=== PATIENT | female | born 1970 | race Caucasian/White ===

== ENCOUNTER 2016-07-27 13:03 | Emergency (ER) | payer BC ==
[~2016-07-27 13:03] MED LIST: ASPI81TA60 PO; DIAM500C PO; LIPI10TA PO; LIPI20TA PO; LOPR50TA PO; METO25TAB PO; PRED5TA PO; SENO8.6T2 PO; VITA500T53 PO
[2016-07-27] MEDS ORDERED: MORPHINE 4 MG/ML 1ML SYRINGE As Ordered ONE (14:40)
[2016-07-27] MEDS ORDERED: KETOROLAC 30 MG/ML VIAL (J1885) As Ordered ONE (14:40)
--- NOTE | 2016-07-27 15:02 | REP ---
Clinical: Renal colic. Comparison: 07/10/2014 Findings: Lung bases clear. Visualized heart and pericardium normal. Fatty infiltration to the liver noted. Spleen, pancreas, gallbladder, bilateral adrenal glands and kidneys are normal for noncontrast evaluation. The enteric system is without obstruction or acute inflammatory process. Pelvis demonstrates normal bladder and evidence for prior hysterectomy. Small left ovarian cyst is likely physiologic. An epidural catheter at the level of the L3 extends through the subcutaneous tissues into the abdomen. No pelvic fluid or ascites. No obvious adenopathy. Abdominal aorta without aneurysm. Skeletal structures without focal osseous abnormality. Impression: No acute intra-abdominal or pelvic pathology appreciated. Fatty infiltration to the liver. Chronic stable changes as described above. Signed by Tristan Christensen MD 07/27/2016 02:54 P
[2016-07-27 15:07] LABS: BASO % 0.3 % (0.0-1.0); EOS # 0.1 K/mm3 (0.0-0.50); EOS % 0.7 % (0.0-3.0); LARGE UNSTAINED CELL # 0.1 K/mm3 (0.0-0.4); LARGE UNSTAINED CELL % 0.9 % (0.0-4.0); LYMPH # 1.7 K/mm3 (1.5-4.5); MEAN CORPUSCULAR HEMOGLOBIN 28.7 pg (27.0-33.0); MEAN CORPUSCULAR HGB CONC 32.8 g/dl (32.0-36.5); MEAN CORPUSCULAR VOLUME 87.6 fl (80.0-96.0); MONO # 0.6 K/mm3 (0.0-0.8); NEUTROPHILS # 12.5 K/mm3 (1.8-7.7); NEUTROPHILS % 83.2 % (36.0-66.0); PLATELET COUNT, AUTOMATED 314 k/mm3 (150-450); RED CELL DISTRIBUTION WIDTH 13.4 % (11.5-14.5); WHITE BLOOD COUNT 15.1 K/mm3 (4.0-10.0)
[2016-07-27 15:26] LABS: ALBUMIN 3.6 GM/DL (3.2-5.2); ALBUMIN/GLOBULIN RATIO 0.84 (1.00-1.93); ALKALINE PHOSPHATASE 116 U/L (45-117); ALT/SGPT 33 U/L (12-78); AMYLASE 25 U/L (25-115); ANION GAP 7 MEQ/L (8-16); AST/SGOT 14 U/L (15-37); BILIRUBIN,DIRECT < 0.1 MG/DL (0.0-0.2); BILIRUBIN,TOTAL 0.3 MG/DL (0.2-1.0); BLOOD UREA NITROGEN 10 MG/DL (7-18); CARBON DIOXIDE LEVEL 29 MEQ/L (21-32); CHLORIDE LEVEL 103 MEQ/L (98-107); CREATININE FOR GFR 0.75 MG/DL (0.55-1.02); GLOMERULAR FILTRATION RATE > 60.0 (>58); GLUCOSE, FASTING 92 MG/DL (70-105); POTASSIUM SERUM 4.1 MEQ/L (3.5-5.1); SODIUM LEVEL 139 MEQ/L (136-145); TOTAL PROTEIN 7.9 GM/DL (6.4-8.2)
[2016-07-27] MEDS ORDERED: PHENAZOPYRIDINE 100 MG TAB As Ordered ONE (15:40)
[2016-07-27] MEDS ORDERED: NITROFURANTOIN (MACROBID) 100 MG CAP As Ordered ONE (15:40)
--- NOTE | 2016-07-27 15:50 | EDDOCDS ---
Physician Documentation [facility] Name: Mayra Tena Age: 46 yrs Sex: Female : 1970 Arrival Date: 07/27/2016 Time: 13:03 Bed I5 / M5 Private MD: Karen Montemayor Disposition: 07/27/16 15:40 Discharged to Home/Self Care. Impression: Urinary tract infection, site not specified, Fatty (change of) liver, not elsewhere classified. - Condition is Stable. - Discharge Instructions: Urinary Tract Infection, [id number]. - Prescriptions for Pyridium 200 mg Oral Tablet - take 1 tablet by ORAL route every 8 hours for 3 days; 9 tablet. Macrobid 100 mg Oral Capsule - take 100 milligram by ORAL route every 12 hours for 10 days; 20 capsule. Percocet 5- 325 mg Oral Tablet - take 1 tablet by ORAL route every 6 hours As needed MDD: 4 tabs; 10 tablet. - Medication Reconciliation, Local Pharmacy Hours form. - Follow up: Karen Montemayor; When: 1 - 2 days; Reason: Recheck today's complaints, Continuance of care. Follow up: Emergency Department; Reason: Worsening of conditions. - Problem is new. - Symptoms have improved. Historical: - Allergies: no known allergies; - Home Meds: 1. aspirin 81 mg Oral chew 1 tab once daily 2. metformin 500 mg Oral Tb24 2 tabs once daily 3. lisinopril 10 mg Oral tab 1 tab once daily - PMHx: CVA; psoriatic arthritis; TIA; Hypertension; Diabetes - NIDDM: controlled; - PSHx: LP shunt; Cervical Laminectomy; Appendectomy; Hysterectomy; Tubal ligation; ; - Social history: Smoking status: No barriers to communication noted, The patient speaks fluent Faroese. - Family history: Not pertinent. - : The pt / caregiver states he / she is not on anticoagulants. Home medication list is obtained from the patient. 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 3 in. (160.02 cm) (R); Pain 4/10; 15:34 BP 129 / 62; Pulse 75; Resp 20; Temp 97.3(O); Pulse Ox 100% on R/A; Pain 1/10; jml1 13:06 Body Mass Index 38.62 (98.88 kg, 160.02 cm) sar1 MDM: 13:31 UA Ordered. EDMS 13:31 Urine Culture Ordered. EDMS 14:24 UA Reviewed. ef1 14:32 NS 0.9% 1000 ml IV at bolus once ordered. ef1 14:32 ketorolac 30 mg IVP once ordered. ef1 14:32 IV Saline Lock ordered. ef1 14:32 Undress patient appropriately for examination ordered. ef1 14:32 morphine 4 mg IVP once ordered. ef1 14:34 Amylase Ordered. EDMS 14:34 Basic Metabolic Profile Ordered. EDMS 14:34 CBC with Diff Ordered. EDMS 14:34 Lipase Ordered. EDMS 14:34 Liver Profile Ordered. EDMS 14:34 CT ABD & PELVIS: No Contrast Ordered. EDMS 14:34 NOTHING BY MOUTH+DIET ordered. EDMS 15:33 Basic Metabolic Profile Reviewed. ef1 15:33 CBC with Diff Reviewed. ef1 15:33 Liver Profile Reviewed. ef1 15:33 Amylase Reviewed. ef1 15:33 Lipase Reviewed. ef1 15:33 CT ABD & PELVIS: No Contrast Reviewed. ef1 15:35 Nitrofurantoin 100 mg PO once ordered. ef1 15:35 Phenazopyridine 200 mg PO once ordered. ef1 Administered Medications: 14:56 Drug: NS 0.9% 1000 ml [sodium chloride 0.9 % intravenous solution] Route: IV; Rate: hs1 bolus; Site: right antecubital; 14:56 Drug: ketorolac 30 mg [ketorolac 30 mg/mL (1 mL) injection solution (1 mL)] Route: IVP; hs1 Site: right antecubital; 14:56 Drug: morphine 4 mg [morphine 4 mg/mL intravenous cartridge (1 mL)] Route: IVP; Site: hs1 right antecubital; 15:44 Drug: Nitrofurantoin 100 mg [nitrofurantoin macrocrystal 50 mg capsule (2 caps)] Route: jmb PO; 15:44 Drug: Phenazopyridine 200 mg [phenazopyridine 100 mg tablet (2 tabs)] Route: PO; ina Signatures: Dispatcher [employer] Bin PedroRN Rachelle Lyles PA-C PA-C ef1 Jose Eduardo TeixeiraRN RN jmb Carmelita Pena RN hs1 MTDD
--- NOTE | 2016-07-27 15:50 | EDDOCDS ---
Nurse's Notes [facility] Name: Mayra Tena Age: 46 yrs Sex: Female : 1970 Arrival Date: 07/27/2016 Time: 13:03 Bed I5 / M5 Private MD: Karen Montemayor Diagnosis: Urinary tract infection, site not specified;Fatty (change of) liver, not elsewhere classified Presentation: 07/27 13:10 Presenting complaint: Patient states: burning with urination, frequency, cloudy urine, po pressure and lower back pain. Adult Sepsis Screening: The patient does not have new or worsening altered mentation. Patient's respiratory rate is less than 22. Systolic blood pressure is greater than 100. Patient has a qSOFA score of 0- Negative Sepsis Screen. Suicide/Homicide risk assessment- the patient denies having any suicidal and/or homicidal ideations and does not present with any other emotional, behavioral or mental health complaints. Status: Patient is not a statistical machine servicer or dependent. Transition of care: patient was not received from another setting of care. 13:10 Acuity: TESSA Level 4 po 13:10 Method Of Arrival: Walkin/Carried/Asstd po Triage Assessment: 13:16 General: Appears in no apparent distress, Behavior is appropriate for age, cooperative. po Pain: Location: low back area and suprapubic area Pain currently is 4 out of 10 on a pain scale. Quality of pain is described as pressure, Is continuous. HIV screening NA for this visit Offered previously. Neurological: Level of Consciousness is awake, alert, Oriented to person, place, time. Respiratory: Airway is patent Respiratory effort is even, unlabored. : Reports burning with urination urinary frequency. Derm: Skin is pink, warm & dry. 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 aspirin 81 mg Oral chew 1 tab once daily 2. metformin 500 mg Oral Tb24 2 tabs once daily 3. lisinopril 10 mg Oral tab 1 tab once daily - PMHx: CVA; psoriatic arthritis; TIA; Hypertension; Diabetes - NIDDM: controlled; - PSHx: LP shunt; Cervical Laminectomy; Appendectomy; Hysterectomy; Tubal ligation; ; - Social history: Smoking status: No barriers to communication noted, The patient speaks fluent Yemeni. - Family history: Not pertinent. - : The pt / caregiver states he / she is not on anticoagulants. Home medication list is obtained from the patient. 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 Screenin:58 Screening information is obtained from the patient. Fall risk: No risks identified. hs1 Assistance ADL's: requires no assistance with activities of daily living. Abuse/DV Screen: The patient / caregiver reports he/she is: not in a situation that causes fear, pain or injury. Nutritional screening: No deficits noted. Advance Directives: There is no active DNR order. home support is adequate. Assessment: 14:58 General: Appears in no apparent distress, Behavior is appropriate for age, cooperative. hs1 Pain: Location: pelvis. Cardiovascular: No deficits noted. GI: Reports nausea. : Reports burning with urination urinary frequency. Derm: Skin is pink, warm & dry. normal. 15:24 Reassessment: Patient appears in no apparent distress at this time. Patient states hs1 feeling better. Patient states symptoms have improved. Pain: Location: pelvis Pain currently is 4 out of 10 on a pain scale. Quality of pain is described as burning. 15:45 General: Patient instructed on discharge instructions. Patient asked if there were any [facility] questions regarding discharge, patient stated no. IV discontinued per hospital policy. Patient signed discharge instructions. Patient discharged in stable condition. . Vital Signs: 13:06 BP 122 / 67; Pulse 85; Resp 18; Temp 97.4(O); Pulse Ox 99% on R/A; Weight 98.88 kg (R); sar1 Height 5 ft. 3 in. (160.02 cm) (R); Pain 4/10; 15:34 BP 129 / 62; Pulse 75; Resp 20; Temp 97.3(O); Pulse Ox 100% on R/A; Pain 1/10; jml1 13:06 Body Mass Index 38.62 (98.88 kg, 160.02 cm) [facility] Vitals: 13:06 Log In Time: July 27, 2016 at 13:06. [facility] ED Course: 13:04 Patient visited by Teri Pérez, Motion Picture Projectionist. sar1 13:04 Patient moved to Waiting sar 13:06 Karen Montemayor MD is Private Physician. sar1 13:07 Patient moved to Pre RCE sar1 13:12 Triage Initiated po 13:16 Arm band placed on right wrist. Patient placed in waiting room. po 13:18 Patient visited by Bin Hernandez RN. po 13:49 Patient moved to Triage 3 rn1 13:58 Urine Culture Sent. rn1 13:58 UA Sent. rn1 14:17 Rachelle Ferrari PA-C is [facility]. ef1 14:17 Miya Cruz MD is Attending Physician. ef1 14:19 Patient visited by Rachelle Ferrari PA-C. ef1 14:33 Mary Rodriguez, JAMAAL is Primary Nurse. ms18 14:33 Patient moved to I5 / M5 ms18 14:50 Inserted saline lock: 20 gauge in right antecubital area and blood collected. The hs1 patient tolerated the procedure well. 14:56 Amylase Sent. hs1 14:56 Basic Metabolic Profile Sent. hs1 14:56 CBC with Diff Sent. hs1 14:56 Lipase Sent. hs1 14:57 Liver Profile Sent. hs1 14:58 Patient visited by Carmelita Pena RN. hs1 15:31 CT ABD & PELVIS: No Contrast Returned. EDMS 15:33 Patient visited by Rachelle Ferrari PA-C. ef1 15:34 Patient visited by Zeeshan Jo. jml1 15:40 Karen Montemayor MD is Referral Physician. ef1 15:45 The patient / caregiver is instructed regarding the plan of care and ED course. jmb 15:45 Discontinued lock intact, bleeding controlled, pressure dressing applied, No jmb redness/swelling at site. No procedures done that require assistance. Administered Medications: 14:56 Drug: NS 0.9% 1000 ml [sodium chloride 0.9 % intravenous solution] Route: IV; Rate: hs1 bolus; Site: right antecubital; 14:56 Drug: ketorolac 30 mg [ketorolac 30 mg/mL (1 mL) injection solution (1 mL)] Route: IVP; hs1 Site: right antecubital; 14:56 Drug: morphine 4 mg [morphine 4 mg/mL intravenous cartridge (1 mL)] Route: IVP; Site: hs1 right antecubital; 15:44 Drug: Nitrofurantoin 100 mg [nitrofurantoin macrocrystal 50 mg capsule (2 caps)] Route: [facility] PO; 15:44 Drug: Phenazopyridine 200 mg [phenazopyridine 100 mg tablet (2 tabs)] Route: PO; [facility] Order Results: Lab Order: UA; SPEC'M 07/27/16 13:55 Test: APPEARANCE, URINE; Value: CLEAR; Range: CLEAR; Status: F Test: COLOR, URINE; Value: COLORLESS; Range: YELLOW; Status: F Test: PH,URINE; Value: 6.0; Range: 5.0-9.0; Units: UNITS; Status: F Test: SPECIFIC GRAVITY URINE AUTO; Value: 1.000; Range: 1.002-1.035; Abnormal: Below low normal; Status: F Test: PROTEIN, URINE AUTO; Value: NEGATIVE; Range: NEGATIVE; Units: mg/dL; Status: F Test: GLUCOSE, URINE (UA) AUTO; Value: NEGATIVE; Range: NEGATIVE; Units: mg/dL; Status: F Test: KETONE, URINE AUTO; Value: NEGATIVE; Range: NEGATIVE; Units: mg/dL; Status: F Test: UROBILINOGEN, URINE AUTO; Value: 0.2; Range: 0.0-2.0; Units: mg/dL; Status: F Test: BILIRUBIN, URINE AUTO; Value: NEGATIVE; Range: NEGATIVE; Status: F Test: NITRITE, URINE AUTO; Value: NEGATIVE; Range: NEGATIVE; Status: F Test: LEUKOCYTE ESTERASE, URINE AUTO; Value: 3+; Range: NEGATIVE; Abnormal: Above high normal; Status: F Test: BLOOD, URINE BLOOD; Value: 3+; Range: NEGATIVE; Abnormal: Above high normal; Status: F Test: WBC, URINE AUTO; Value: 7; Range: 0-3; Abnormal: Above high normal; Units: /HPF; Status: F Test: RBC, URINE AUTO; Value: 0; Range: 0-3; Units: /HPF; Status: F Test: BACTERIA, URINE AUTO; Value: NEGATIVE; Range: NEGATIVE; Status: F Test: SQUAMOUS EPITHELIAL CELL UR AU; Value: 0; Range: 0-6; Units: /HPF; Status: F Test: HYALINE CAST, URINE AUTO; Value: 0; Range: 0-1; Units: /LPF; Status: F Lab Order: Amylase; SPEC'M 07/27/16 14:53 Test: AMYLASE; Value: 25; Range: 25-115; Units: U/L; Status: F Lab Order: Basic Metabolic Profile; SPEC'M 07/27/16 14:53 Test: GLUCOSE, FASTING; Value: 92; Range: 70-105; Units: MG/DL; Status: F Test: BLOOD UREA NITROGEN; Value: 10; Range: 7-18; Units: MG/DL; Status: F Test: CREATININE FOR GFR; Value: 0.75; Range: 0.55-1.02; Units: MG/DL; Status: F Test: GLOMERULAR FILTRATION RATE; Value: > 60.0; Range: >58; Status: F Test: SODIUM LEVEL; Value: 139; Range: 136-145; Units: MEQ/L; Status: F Test: POTASSIUM SERUM; Value: 4.1; Range: 3.5-5.1; Units: MEQ/L; Status: F Test: CHLORIDE LEVEL; Value: 103; Range: 98-107; Units: MEQ/L; Status: F Test: CARBON DIOXIDE LEVEL; Value: 29; Range: 21-32; Units: MEQ/L; Status: F Test: ANION GAP; Value: 7; Range: 8-16; Abnormal: Below low normal; Units: MEQ/L; Status: F Test: CALCIUM LEVEL; Value: 9.0; Range: 8.5-10.1; Units: MG/DL; Status: F Test Note: ; Units are mL/min/1.73 m2 Chronic Kidney Disease Staging per NKF: Stage I & II GFR >=60 Normal to Mildly Decreased Stage III GFR 30-59 Moderately Decreased Stage IV GFR 15-29 Severely Decreased Stage V GFR <15 Very Little GFR Left ESRD GFR <15 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 Lab Order: CBC with Diff; SPEC'M 07/27/16 14:53 Test: WHITE BLOOD COUNT; Value: 15.1; Range: 4.0-10.0; Abnormal: Above high normal; Units: K/mm3; Status: F Test: RED BLOOD COUNT; Value: 4.87; Range: 4.00-5.40; Units: M/mm3; Status: F Test: HEMOGLOBIN; Value: 14.0; Range: 12.0-16.0; Units: g/dl; Status: F Test: HEMATOCRIT; Value: 42.7; Range: 36.0-47.0; Units: %; Status: F Test: MEAN CORPUSCULAR VOLUME; Value: 87.6; Range: 80.0-96.0; Units: fl; Status: F Test: MEAN CORPUSCULAR HEMOGLOBIN; Value: 28.7; Range: 27.0-33.0; Units: pg; Status: F Test: MEAN CORPUSCULAR HGB CONC; Value: 32.8; Range: 32.0-36.5; Units: g/dl; Status: F Test: RED CELL DISTRIBUTION WIDTH; Value: 13.4; Range: 11.5-14.5; Units: %; Status: F Test: PLATELET COUNT, AUTOMATED; Value: 314; Range: 150-450; Units: k/mm3; Status: F Test: NEUTROPHILS %; Value: 83.2; Range: 36.0-66.0; Abnormal: Above high normal; Units: %; Status: F Test: LYMPH %; Value: 11.0; Range: 24.0-44.0; Abnormal: Below low normal; Units: %; Status: F Test: MONO %; Value: 4.0; Range: 0.0-5.0; Units: %; Status: F Test: EOS %; Value: 0.7; Range: 0.0-3.0; Units: %; Status: F Test: BASO %; Value: 0.3; Range: 0.0-1.0; Units: %; Status: F Test: LARGE UNSTAINED CELL %; Value: 0.9; Range: 0.0-4.0; Units: %; Status: F Test: NEUTROPHILS #; Value: 12.5; Range: 1.8-7.7; Abnormal: Above high normal; Units: K/mm3; Status: F Test: LYMPH #; Value: 1.7; Range: 1.5-4.5; Units: K/mm3; Status: F Test: MONO #; Value: 0.6; Range: 0.0-0.8; Units: K/mm3; Status: F Test: EOS #; Value: 0.1; Range: 0.0-0.50; Units: K/mm3; Status: F Test: BASO #; Value: 0.0; Range: 0.0-0.2; Units: K/mm3; Status: F Test: LARGE UNSTAINED CELL #; Value: 0.1; Range: 0.0-0.4; Units: K/mm3; Status: F Lab Order: Lipase; SPEC'M 07/27/16 14:53 Test: LIPASE; Value: 76; Range: 73-393; Units: U/L; Status: F Lab Order: Liver Profile; SPEC'M 07/27/16 14:53 Test: AST/SGOT; Value: 14; Range: 15-37; Abnormal: Below low normal; Units: U/L; Status: F Test: ALT/SGPT; Value: 33; Range: 12-78; Units: U/L; Status: F Test: ALKALINE PHOSPHATASE; Value: 116; Range: 45-117; Units: U/L; Status: F Test: BILIRUBIN,TOTAL; Value: 0.3; Range: 0.2-1.0; Units: MG/DL; Status: F Test: BILIRUBIN,DIRECT; Value: < 0.1; Range: 0.0-0.2; Units: MG/DL; Status: F Test: TOTAL PROTEIN; Value: 7.9; Range: 6.4-8.2; Units: GM/DL; Status: F Test: ALBUMIN; Value: 3.6; Range: 3.2-5.2; Units: GM/DL; Status: F Test: ALBUMIN/GLOBULIN RATIO; Value: 0.84; Range: 1.00-1.93; Abnormal: Below low normal; Status: F Radiology Order: CT ABD & PELVIS: No Contrast Test: CT ABD & PELVIS: No Contrast REASON FOR EXAMINATION: Renal colic; Clinical: Renal colic.; ; Comparison: 07/10/2014; ; Findings:; Lung bases clear. Visualized heart and pericardium normal.; ; Fatty infiltration to the liver noted. Spleen, pancreas, gallbladder, bilateral; adrenal glands and kidneys are normal for noncontrast evaluation. The enteric; system is without obstruction or acute inflammatory process. Pelvis demonstrates; normal bladder and evidence for prior hysterectomy. Small left ovarian cyst is; likely physiologic. An epidural catheter at the level of the L3 extends through; the subcutaneous tissues into the abdomen. No pelvic fluid or ascites. No; obvious adenopathy. Abdominal aorta without aneurysm. Skeletal structures; without focal osseous abnormality.; ; Impression:; No acute intra-abdominal or pelvic pathology appreciated.; Fatty infiltration to the liver.; Chronic stable changes as described above.; ; ; Signed by; Tristan Christensen MD 07/27/2016 02:54 P; Outcome: 15:40 Discharge ordered by Provider. ef1 15:45 Discharge Assessment: Patient awake, alert and oriented x 3. No cognitive and/or jmb functional deficits noted. Patient verbalized understanding of disposition instructions. Patient awake and alert. obeys commands, Oriented to person, place and time. Patient verbalized understanding of disposition instructions. Patient has no functional deficits. patient administered narcotics - yes. Pt provided with safe discharge. The following High Risk Discharge criteria are identified: None. Discharged to home ambulatory, with significant other. Condition: stable. Discharge instructions given to patient, Instructed on discharge instructions, follow up and referral plans. medication usage, Demonstrated understanding of instructions, medications, Pt was receptive of discharge instructions/ teaching. No special radiology studies were completed. Property sent home with patient. 15:49 Patient left the ED. ina Signatures: Dispatcher [employer] EDMS Bin Hernandez,RN RN Rachelle Sung, PA-C PA-C ef1 Carmelita Pena, RN RN hs1 Zeeshan Jo jml1 Jose Eduardo TeixeiraRN RN emilyb Brunilda Fox,JAMAAL RN ms18 Teri Pérez, Motion Picture Projectionist Unit sar1 Christophe Luevano rn1 MTDD
--- NOTE | 2016-07-29 16:50 | EDDOCDS ---
Physician Documentation [facility] Name: Mayra Tena Age: 46 yrs Sex: Female : 1970 Arrival Date: 07/27/2016 Time: 13:03 Bed I5 / M5 Private MD: Karen Montemayor Disposition: 07/27/16 15:40 Discharged to Home/Self Care. Impression: Urinary tract infection, site not specified, Fatty (change of) liver, not elsewhere classified. - Condition is Stable. - Discharge Instructions: Urinary Tract Infection, [id number]. - Prescriptions for Pyridium 200 mg Oral Tablet - take 1 tablet by ORAL route every 8 hours for 3 days; 9 tablet. Macrobid 100 mg Oral Capsule - take 100 milligram by ORAL route every 12 hours for 10 days; 20 capsule. Percocet 5- 325 mg Oral Tablet - take 1 tablet by ORAL route every 6 hours As needed MDD: 4 tabs; 10 tablet. - Medication Reconciliation, Local Pharmacy Hours form. - Follow up: Karen Montemayor; When: 1 - 2 days; Reason: Recheck today's complaints, Continuance of care. Follow up: Emergency Department; Reason: Worsening of conditions. - Problem is new. - Symptoms have improved. Historical: - Allergies: no known allergies; - Home Meds: 1. aspirin 81 mg Oral chew 1 tab once daily 2. metformin 500 mg Oral Tb24 2 tabs once daily 3. lisinopril 10 mg Oral tab 1 tab once daily - PMHx: CVA; psoriatic arthritis; TIA; Hypertension; Diabetes - NIDDM: controlled; - PSHx: LP shunt; Cervical Laminectomy; Appendectomy; Hysterectomy; Tubal ligation; ; - Social history: Smoking status: No barriers to communication noted, The patient speaks fluent Lithuanian. - Family history: Not pertinent. - : The pt / caregiver states he / she is not on anticoagulants. Home medication list is obtained from the patient. 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 3 in. (160.02 cm) (R); Pain 4/10; 15:34 BP 129 / 62; Pulse 75; Resp 20; Temp 97.3(O); Pulse Ox 100% on R/A; Pain 1/10; jml1 13:06 Body Mass Index 38.62 (98.88 kg, 160.02 cm) sar1 MDM: 13:31 UA Ordered. EDMS 13:31 Urine Culture Ordered. EDMS 14:24 UA Reviewed. ef1 14:32 NS 0.9% 1000 ml IV at bolus once ordered. ef1 14:32 ketorolac 30 mg IVP once ordered. ef1 14:32 IV Saline Lock ordered. ef1 14:32 Undress patient appropriately for examination ordered. ef1 14:32 morphine 4 mg IVP once ordered. ef1 14:34 Amylase Ordered. EDMS 14:34 Basic Metabolic Profile Ordered. EDMS 14:34 CBC with Diff Ordered. EDMS 14:34 Lipase Ordered. EDMS 14:34 Liver Profile Ordered. EDMS 14:34 CT ABD & PELVIS: No Contrast Ordered. EDMS 14:34 NOTHING BY MOUTH+DIET ordered. EDMS 15:33 Basic Metabolic Profile Reviewed. ef1 15:33 CBC with Diff Reviewed. ef1 15:33 Liver Profile Reviewed. ef1 15:33 Amylase Reviewed. ef1 15:33 Lipase Reviewed. ef1 15:33 CT ABD & PELVIS: No Contrast Reviewed. ef1 15:35 Nitrofurantoin 100 mg PO once ordered. ef1 15:35 Phenazopyridine 200 mg PO once ordered. ef1 07/28 05:49 T-Sheet-- Draft Copy was scanned into appsplit and attached to record. hs2 Administered Medications: 07/27 14:56 Drug: NS 0.9% 1000 ml [sodium chloride 0.9 % intravenous solution] Route: IV; Rate: hs1 bolus; Site: right antecubital; 14:56 Drug: ketorolac 30 mg [ketorolac 30 mg/mL (1 mL) injection solution (1 mL)] Route: IVP; hs1 Site: right antecubital; 14:56 Drug: morphine 4 mg [morphine 4 mg/mL intravenous cartridge (1 mL)] Route: IVP; Site: hs1 right antecubital; 15:44 Drug: Nitrofurantoin 100 mg [nitrofurantoin macrocrystal 50 mg capsule (2 caps)] Route: jmb PO; 15:44 Drug: Phenazopyridine 200 mg [phenazopyridine 100 mg tablet (2 tabs)] Route: PO; ina Signatures: Dispatcher [employer] Bin Pedro,RN RN po Rachelle Ferrari PA-C PA-C ef1 Jose Eduardo Teixeira RN RN jmb Hollie Milner, Reg Reg hs2 Carmelita Pena RN hs1 The chart was reviewed and I authenticate all verbal orders and agree with the evaluation and treatment provided.Attachments: 07/28 05:49 T-Sheet-- Draft Copy hs2 Chart Complete MTDD
--- NOTE | 2016-07-29 16:50 | EDDOCDS ---
Physician Documentation [facility] Name: Mayra Tena Age: 46 yrs Sex: Female : 1970 Arrival Date: 07/27/2016 Time: 13:03 Bed I5 / M5 Private MD: Karen Montemayor Disposition: 07/27/16 15:40 Discharged to Home/Self Care. Impression: Urinary tract infection, site not specified, Fatty (change of) liver, not elsewhere classified. - Condition is Stable. - Discharge Instructions: Urinary Tract Infection, [id number]. - Prescriptions for Pyridium 200 mg Oral Tablet - take 1 tablet by ORAL route every 8 hours for 3 days; 9 tablet. Macrobid 100 mg Oral Capsule - take 100 milligram by ORAL route every 12 hours for 10 days; 20 capsule. Percocet 5- 325 mg Oral Tablet - take 1 tablet by ORAL route every 6 hours As needed MDD: 4 tabs; 10 tablet. - Medication Reconciliation, Local Pharmacy Hours form. - Follow up: Karen Montemayor; When: 1 - 2 days; Reason: Recheck today's complaints, Continuance of care. Follow up: Emergency Department; Reason: Worsening of conditions. - Problem is new. - Symptoms have improved. Historical: - Allergies: no known allergies; - Home Meds: 1. aspirin 81 mg Oral chew 1 tab once daily 2. metformin 500 mg Oral Tb24 2 tabs once daily 3. lisinopril 10 mg Oral tab 1 tab once daily - PMHx: CVA; psoriatic arthritis; TIA; Hypertension; Diabetes - NIDDM: controlled; - PSHx: LP shunt; Cervical Laminectomy; Appendectomy; Hysterectomy; Tubal ligation; ; - Social history: Smoking status: No barriers to communication noted, The patient speaks fluent Kyrgyz. - Family history: Not pertinent. - : The pt / caregiver states he / she is not on anticoagulants. Home medication list is obtained from the patient. 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 3 in. (160.02 cm) (R); Pain 4/10; 15:34 BP 129 / 62; Pulse 75; Resp 20; Temp 97.3(O); Pulse Ox 100% on R/A; Pain 1/10; jml1 13:06 Body Mass Index 38.62 (98.88 kg, 160.02 cm) sar1 MDM: 13:31 UA Ordered. EDMS 13:31 Urine Culture Ordered. EDMS 14:24 UA Reviewed. ef1 14:32 NS 0.9% 1000 ml IV at bolus once ordered. ef1 14:32 ketorolac 30 mg IVP once ordered. ef1 14:32 IV Saline Lock ordered. ef1 14:32 Undress patient appropriately for examination ordered. ef1 14:32 morphine 4 mg IVP once ordered. ef1 14:34 Amylase Ordered. EDMS 14:34 Basic Metabolic Profile Ordered. EDMS 14:34 CBC with Diff Ordered. EDMS 14:34 Lipase Ordered. EDMS 14:34 Liver Profile Ordered. EDMS 14:34 CT ABD & PELVIS: No Contrast Ordered. EDMS 14:34 NOTHING BY MOUTH+DIET ordered. EDMS 15:33 Basic Metabolic Profile Reviewed. ef1 15:33 CBC with Diff Reviewed. ef1 15:33 Liver Profile Reviewed. ef1 15:33 Amylase Reviewed. ef1 15:33 Lipase Reviewed. ef1 15:33 CT ABD & PELVIS: No Contrast Reviewed. ef1 15:35 Nitrofurantoin 100 mg PO once ordered. ef1 15:35 Phenazopyridine 200 mg PO once ordered. ef1 07/28 05:49 T-Sheet-- Draft Copy was scanned into [employer] and attached to record. hs2 Administered Medications: 07/27 14:56 Drug: NS 0.9% 1000 ml [sodium chloride 0.9 % intravenous solution] Route: IV; Rate: hs1 bolus; Site: right antecubital; 14:56 Drug: ketorolac 30 mg [ketorolac 30 mg/mL (1 mL) injection solution (1 mL)] Route: IVP; hs1 Site: right antecubital; 14:56 Drug: morphine 4 mg [morphine 4 mg/mL intravenous cartridge (1 mL)] Route: IVP; Site: hs1 right antecubital; 15:44 Drug: Nitrofurantoin 100 mg [nitrofurantoin macrocrystal 50 mg capsule (2 caps)] Route: jmb PO; 15:44 Drug: Phenazopyridine 200 mg [phenazopyridine 100 mg tablet (2 tabs)] Route: PO; ina Signatures: Dispatcher [employer] Bin Pedro,RN RN po Rachelle Ferrari PA-C PA-C ef1 Jose Eduardo Teixeira RN RN jmb Hollie Milner, Reg Reg hs2 Carmelita Pena RN hs1 The chart was reviewed and I authenticate all verbal orders and agree with the evaluation and treatment provided.Attachments: 07/28 05:49 T-Sheet-- Draft Copy hs2 Chart Complete MTDD
--- NOTE | 2016-07-29 16:51 | EDDOCDS ---
Nurse's Notes [facility] Name: Mayra Tena Age: 46 yrs Sex: Female : 1970 Arrival Date: 07/27/2016 Time: 13:03 Bed I5 / M5 Private MD: Karen Montemayor Diagnosis: Urinary tract infection, site not specified;Fatty (change of) liver, not elsewhere classified Presentation: 07/27 13:10 Presenting complaint: Patient states: burning with urination, frequency, cloudy urine, po pressure and lower back pain. Adult Sepsis Screening: The patient does not have new or worsening altered mentation. Patient's respiratory rate is less than 22. Systolic blood pressure is greater than 100. Patient has a qSOFA score of 0- Negative Sepsis Screen. Suicide/Homicide risk assessment- the patient denies having any suicidal and/or homicidal ideations and does not present with any other emotional, behavioral or mental health complaints. Status: Patient is not a body service team member or dependent. Transition of care: patient was not received from another setting of care. 13:10 Acuity: TESSA Level 4 po 13:10 Method Of Arrival: Walkin/Carried/Asstd po Triage Assessment: 13:16 General: Appears in no apparent distress, Behavior is appropriate for age, cooperative. po Pain: Location: low back area and suprapubic area Pain currently is 4 out of 10 on a pain scale. Quality of pain is described as pressure, Is continuous. HIV screening NA for this visit Offered previously. Neurological: Level of Consciousness is awake, alert, Oriented to person, place, time. Respiratory: Airway is patent Respiratory effort is even, unlabored. : Reports burning with urination urinary frequency. Derm: Skin is pink, warm & dry. 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 aspirin 81 mg Oral chew 1 tab once daily 2. metformin 500 mg Oral Tb24 2 tabs once daily 3. lisinopril 10 mg Oral tab 1 tab once daily - PMHx: CVA; psoriatic arthritis; TIA; Hypertension; Diabetes - NIDDM: controlled; - PSHx: LP shunt; Cervical Laminectomy; Appendectomy; Hysterectomy; Tubal ligation; ; - Social history: Smoking status: No barriers to communication noted, The patient speaks fluent Lithuanian. - Family history: Not pertinent. - : The pt / caregiver states he / she is not on anticoagulants. Home medication list is obtained from the patient. 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 Screenin:58 Screening information is obtained from the patient. Fall risk: No risks identified. hs1 Assistance ADL's: requires no assistance with activities of daily living. Abuse/DV Screen: The patient / caregiver reports he/she is: not in a situation that causes fear, pain or injury. Nutritional screening: No deficits noted. Advance Directives: There is no active DNR order. home support is adequate. Assessment: 14:58 General: Appears in no apparent distress, Behavior is appropriate for age, cooperative. hs1 Pain: Location: pelvis. Cardiovascular: No deficits noted. GI: Reports nausea. : Reports burning with urination urinary frequency. Derm: Skin is pink, warm & dry. normal. 15:24 Reassessment: Patient appears in no apparent distress at this time. Patient states hs1 feeling better. Patient states symptoms have improved. Pain: Location: pelvis Pain currently is 4 out of 10 on a pain scale. Quality of pain is described as burning. 15:45 General: Patient instructed on discharge instructions. Patient asked if there were any [facility] questions regarding discharge, patient stated no. IV discontinued per hospital policy. Patient signed discharge instructions. Patient discharged in stable condition. . Vital Signs: 13:06 BP 122 / 67; Pulse 85; Resp 18; Temp 97.4(O); Pulse Ox 99% on R/A; Weight 98.88 kg (R); sar1 Height 5 ft. 3 in. (160.02 cm) (R); Pain 4/10; 15:34 BP 129 / 62; Pulse 75; Resp 20; Temp 97.3(O); Pulse Ox 100% on R/A; Pain 1/10; jml1 13:06 Body Mass Index 38.62 (98.88 kg, 160.02 cm) [facility] Vitals: 13:06 Log In Time: July 27, 2016 at 13:06. [facility] ED Course: 13:04 Patient visited by Teri Pérez, Snipper. sar1 13:04 Patient moved to Waiting sar 13:06 Karen Montemayor MD is Private Physician. sar1 13:07 Patient moved to Pre RCE sar1 13:12 Triage Initiated po 13:16 Arm band placed on right wrist. Patient placed in waiting room. po 13:18 Patient visited by Bin Hernandez RN. po 13:49 Patient moved to Triage 3 rn1 13:58 Urine Culture Sent. rn1 13:58 UA Sent. rn1 14:17 [facility] ef1 14:17 Miya Cruz MD is Attending Physician. ef1 14:19 Patient visited by Rachelle Ferrari PA-C. ef1 14:33 Mary Rodriguez, JAMAAL is Primary Nurse. ms18 14:33 Patient moved to I5 / M5 ms18 14:50 Inserted saline lock: 20 gauge in right antecubital area and blood collected. The hs1 patient tolerated the procedure well. 14:56 Amylase Sent. hs1 14:56 Basic Metabolic Profile Sent. hs1 14:56 CBC with Diff Sent. hs1 14:56 Lipase Sent. hs1 14:57 Liver Profile Sent. hs1 14:58 Patient visited by Carmelita Pena RN. hs1 15:31 CT ABD & PELVIS: No Contrast Returned. EDMS 15:33 Patient visited by Rachelle Ferrari PA-C. ef1 15:34 Patient visited by Zeeshan Jo. jml1 15:40 Karen Montemayor MD is Referral Physician. ef1 15:45 The patient / caregiver is instructed regarding the plan of care and ED course. jmb 15:45 Discontinued lock intact, bleeding controlled, pressure dressing applied, No jmb redness/swelling at site. No procedures done that require assistance. 07/28 05:49 T-Sheet-- Draft Copy was scanned into [employer] and attached to record. hs2 Administered Medications: 07/27 14:56 Drug: NS 0.9% 1000 ml [sodium chloride 0.9 % intravenous solution] Route: IV; Rate: hs1 bolus; Site: right antecubital; 14:56 Drug: ketorolac 30 mg [ketorolac 30 mg/mL (1 mL) injection solution (1 mL)] Route: IVP; hs1 Site: right antecubital; 14:56 Drug: morphine 4 mg [morphine 4 mg/mL intravenous cartridge (1 mL)] Route: IVP; Site: hs1 right antecubital; 15:44 Drug: Nitrofurantoin 100 mg [nitrofurantoin macrocrystal 50 mg capsule (2 caps)] Route: jmb PO; 15:44 Drug: Phenazopyridine 200 mg [phenazopyridine 100 mg tablet (2 tabs)] Route: PO; [facility] Order Results: Lab Order: UA; SPEC'M 07/27/16 13:55 Test: APPEARANCE, URINE; Value: CLEAR; Range: CLEAR; Status: F Test: COLOR, URINE; Value: COLORLESS; Range: YELLOW; Status: F Test: PH,URINE; Value: 6.0; Range: 5.0-9.0; Units: UNITS; Status: F Test: SPECIFIC GRAVITY URINE AUTO; Value: 1.000; Range: 1.002-1.035; Abnormal: Below low normal; Status: F Test: PROTEIN, URINE AUTO; Value: NEGATIVE; Range: NEGATIVE; Units: mg/dL; Status: F Test: GLUCOSE, URINE (UA) AUTO; Value: NEGATIVE; Range: NEGATIVE; Units: mg/dL; Status: F Test: KETONE, URINE AUTO; Value: NEGATIVE; Range: NEGATIVE; Units: mg/dL; Status: F Test: UROBILINOGEN, URINE AUTO; Value: 0.2; Range: 0.0-2.0; Units: mg/dL; Status: F Test: BILIRUBIN, URINE AUTO; Value: NEGATIVE; Range: NEGATIVE; Status: F Test: NITRITE, URINE AUTO; Value: NEGATIVE; Range: NEGATIVE; Status: F Test: LEUKOCYTE ESTERASE, URINE AUTO; Value: 3+; Range: NEGATIVE; Abnormal: Above high normal; Status: F Test: BLOOD, URINE BLOOD; Value: 3+; Range: NEGATIVE; Abnormal: Above high normal; Status: F Test: WBC, URINE AUTO; Value: 7; Range: 0-3; Abnormal: Above high normal; Units: /HPF; Status: F Test: RBC, URINE AUTO; Value: 0; Range: 0-3; Units: /HPF; Status: F Test: BACTERIA, URINE AUTO; Value: NEGATIVE; Range: NEGATIVE; Status: F Test: SQUAMOUS EPITHELIAL CELL UR AU; Value: 0; Range: 0-6; Units: /HPF; Status: F Test: HYALINE CAST, URINE AUTO; Value: 0; Range: 0-1; Units: /LPF; Status: F Lab Order: Amylase; SPEC'M 07/27/16 14:53 Test: AMYLASE; Value: 25; Range: 25-115; Units: U/L; Status: F Lab Order: Basic Metabolic Profile; SPEC'M 07/27/16 14:53 Test: GLUCOSE, FASTING; Value: 92; Range: 70-105; Units: MG/DL; Status: F Test: BLOOD UREA NITROGEN; Value: 10; Range: 7-18; Units: MG/DL; Status: F Test: CREATININE FOR GFR; Value: 0.75; Range: 0.55-1.02; Units: MG/DL; Status: F Test: GLOMERULAR FILTRATION RATE; Value: > 60.0; Range: >58; Status: F Test: SODIUM LEVEL; Value: 139; Range: 136-145; Units: MEQ/L; Status: F Test: POTASSIUM SERUM; Value: 4.1; Range: 3.5-5.1; Units: MEQ/L; Status: F Test: CHLORIDE LEVEL; Value: 103; Range: 98-107; Units: MEQ/L; Status: F Test: CARBON DIOXIDE LEVEL; Value: 29; Range: 21-32; Units: MEQ/L; Status: F Test: ANION GAP; Value: 7; Range: 8-16; Abnormal: Below low normal; Units: MEQ/L; Status: F Test: CALCIUM LEVEL; Value: 9.0; Range: 8.5-10.1; Units: MG/DL; Status: F Test Note: ; Units are mL/min/1.73 m2 Chronic Kidney Disease Staging per NKF: Stage I & II GFR >=60 Normal to Mildly Decreased Stage III GFR 30-59 Moderately Decreased Stage IV GFR 15-29 Severely Decreased Stage V GFR <15 Very Little GFR Left ESRD 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 <15 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: CBC with Diff; SPEC'M 07/27/16 14:53 Test: WHITE BLOOD COUNT; Value: 15.1; Range: 4.0-10.0; Abnormal: Above high normal; Units: K/mm3; Status: F Test: RED BLOOD COUNT; Value: 4.87; Range: 4.00-5.40; Units: M/mm3; Status: F Test: HEMOGLOBIN; Value: 14.0; Range: 12.0-16.0; Units: g/dl; Status: F Test: HEMATOCRIT; Value: 42.7; Range: 36.0-47.0; Units: %; Status: F Test: MEAN CORPUSCULAR VOLUME; Value: 87.6; Range: 80.0-96.0; Units: fl; Status: F Test: MEAN CORPUSCULAR HEMOGLOBIN; Value: 28.7; Range: 27.0-33.0; Units: pg; Status: F Test: MEAN CORPUSCULAR HGB CONC; Value: 32.8; Range: 32.0-36.5; Units: g/dl; Status: F Test: RED CELL DISTRIBUTION WIDTH; Value: 13.4; Range: 11.5-14.5; Units: %; Status: F Test: PLATELET COUNT, AUTOMATED; Value: 314; Range: 150-450; Units: k/mm3; Status: F Test: NEUTROPHILS %; Value: 83.2; Range: 36.0-66.0; Abnormal: Above high normal; Units: %; Status: F Test: LYMPH %; Value: 11.0; Range: 24.0-44.0; Abnormal: Below low normal; Units: %; Status: F Test: MONO %; Value: 4.0; Range: 0.0-5.0; Units: %; Status: F Test: EOS %; Value: 0.7; Range: 0.0-3.0; Units: %; Status: F Test: BASO %; Value: 0.3; Range: 0.0-1.0; Units: %; Status: F Test: LARGE UNSTAINED CELL %; Value: 0.9; Range: 0.0-4.0; Units: %; Status: F Test: NEUTROPHILS #; Value: 12.5; Range: 1.8-7.7; Abnormal: Above high normal; Units: K/mm3; Status: F Test: LYMPH #; Value: 1.7; Range: 1.5-4.5; Units: K/mm3; Status: F Test: MONO #; Value: 0.6; Range: 0.0-0.8; Units: K/mm3; Status: F Test: EOS #; Value: 0.1; Range: 0.0-0.50; Units: K/mm3; Status: F Test: BASO #; Value: 0.0; Range: 0.0-0.2; Units: K/mm3; Status: F Test: LARGE UNSTAINED CELL #; Value: 0.1; Range: 0.0-0.4; Units: K/mm3; Status: F Lab Order: Lipase; SPEC'M 07/27/16 14:53 Test: LIPASE; Value: 76; Range: 73-393; Units: U/L; Status: F Lab Order: Liver Profile; SPEC'M 07/27/16 14:53 Test: AST/SGOT; Value: 14; Range: 15-37; Abnormal: Below low normal; Units: U/L; Status: F Test: ALT/SGPT; Value: 33; Range: 12-78; Units: U/L; Status: F Test: ALKALINE PHOSPHATASE; Value: 116; Range: 45-117; Units: U/L; Status: F Test: BILIRUBIN,TOTAL; Value: 0.3; Range: 0.2-1.0; Units: MG/DL; Status: F Test: BILIRUBIN,DIRECT; Value: < 0.1; Range: 0.0-0.2; Units: MG/DL; Status: F Test: TOTAL PROTEIN; Value: 7.9; Range: 6.4-8.2; Units: GM/DL; Status: F Test: ALBUMIN; Value: 3.6; Range: 3.2-5.2; Units: GM/DL; Status: F Test: ALBUMIN/GLOBULIN RATIO; Value: 0.84; Range: 1.00-1.93; Abnormal: Below low normal; Status: F Radiology Order: CT ABD & PELVIS: No Contrast Test: CT ABD & PELVIS: No Contrast REASON FOR EXAMINATION: Renal colic; Clinical: Renal colic.; ; Comparison: 07/10/2014; ; Findings:; Lung bases clear. Visualized heart and pericardium normal.; ; Fatty infiltration to the liver noted. Spleen, pancreas, gallbladder, bilateral; adrenal glands and kidneys are normal for noncontrast evaluation. The enteric; system is without obstruction or acute inflammatory process. Pelvis demonstrates; normal bladder and evidence for prior hysterectomy. Small left ovarian cyst is; likely physiologic. An epidural catheter at the level of the L3 extends through; the subcutaneous tissues into the abdomen. No pelvic fluid or ascites. No; obvious adenopathy. Abdominal aorta without aneurysm. Skeletal structures; without focal osseous abnormality.; ; Impression:; No acute intra-abdominal or pelvic pathology appreciated.; Fatty infiltration to the liver.; Chronic stable changes as described above.; ; ; Signed by; Tristan Christensen MD 07/27/2016 02:54 P; Outcome: 15:40 Discharge ordered by Provider. ef1 15:45 Discharge Assessment: Patient awake, alert and oriented x 3. No cognitive and/or jmb functional deficits noted. Patient verbalized understanding of disposition instructions. Patient awake and alert. obeys commands, Oriented to person, place and time. Patient verbalized understanding of disposition instructions. Patient has no functional deficits. patient administered narcotics - yes. Pt provided with safe discharge. The following High Risk Discharge criteria are identified: None. Discharged to home ambulatory, with significant other. Condition: stable. Discharge instructions given to patient, Instructed on discharge instructions, follow up and referral plans. medication usage, Demonstrated understanding of instructions, medications, Pt was receptive of discharge instructions/ teaching. No special radiology studies were completed. Property sent home with patient. 15:49 Patient left the ED. b Signatures: Dispatcher [employer] EDWA Bin Hernandez,RN RN Rachelle Sung, PA-C PA-C ef1 Carmelita Pena, RN RN hs1 Zeeshan Jo jml1 Jose Eduardo Teixeira RN RN emilyb Brunilda Fox RN RN ms18 Teri Pérez, Snipper Unit sar1 Christophe Luevano rn1 Hollie Milner, Reg Reg hs2 Chart Complete MTDD
--- NOTE | 2016-07-31 15:08 | EDDOCDS ---
Physician Documentation [facility] Name: Mayra Tena Age: 46 yrs Sex: Female : 1970 Arrival Date: 07/27/2016 Time: 13:03 Bed I5 / M5 Private MD: Karen Montemayor Disposition: 07/27/16 15:40 Discharged to Home/Self Care. Impression: Urinary tract infection, site not specified, Fatty (change of) liver, not elsewhere classified. - Condition is Stable. - Discharge Instructions: Urinary Tract Infection, Raxi-xw-Emls. - Prescriptions for Pyridium 200 mg Oral Tablet - take 1 tablet by ORAL route every 8 hours for 3 days; 9 tablet. Macrobid 100 mg Oral Capsule - take 100 milligram by ORAL route every 12 hours for 10 days; 20 capsule. Percocet 5- 325 mg Oral Tablet - take 1 tablet by ORAL route every 6 hours As needed MDD: 4 tabs; 10 tablet. - Medication Reconciliation, Local Pharmacy Hours form. - Follow up: Karen Montemaoyr; When: 1 - 2 days; Reason: Recheck today's complaints, Continuance of care. Follow up: Emergency Department; Reason: Worsening of conditions. - Problem is new. - Symptoms have improved. Historical: - Allergies: no known allergies; - Home Meds: 1. aspirin 81 mg Oral chew 1 tab once daily 2. metformin 500 mg Oral Tb24 2 tabs once daily 3. lisinopril 10 mg Oral tab 1 tab once daily - PMHx: CVA; psoriatic arthritis; TIA; Hypertension; Diabetes - NIDDM: controlled; - PSHx: LP shunt; Cervical Laminectomy; Appendectomy; Hysterectomy; Tubal ligation; ; - Social history: Smoking status: No barriers to communication noted, The patient speaks fluent Yakut. - Family history: Not pertinent. - : The pt / caregiver states he / she is not on anticoagulants. Home medication list is obtained from the patient. 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 3 in. (160.02 cm) (R); Pain 4/10; 15:34 BP 129 / 62; Pulse 75; Resp 20; Temp 97.3(O); Pulse Ox 100% on R/A; Pain 1/10; jml1 13:06 Body Mass Index 38.62 (98.88 kg, 160.02 cm) sar1 MDM: 13:31 UA Ordered. EDMS 13:31 Urine Culture Ordered. EDMS 14:24 UA Reviewed. ef1 14:32 NS 0.9% 1000 ml IV at bolus once ordered. ef1 14:32 ketorolac 30 mg IVP once ordered. ef1 14:32 IV Saline Lock ordered. ef1 14:32 Undress patient appropriately for examination ordered. ef1 14:32 morphine 4 mg IVP once ordered. ef1 14:34 Amylase Ordered. EDMS 14:34 Basic Metabolic Profile Ordered. EDMS 14:34 CBC with Diff Ordered. EDMS 14:34 Lipase Ordered. EDMS 14:34 Liver Profile Ordered. EDMS 14:34 CT ABD & PELVIS: No Contrast Ordered. EDMS 14:34 NOTHING BY MOUTH+DIET ordered. EDMS 15:33 Basic Metabolic Profile Reviewed. ef1 15:33 CBC with Diff Reviewed. ef1 15:33 Liver Profile Reviewed. ef1 15:33 Amylase Reviewed. ef1 15:33 Lipase Reviewed. ef1 15:33 CT ABD & PELVIS: No Contrast Reviewed. ef1 15:35 Nitrofurantoin 100 mg PO once ordered. ef1 15:35 Phenazopyridine 200 mg PO once ordered. ef1 07/28 05:49 T-Sheet-- Draft Copy was scanned into [employer] and attached to record. hs2 Administered Medications: 07/27 14:56 Drug: NS 0.9% 1000 ml [sodium chloride 0.9 % intravenous solution] Route: IV; Rate: hs1 bolus; Site: right antecubital; 14:56 Drug: ketorolac 30 mg [ketorolac 30 mg/mL (1 mL) injection solution (1 mL)] Route: IVP; hs1 Site: right antecubital; 14:56 Drug: morphine 4 mg [morphine 4 mg/mL intravenous cartridge (1 mL)] Route: IVP; Site: hs1 right antecubital; 15:44 Drug: Nitrofurantoin 100 mg [nitrofurantoin macrocrystal 50 mg capsule (2 caps)] Route: jmb PO; 15:44 Drug: Phenazopyridine 200 mg [phenazopyridine 100 mg tablet (2 tabs)] Route: PO; ina Signatures: Dispatcher [employer] Bin Pedro,RN RN po Rachelle Ferrari PA-C PA-C ef1 Jose Eduardo Teixeira RN RN jmb Hollie Milner, Reg Reg hs2 Carmelita Pena RN hs1 The chart was reviewed and I authenticate all verbal orders and agree with the evaluation and treatment provided.Attachments: 07/28 05:49 T-Sheet-- Draft Copy hs2 MTDD
--- NOTE | 2016-07-31 15:09 | EDDOCDS ---
Physician Documentation [facility] Name: Mayra Tena Age: 46 yrs Sex: Female : 1970 Arrival Date: 07/27/2016 Time: 13:03 Bed I5 / M5 Private MD: Kraen Montemayor Disposition: 07/27/16 15:40 Discharged to Home/Self Care. Impression: Urinary tract infection, site not specified, Fatty (change of) liver, not elsewhere classified. - Condition is Stable. - Discharge Instructions: Urinary Tract Infection, [id number]. - Prescriptions for Pyridium 200 mg Oral Tablet - take 1 tablet by ORAL route every 8 hours for 3 days; 9 tablet. Macrobid 100 mg Oral Capsule - take 100 milligram by ORAL route every 12 hours for 10 days; 20 capsule. Percocet 5- 325 mg Oral Tablet - take 1 tablet by ORAL route every 6 hours As needed MDD: 4 tabs; 10 tablet. - Medication Reconciliation, Local Pharmacy Hours form. - Follow up: Karen Montemayor; When: 1 - 2 days; Reason: Recheck today's complaints, Continuance of care. Follow up: Emergency Department; Reason: Worsening of conditions. - Problem is new. - Symptoms have improved. Historical: - Allergies: no known allergies; - Home Meds: 1. aspirin 81 mg Oral chew 1 tab once daily 2. metformin 500 mg Oral Tb24 2 tabs once daily 3. lisinopril 10 mg Oral tab 1 tab once daily - PMHx: CVA; psoriatic arthritis; TIA; Hypertension; Diabetes - NIDDM: controlled; - PSHx: LP shunt; Cervical Laminectomy; Appendectomy; Hysterectomy; Tubal ligation; ; - Social history: Smoking status: No barriers to communication noted, The patient speaks fluent Tajik. - Family history: Not pertinent. - : The pt / caregiver states he / she is not on anticoagulants. Home medication list is obtained from the patient. 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 3 in. (160.02 cm) (R); Pain 4/10; 15:34 BP 129 / 62; Pulse 75; Resp 20; Temp 97.3(O); Pulse Ox 100% on R/A; Pain 1/10; jml1 13:06 Body Mass Index 38.62 (98.88 kg, 160.02 cm) sar1 MDM: 13:31 UA Ordered. EDMS 13:31 Urine Culture Ordered. EDMS 14:24 UA Reviewed. ef1 14:32 NS 0.9% 1000 ml IV at bolus once ordered. ef1 14:32 ketorolac 30 mg IVP once ordered. ef1 14:32 IV Saline Lock ordered. ef1 14:32 Undress patient appropriately for examination ordered. ef1 14:32 morphine 4 mg IVP once ordered. ef1 14:34 Amylase Ordered. EDMS 14:34 Basic Metabolic Profile Ordered. EDMS 14:34 CBC with Diff Ordered. EDMS 14:34 Lipase Ordered. EDMS 14:34 Liver Profile Ordered. EDMS 14:34 CT ABD & PELVIS: No Contrast Ordered. EDMS 14:34 NOTHING BY MOUTH+DIET ordered. EDMS 15:33 Basic Metabolic Profile Reviewed. ef1 15:33 CBC with Diff Reviewed. ef1 15:33 Liver Profile Reviewed. ef1 15:33 Amylase Reviewed. ef1 15:33 Lipase Reviewed. ef1 15:33 CT ABD & PELVIS: No Contrast Reviewed. ef1 15:35 Nitrofurantoin 100 mg PO once ordered. ef1 15:35 Phenazopyridine 200 mg PO once ordered. ef1 07/28 05:49 T-Sheet-- Draft Copy was scanned into [email or web address] and attached to record. hs2 Administered Medications: 07/27 14:56 Drug: NS 0.9% 1000 ml [sodium chloride 0.9 % intravenous solution] Route: IV; Rate: hs1 bolus; Site: right antecubital; 14:56 Drug: ketorolac 30 mg [ketorolac 30 mg/mL (1 mL) injection solution (1 mL)] Route: IVP; hs1 Site: right antecubital; 14:56 Drug: morphine 4 mg [morphine 4 mg/mL intravenous cartridge (1 mL)] Route: IVP; Site: hs1 right antecubital; 15:44 Drug: Nitrofurantoin 100 mg [nitrofurantoin macrocrystal 50 mg capsule (2 caps)] Route: jmb PO; 15:44 Drug: Phenazopyridine 200 mg [phenazopyridine 100 mg tablet (2 tabs)] Route: PO; ina Signatures: Dispatcher [employer] Bin Pedro,RN RN po Rachelle Ferrari PA-C PA-C ef1 Jose Eduardo Teixeira RN RN jmb Hollie Milner, Reg Reg hs2 Carmelita Pena RN hs1 The chart was reviewed and I authenticate all verbal orders and agree with the evaluation and treatment provided.Attachments: 07/28 05:49 T-Sheet-- Draft Copy hs2 Chart Complete MTDD
--- NOTE | 2016-07-31 15:09 | EDDOCDS ---
Physician Documentation [facility] Name: Mayra Tena Age: 46 yrs Sex: Female : 1970 Arrival Date: 07/27/2016 Time: 13:03 Bed I5 / M5 Private MD: Karen Montemayor Disposition: 07/27/16 15:40 Discharged to Home/Self Care. Impression: Urinary tract infection, site not specified, Fatty (change of) liver, not elsewhere classified. - Condition is Stable. - Discharge Instructions: Urinary Tract Infection, [id number]-rk-Cems. - Prescriptions for Pyridium 200 mg Oral Tablet - take 1 tablet by ORAL route every 8 hours for 3 days; 9 tablet. Macrobid 100 mg Oral Capsule - take 100 milligram by ORAL route every 12 hours for 10 days; 20 capsule. Percocet 5- 325 mg Oral Tablet - take 1 tablet by ORAL route every 6 hours As needed MDD: 4 tabs; 10 tablet. - Medication Reconciliation, Local Pharmacy Hours form. - Follow up: Karen Montemayor; When: 1 - 2 days; Reason: Recheck today's complaints, Continuance of care. Follow up: Emergency Department; Reason: Worsening of conditions. - Problem is new. - Symptoms have improved. Historical: - Allergies: no known allergies; - Home Meds: 1. aspirin 81 mg Oral chew 1 tab once daily 2. metformin 500 mg Oral Tb24 2 tabs once daily 3. lisinopril 10 mg Oral tab 1 tab once daily - PMHx: CVA; psoriatic arthritis; TIA; Hypertension; Diabetes - NIDDM: controlled; - PSHx: LP shunt; Cervical Laminectomy; Appendectomy; Hysterectomy; Tubal ligation; ; - Social history: Smoking status: No barriers to communication noted, The patient speaks fluent Sami. - Family history: Not pertinent. - : The pt / caregiver states he / she is not on anticoagulants. Home medication list is obtained from the patient. 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 3 in. (160.02 cm) (R); Pain 4/10; 15:34 BP 129 / 62; Pulse 75; Resp 20; Temp 97.3(O); Pulse Ox 100% on R/A; Pain 1/10; jml1 13:06 Body Mass Index 38.62 (98.88 kg, 160.02 cm) sar1 MDM: 13:31 UA Ordered. EDMS 13:31 Urine Culture Ordered. EDMS 14:24 UA Reviewed. ef1 14:32 NS 0.9% 1000 ml IV at bolus once ordered. ef1 14:32 ketorolac 30 mg IVP once ordered. ef1 14:32 IV Saline Lock ordered. ef1 14:32 Undress patient appropriately for examination ordered. ef1 14:32 morphine 4 mg IVP once ordered. ef1 14:34 Amylase Ordered. EDMS 14:34 Basic Metabolic Profile Ordered. EDMS 14:34 CBC with Diff Ordered. EDMS 14:34 Lipase Ordered. EDMS 14:34 Liver Profile Ordered. EDMS 14:34 CT ABD & PELVIS: No Contrast Ordered. EDMS 14:34 NOTHING BY MOUTH+DIET ordered. EDMS 15:33 Basic Metabolic Profile Reviewed. ef1 15:33 CBC with Diff Reviewed. ef1 15:33 Liver Profile Reviewed. ef1 15:33 Amylase Reviewed. ef1 15:33 Lipase Reviewed. ef1 15:33 CT ABD & PELVIS: No Contrast Reviewed. ef1 15:35 Nitrofurantoin 100 mg PO once ordered. ef1 15:35 Phenazopyridine 200 mg PO once ordered. ef1 07/28 05:49 T-Sheet-- Draft Copy was scanned into [employer] and attached to record. hs2 Administered Medications: 07/27 14:56 Drug: NS 0.9% 1000 ml [sodium chloride 0.9 % intravenous solution] Route: IV; Rate: hs1 bolus; Site: right antecubital; 14:56 Drug: ketorolac 30 mg [ketorolac 30 mg/mL (1 mL) injection solution (1 mL)] Route: IVP; hs1 Site: right antecubital; 14:56 Drug: morphine 4 mg [morphine 4 mg/mL intravenous cartridge (1 mL)] Route: IVP; Site: hs1 right antecubital; 15:44 Drug: Nitrofurantoin 100 mg [nitrofurantoin macrocrystal 50 mg capsule (2 caps)] Route: jmb PO; 15:44 Drug: Phenazopyridine 200 mg [phenazopyridine 100 mg tablet (2 tabs)] Route: PO; ina Signatures: Dispatcher [employer] Bin Pedro,RN RN po Rachelle Ferrari PA-C PA-C ef1 Jose Eduardo Teixeira RN RN jmb Hollie Milner, Reg Reg hs2 Carmelita Pena RN hs1 The chart was reviewed and I authenticate all verbal orders and agree with the evaluation and treatment provided.Attachments: 07/28 05:49 T-Sheet-- Draft Copy hs2 MTDD
--- NOTE | 2016-07-31 15:09 | EDDOCDS ---
Nurse's Notes [facility] Name: Mayra Tena Age: 46 yrs Sex: Female : 1970 Arrival Date: 07/27/2016 Time: 13:03 Bed I5 / M5 Private MD: Karen Montemayor Diagnosis: Urinary tract infection, site not specified;Fatty (change of) liver, not elsewhere classified Presentation: 07/27 13:10 Presenting complaint: Patient states: burning with urination, frequency, cloudy urine, po pressure and lower back pain. Adult Sepsis Screening: The patient does not have new or worsening altered mentation. Patient's respiratory rate is less than 22. Systolic blood pressure is greater than 100. Patient has a qSOFA score of 0- Negative Sepsis Screen. Suicide/Homicide risk assessment- the patient denies having any suicidal and/or homicidal ideations and does not present with any other emotional, behavioral or mental health complaints. 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 Transition of care: patient was not received from another setting of care. 13:10 Acuity: TESSA Level 4 po 13:10 Method Of Arrival: Walkin/Carried/Asstd po Triage Assessment: 13:16 General: Appears in no apparent distress, Behavior is appropriate for age, cooperative. po Pain: Location: low back area and suprapubic area Pain currently is 4 out of 10 on a pain scale. Quality of pain is described as pressure, Is continuous. HIV screening NA for this visit Offered previously. Neurological: Level of Consciousness is awake, alert, Oriented to person, place, time. Respiratory: Airway is patent Respiratory effort is even, unlabored. : Reports burning with urination urinary frequency. Derm: Skin is pink, warm & dry. 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 aspirin 81 mg Oral chew 1 tab once daily 2. metformin 500 mg Oral Tb24 2 tabs once daily 3. lisinopril 10 mg Oral tab 1 tab once daily - PMHx: CVA; psoriatic arthritis; TIA; Hypertension; Diabetes - NIDDM: controlled; - PSHx: LP shunt; Cervical Laminectomy; Appendectomy; Hysterectomy; Tubal ligation; ; - Social history: Smoking status: No barriers to communication noted, The patient speaks fluent Azerbaijani. - Family history: Not pertinent. - : The pt / caregiver states he / she is not on anticoagulants. Home medication list is obtained from the patient. 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 Screenin:58 Screening information is obtained from the patient. Fall risk: No risks identified. hs1 Assistance ADL's: requires no assistance with activities of daily living. Abuse/DV Screen: The patient / caregiver reports he/she is: not in a situation that causes fear, pain or injury. Nutritional screening: No deficits noted. Advance Directives: There is no active DNR order. home support is adequate. Assessment: 14:58 General: Appears in no apparent distress, Behavior is appropriate for age, cooperative. hs1 Pain: Location: pelvis. Cardiovascular: No deficits noted. GI: Reports nausea. : Reports burning with urination urinary frequency. Derm: Skin is pink, warm & dry. normal. 15:24 Reassessment: Patient appears in no apparent distress at this time. Patient states hs1 feeling better. Patient states symptoms have improved. Pain: Location: pelvis Pain currently is 4 out of 10 on a pain scale. Quality of pain is described as burning. 15:45 General: Patient instructed on discharge instructions. Patient asked if there were any [facility] questions regarding discharge, patient stated no. IV discontinued per hospital policy. Patient signed discharge instructions. Patient discharged in stable condition. . Vital Signs: 13:06 BP 122 / 67; Pulse 85; Resp 18; Temp 97.4(O); Pulse Ox 99% on R/A; Weight 98.88 kg (R); sar1 Height 5 ft. 3 in. (160.02 cm) (R); Pain 4/10; 15:34 BP 129 / 62; Pulse 75; Resp 20; Temp 97.3(O); Pulse Ox 100% on R/A; Pain 1/10; jml1 13:06 Body Mass Index 38.62 (98.88 kg, 160.02 cm) [facility] Vitals: 13:06 Log In Time: July 27, 2016 at 13:06. [facility] ED Course: 13:04 Patient visited by Teri Pérez, Book Retailer. sar1 13:04 Patient moved to Waiting sar 13:06 Karen Montemayor MD is Private Physician. sar1 13:07 Patient moved to Pre RCE sar1 13:12 Triage Initiated po 13:16 Arm band placed on right wrist. Patient placed in waiting room. po 13:18 Patient visited by Bin Hernandez RN. po 13:49 Patient moved to Triage 3 rn1 13:58 Urine Culture Sent. rn1 13:58 UA Sent. rn1 14:17 Rachelle Ferrari PA-C [facility]. ef1 14:17 Miya Cruz MD is Attending Physician. ef1 14:19 Patient visited by Rachelle Ferrari PA-C. ef1 14:33 Mary Rodriguez, JAMAAL is Primary Nurse. ms18 14:33 Patient moved to I5 / M5 ms18 14:50 Inserted saline lock: 20 gauge in right antecubital area and blood collected. The hs1 patient tolerated the procedure well. 14:56 Amylase Sent. hs1 14:56 Basic Metabolic Profile Sent. hs1 14:56 CBC with Diff Sent. hs1 14:56 Lipase Sent. hs1 14:57 Liver Profile Sent. hs1 14:58 Patient visited by Carmelita Pena RN. hs1 15:31 CT ABD & PELVIS: No Contrast Returned. EDMS 15:33 Patient visited by Rachelle Ferrari PA-C. ef1 15:34 Patient visited by Zeeshan Jo. jml1 15:40 Karen Montemayor MD is Referral Physician. ef1 15:45 The patient / caregiver is instructed regarding the plan of care and ED course. jmb 15:45 Discontinued lock intact, bleeding controlled, pressure dressing applied, No jmb redness/swelling at site. No procedures done that require assistance. 07/28 05:49 T-Sheet-- Draft Copy was scanned into [employer] and attached to record. hs2 Administered Medications: 07/27 14:56 Drug: NS 0.9% 1000 ml [sodium chloride 0.9 % intravenous solution] Route: IV; Rate: hs1 bolus; Site: right antecubital; 14:56 Drug: ketorolac 30 mg [ketorolac 30 mg/mL (1 mL) injection solution (1 mL)] Route: IVP; hs1 Site: right antecubital; 14:56 Drug: morphine 4 mg [morphine 4 mg/mL intravenous cartridge (1 mL)] Route: IVP; Site: hs1 right antecubital; 15:44 Drug: Nitrofurantoin 100 mg [nitrofurantoin macrocrystal 50 mg capsule (2 caps)] Route: jmb PO; 15:44 Drug: Phenazopyridine 200 mg [phenazopyridine 100 mg tablet (2 tabs)] Route: PO; [facility] Order Results: Lab Order: UA; SPEC'M 07/27/16 13:55 Test: APPEARANCE, URINE; Value: CLEAR; Range: CLEAR; Status: F Test: COLOR, URINE; Value: COLORLESS; Range: YELLOW; Status: F Test: PH,URINE; Value: 6.0; Range: 5.0-9.0; Units: UNITS; Status: F Test: SPECIFIC GRAVITY URINE AUTO; Value: 1.000; Range: 1.002-1.035; Abnormal: Below low normal; Status: F Test: PROTEIN, URINE AUTO; Value: NEGATIVE; Range: NEGATIVE; Units: mg/dL; Status: F Test: GLUCOSE, URINE (UA) AUTO; Value: NEGATIVE; Range: NEGATIVE; Units: mg/dL; Status: F Test: KETONE, URINE AUTO; Value: NEGATIVE; Range: NEGATIVE; Units: mg/dL; Status: F Test: UROBILINOGEN, URINE AUTO; Value: 0.2; Range: 0.0-2.0; Units: mg/dL; Status: F Test: BILIRUBIN, URINE AUTO; Value: NEGATIVE; Range: NEGATIVE; Status: F Test: NITRITE, URINE AUTO; Value: NEGATIVE; Range: NEGATIVE; Status: F Test: LEUKOCYTE ESTERASE, URINE AUTO; Value: 3+; Range: NEGATIVE; Abnormal: Above high normal; Status: F Test: BLOOD, URINE BLOOD; Value: 3+; Range: NEGATIVE; Abnormal: Above high normal; Status: F Test: WBC, URINE AUTO; Value: 7; Range: 0-3; Abnormal: Above high normal; Units: /HPF; Status: F Test: RBC, URINE AUTO; Value: 0; Range: 0-3; Units: /HPF; Status: F Test: BACTERIA, URINE AUTO; Value: NEGATIVE; Range: NEGATIVE; Status: F Test: SQUAMOUS EPITHELIAL CELL UR AU; Value: 0; Range: 0-6; Units: /HPF; Status: F Test: HYALINE CAST, URINE AUTO; Value: 0; Range: 0-1; Units: /LPF; Status: F Lab Order: Urine Culture; SPEC'M 07/27/16 13:55 Test: URINE CULTURE; Value: ORGANISM 1: ESCHERICHIA COLI; Status: F Test: URINE CULTURE; Value: ESCHERICHIA COLI; Status: F Test: URINE CULTURE; Value: COLONY COUNT CFU/ml 50,000; Status: F Test: URINE CULTURE; Value: GRAM NEG SENSI - VITEK 80; Status: F Test: URINE CULTURE; Value: Method: VIT2; Status: F Test: URINE CULTURE; Value: EXTD BRD SPCTRM BETA LACTAMASE -; Status: F Test: URINE CULTURE; Value: TRIMETHOPRIM/SULFAMETHOXAZOLE <=20 S; Status: F Test: URINE CULTURE; Value: AMPICILLIN 4 S; Status: F Test: URINE CULTURE; Value: GENTAMICIN <=1 S; Status: F Test: URINE CULTURE; Value: NITROFURANTOIN <=16 S; Status: F Test: URINE CULTURE; Value: CEFAZOLIN <=4 S; Status: F Test: URINE CULTURE; Value: LEVOFLOXACIN <=0.12 S; Status: F Test: URINE CULTURE; Value: TOBRAMYCIN <=1 S; Status: F Test: URINE CULTURE; Value: CEFTRIAXONE <=1 S; Status: F Test: URINE CULTURE; Value: CEFTAZIDIME <=1 S; Status: F Test: URINE CULTURE; Value: AMPICILLIN/SULBACTAM <=2 S; Status: F Test: URINE CULTURE; Value: PIPERACILLIN/TAZOBACTAM <=4 S; Status: F Test: URINE CULTURE; Value: AZTREONAM <=1 S; Status: F Test: URINE CULTURE; Value: ERTAPENEM <=0.5 S; Status: F Test: URINE CULTURE; Value: MEROPENEM <=0.25 S; Status: F Test: URINE CULTURE; Value: TIGECYCLINE <=0.5 S; Status: F Test: URINE CULTURE; Value: CEFEPIME <=1 S; Status: F Lab Order: Amylase; SPEC'M 07/27/16 14:53 Test: AMYLASE; Value: 25; Range: 25-115; Units: U/L; Status: F Lab Order: Basic Metabolic Profile; SPEC'M 07/27/16 14:53 Test: GLUCOSE, FASTING; Value: 92; Range: 70-105; Units: MG/DL; Status: F Test: BLOOD UREA NITROGEN; Value: 10; Range: 7-18; Units: MG/DL; Status: F Test: CREATININE FOR GFR; Value: 0.75; Range: 0.55-1.02; Units: MG/DL; Status: F Test: GLOMERULAR FILTRATION RATE; Value: > 60.0; Range: >58; Status: F Test: SODIUM LEVEL; Value: 139; Range: 136-145; Units: MEQ/L; Status: F Test: POTASSIUM SERUM; Value: 4.1; Range: 3.5-5.1; Units: MEQ/L; Status: F Test: CHLORIDE LEVEL; Value: 103; Range: 98-107; Units: MEQ/L; Status: F Test: CARBON DIOXIDE LEVEL; Value: 29; Range: 21-32; Units: MEQ/L; Status: F Test: ANION GAP; Value: 7; Range: 8-16; Abnormal: Below low normal; Units: MEQ/L; Status: F Test: CALCIUM LEVEL; Value: 9.0; Range: 8.5-10.1; Units: MG/DL; Status: F Test Note: ; Units are mL/min/1.73 m2 Chronic Kidney Disease Staging per NKF: Stage I & II GFR >=60 Normal to Mildly Decreased Stage III GFR 30-59 Moderately Decreased Stage IV GFR 15-29 Severely Decreased Stage V GFR <15 Very Little GFR Left ESRD GFR <15 on SUPERVISOR GRIPS Lab Order: CBC with Diff; SPEC'M 07/27/16 14:53 Test: WHITE BLOOD COUNT; Value: 15.1; Range: 4.0-10.0; Abnormal: Above high normal; Units: K/mm3; Status: F Test: RED BLOOD COUNT; Value: 4.87; Range: 4.00-5.40; Units: M/mm3; Status: F Test: HEMOGLOBIN; Value: 14.0; Range: 12.0-16.0; Units: g/dl; Status: F Test: HEMATOCRIT; Value: 42.7; Range: 36.0-47.0; Units: %; Status: F Test: MEAN CORPUSCULAR VOLUME; Value: 87.6; Range: 80.0-96.0; Units: fl; Status: F Test: MEAN CORPUSCULAR HEMOGLOBIN; Value: 28.7; Range: 27.0-33.0; Units: pg; Status: F Test: MEAN CORPUSCULAR HGB CONC; Value: 32.8; Range: 32.0-36.5; Units: g/dl; Status: F Test: RED CELL DISTRIBUTION WIDTH; Value: 13.4; Range: 11.5-14.5; Units: %; Status: F Test: PLATELET COUNT, AUTOMATED; Value: 314; Range: 150-450; Units: k/mm3; Status: F Test: NEUTROPHILS %; Value: 83.2; Range: 36.0-66.0; Abnormal: Above high normal; Units: %; Status: F Test: LYMPH %; Value: 11.0; Range: 24.0-44.0; Abnormal: Below low normal; Units: %; Status: F Test: MONO %; Value: 4.0; Range: 0.0-5.0; Units: %; Status: F Test: EOS %; Value: 0.7; Range: 0.0-3.0; Units: %; Status: F Test: BASO %; Value: 0.3; Range: 0.0-1.0; Units: %; Status: F Test: LARGE UNSTAINED CELL %; Value: 0.9; Range: 0.0-4.0; Units: %; Status: F Test: NEUTROPHILS #; Value: 12.5; Range: 1.8-7.7; Abnormal: Above high normal; Units: K/mm3; Status: F Test: LYMPH #; Value: 1.7; Range: 1.5-4.5; Units: K/mm3; Status: F Test: MONO #; Value: 0.6; Range: 0.0-0.8; Units: K/mm3; Status: F Test: EOS #; Value: 0.1; Range: 0.0-0.50; Units: K/mm3; Status: F Test: BASO #; Value: 0.0; Range: 0.0-0.2; Units: K/mm3; Status: F Test: LARGE UNSTAINED CELL #; Value: 0.1; Range: 0.0-0.4; Units: K/mm3; Status: F Lab Order: Lipase; SPEC'M 07/27/16 14:53 Test: LIPASE; Value: 76; Range: 73-393; Units: U/L; Status: F Lab Order: Liver Profile; SPEC'M 07/27/16 14:53 Test: AST/SGOT; Value: 14; Range: 15-37; Abnormal: Below low normal; Units: U/L; Status: F Test: ALT/SGPT; Value: 33; Range: 12-78; Units: U/L; Status: F Test: ALKALINE PHOSPHATASE; Value: 116; Range: 45-117; Units: U/L; Status: F Test: BILIRUBIN,TOTAL; Value: 0.3; Range: 0.2-1.0; Units: MG/DL; Status: F Test: BILIRUBIN,DIRECT; Value: < 0.1; Range: 0.0-0.2; Units: MG/DL; Status: F Test: TOTAL PROTEIN; Value: 7.9; Range: 6.4-8.2; Units: GM/DL; Status: F Test: ALBUMIN; Value: 3.6; Range: 3.2-5.2; Units: GM/DL; Status: F Test: ALBUMIN/GLOBULIN RATIO; Value: 0.84; Range: 1.00-1.93; Abnormal: Below low normal; Status: F Radiology Order: CT ABD & PELVIS: No Contrast Test: CT ABD & PELVIS: No Contrast REASON FOR EXAMINATION: Renal colic; Clinical: Renal colic.; ; Comparison: 07/10/2014; ; Findings:; Lung bases clear. Visualized heart and pericardium normal.; ; Fatty infiltration to the liver noted. Spleen, pancreas, gallbladder, bilateral; adrenal glands and kidneys are normal for noncontrast evaluation. The enteric; system is without obstruction or acute inflammatory process. Pelvis demonstrates; normal bladder and evidence for prior hysterectomy. Small left ovarian cyst is; likely physiologic. An epidural catheter at the level of the L3 extends through; the subcutaneous tissues into the abdomen. No pelvic fluid or ascites. No; obvious adenopathy. Abdominal aorta without aneurysm. Skeletal structures; without focal osseous abnormality.; ; Impression:; No acute intra-abdominal or pelvic pathology appreciated.; Fatty infiltration to the liver.; Chronic stable changes as described above.; ; ; Signed by; Tristan Christensen MD 07/27/2016 02:54 P; Outcome: 15:40 Discharge ordered by Provider. ef1 15:45 Discharge Assessment: Patient awake, alert and oriented x 3. No cognitive and/or jmb functional deficits noted. Patient verbalized understanding of disposition instructions. Patient awake and alert. obeys commands, Oriented to person, place and time. Patient verbalized understanding of disposition instructions. Patient has no functional deficits. patient administered narcotics - yes. Pt provided with safe discharge. The following High Risk Discharge criteria are identified: None. Discharged to home ambulatory, with significant other. Condition: stable. Discharge instructions given to patient, Instructed on discharge instructions, follow up and referral plans. medication usage, Demonstrated understanding of instructions, medications, Pt was receptive of discharge instructions/ teaching. No special radiology studies were completed. Property sent home with patient. 15:49 Patient left the ED. ina Addendum: 07/31/2016 15:07 Narrative: Urine culture results reviewed by MINA Umana and no changes made. [facility] Signatures: Dispatcher [employer] EDNJ Bin HernandezRN Samanta Hernandez RN RN [facility] Rachelle Ferrari, PA-C PA-C ef1 Carmelita Pena RN RN hs1 Zeeshan Jo jml1 Jose Eduardo TeixeiraRN RN emilyb Brunilda FoxRN RN ms18 Teri Pérez, Book Retailer Unit sar1 Christophe Luevano rn1 Hollie Milner, Reg Reg hs2 Chart Complete MTDD
--- NOTE | 2016-07-31 15:09 | EDDOCDS ---
Nurse's Notes [facility] Name: Mayra Tena Age: 46 yrs Sex: Female : 1970 Arrival Date: 07/27/2016 Time: 13:03 Bed I5 / M5 Private MD: Karen Montemayor Diagnosis: Urinary tract infection, site not specified;Fatty (change of) liver, not elsewhere classified Presentation: 07/27 13:10 Presenting complaint: Patient states: burning with urination, frequency, cloudy urine, po pressure and lower back pain. Adult Sepsis Screening: The patient does not have new or worsening altered mentation. Patient's respiratory rate is less than 22. Systolic blood pressure is greater than 100. Patient has a qSOFA score of 0- Negative Sepsis Screen. Suicide/Homicide risk assessment- the patient denies having any suicidal and/or homicidal ideations and does not present with any other emotional, behavioral or mental health complaints. Status: Patient is not a agency service representative or dependent. Transition of care: patient was not received from another setting of care. 13:10 Acuity: TESSA Level 4 po 13:10 Method Of Arrival: Walkin/Carried/Asstd po Triage Assessment: 13:16 General: Appears in no apparent distress, Behavior is appropriate for age, cooperative. po Pain: Location: low back area and suprapubic area Pain currently is 4 out of 10 on a pain scale. Quality of pain is described as pressure, Is continuous. HIV screening NA for this visit Offered previously. Neurological: Level of Consciousness is awake, alert, Oriented to person, place, time. Respiratory: Airway is patent Respiratory effort is even, unlabored. : Reports burning with urination urinary frequency. Derm: Skin is pink, warm & dry. 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 aspirin 81 mg Oral chew 1 tab once daily 2. metformin 500 mg Oral Tb24 2 tabs once daily 3. lisinopril 10 mg Oral tab 1 tab once daily - PMHx: CVA; psoriatic arthritis; TIA; Hypertension; Diabetes - NIDDM: controlled; - PSHx: LP shunt; Cervical Laminectomy; Appendectomy; Hysterectomy; Tubal ligation; ; - Social history: Smoking status: No barriers to communication noted, The patient speaks fluent Bangladeshi. - Family history: Not pertinent. - : The pt / caregiver states he / she is not on anticoagulants. Home medication list is obtained from the patient. 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 Screenin:58 Screening information is obtained from the patient. Fall risk: No risks identified. hs1 Assistance ADL's: requires no assistance with activities of daily living. Abuse/DV Screen: The patient / caregiver reports he/she is: not in a situation that causes fear, pain or injury. Nutritional screening: No deficits noted. Advance Directives: There is no active DNR order. home support is adequate. Assessment: 14:58 General: Appears in no apparent distress, Behavior is appropriate for age, cooperative. hs1 Pain: Location: pelvis. Cardiovascular: No deficits noted. GI: Reports nausea. : Reports burning with urination urinary frequency. Derm: Skin is pink, warm & dry. normal. 15:24 Reassessment: Patient appears in no apparent distress at this time. Patient states hs1 feeling better. Patient states symptoms have improved. Pain: Location: pelvis Pain currently is 4 out of 10 on a pain scale. Quality of pain is described as burning. 15:45 General: Patient instructed on discharge instructions. Patient asked if there were any [facility] questions regarding discharge, patient stated no. IV discontinued per hospital policy. Patient signed discharge instructions. Patient discharged in stable condition. . Vital Signs: 13:06 BP 122 / 67; Pulse 85; Resp 18; Temp 97.4(O); Pulse Ox 99% on R/A; Weight 98.88 kg (R); sar1 Height 5 ft. 3 in. (160.02 cm) (R); Pain 4/10; 15:34 BP 129 / 62; Pulse 75; Resp 20; Temp 97.3(O); Pulse Ox 100% on R/A; Pain 1/10; jml1 13:06 Body Mass Index 38.62 (98.88 kg, 160.02 cm) [facility] Vitals: 13:06 Log In Time: July 27, 2016 at 13:06. [facility] ED Course: 13:04 Patient visited by Teri Pérez, Letter Of Credit Document Examiner. sar1 13:04 Patient moved to Waiting sar 13:06 Karen Montemayor MD is Private Physician. sar1 13:07 Patient moved to Pre RCE sar1 13:12 Triage Initiated po 13:16 Arm band placed on right wrist. Patient placed in waiting room. po 13:18 Patient visited by Bin Hernandez RN. po 13:49 Patient moved to Triage 3 rn1 13:58 Urine Culture Sent. rn1 13:58 UA Sent. rn1 14:17 Rachelle Ferrari [facility]C [facility]. ef1 14:17 Miya Cruz MD is Attending Physician. ef1 14:19 Patient visited by Rachelle Ferrari PA-C. ef1 14:33 Mary Rodriguez, JAMAAL is Primary Nurse. ms18 14:33 Patient moved to I5 / M5 ms18 14:50 Inserted saline lock: 20 gauge in right antecubital area and blood collected. The hs1 patient tolerated the procedure well. 14:56 Amylase Sent. hs1 14:56 Basic Metabolic Profile Sent. hs1 14:56 CBC with Diff Sent. hs1 14:56 Lipase Sent. hs1 14:57 Liver Profile Sent. hs1 14:58 Patient visited by Carmelita Pena RN. hs1 15:31 CT ABD & PELVIS: No Contrast Returned. EDMS 15:33 Patient visited by Rachelle Ferrari PA-C. ef1 15:34 Patient visited by Zeeshan Jo. jml1 15:40 Karen Montemayor MD is Referral Physician. ef1 15:45 The patient / caregiver is instructed regarding the plan of care and ED course. jmb 15:45 Discontinued lock intact, bleeding controlled, pressure dressing applied, No jmb redness/swelling at site. No procedures done that require assistance. 07/28 05:49 T-Sheet-- Draft Copy was scanned into [facility] and attached to record. hs2 Administered Medications: 07/27 14:56 Drug: NS 0.9% 1000 ml [sodium chloride 0.9 % intravenous solution] Route: IV; Rate: hs1 bolus; Site: right antecubital; 14:56 Drug: ketorolac 30 mg [ketorolac 30 mg/mL (1 mL) injection solution (1 mL)] Route: IVP; hs1 Site: right antecubital; 14:56 Drug: morphine 4 mg [morphine 4 mg/mL intravenous cartridge (1 mL)] Route: IVP; Site: hs1 right antecubital; 15:44 Drug: Nitrofurantoin 100 mg [nitrofurantoin macrocrystal 50 mg capsule (2 caps)] Route: jmb PO; 15:44 Drug: Phenazopyridine 200 mg [phenazopyridine 100 mg tablet (2 tabs)] Route: PO; [facility] Order Results: Lab Order: UA; SPEC'M 07/27/16 13:55 Test: APPEARANCE, URINE; Value: CLEAR; Range: CLEAR; Status: F Test: COLOR, URINE; Value: COLORLESS; Range: YELLOW; Status: F Test: PH,URINE; Value: 6.0; Range: 5.0-9.0; Units: UNITS; Status: F Test: SPECIFIC GRAVITY URINE AUTO; Value: 1.000; Range: 1.002-1.035; Abnormal: Below low normal; Status: F Test: PROTEIN, URINE AUTO; Value: NEGATIVE; Range: NEGATIVE; Units: mg/dL; Status: F Test: GLUCOSE, URINE (UA) AUTO; Value: NEGATIVE; Range: NEGATIVE; Units: mg/dL; Status: F Test: KETONE, URINE AUTO; Value: NEGATIVE; Range: NEGATIVE; Units: mg/dL; Status: F Test: UROBILINOGEN, URINE AUTO; Value: 0.2; Range: 0.0-2.0; Units: mg/dL; Status: F Test: BILIRUBIN, URINE AUTO; Value: NEGATIVE; Range: NEGATIVE; Status: F Test: NITRITE, URINE AUTO; Value: NEGATIVE; Range: NEGATIVE; Status: F Test: LEUKOCYTE ESTERASE, URINE AUTO; Value: 3+; Range: NEGATIVE; Abnormal: Above high normal; Status: F Test: BLOOD, URINE BLOOD; Value: 3+; Range: NEGATIVE; Abnormal: Above high normal; Status: F Test: WBC, URINE AUTO; Value: 7; Range: 0-3; Abnormal: Above high normal; Units: /HPF; Status: F Test: RBC, URINE AUTO; Value: 0; Range: 0-3; Units: /HPF; Status: F Test: BACTERIA, URINE AUTO; Value: NEGATIVE; Range: NEGATIVE; Status: F Test: SQUAMOUS EPITHELIAL CELL UR AU; Value: 0; Range: 0-6; Units: /HPF; Status: F Test: HYALINE CAST, URINE AUTO; Value: 0; Range: 0-1; Units: /LPF; Status: F Lab Order: Urine Culture; SPEC'M 07/27/16 13:55 Test: URINE CULTURE; Value: ORGANISM 1: ESCHERICHIA COLI; Status: F Test: URINE CULTURE; Value: ESCHERICHIA COLI; Status: F Test: URINE CULTURE; Value: COLONY COUNT CFU/ml 50,000; Status: F Test: URINE CULTURE; Value: GRAM NEG SENSI - VITEK 80; Status: F Test: URINE CULTURE; Value: Method: VIT2; Status: F Test: URINE CULTURE; Value: EXTD BRD SPCTRM BETA LACTAMASE -; Status: F Test: URINE CULTURE; Value: TRIMETHOPRIM/SULFAMETHOXAZOLE <=20 S; Status: F Test: URINE CULTURE; Value: AMPICILLIN 4 S; Status: F Test: URINE CULTURE; Value: GENTAMICIN <=1 S; Status: F Test: URINE CULTURE; Value: NITROFURANTOIN <=16 S; Status: F Test: URINE CULTURE; Value: CEFAZOLIN <=4 S; Status: F Test: URINE CULTURE; Value: LEVOFLOXACIN <=0.12 S; Status: F Test: URINE CULTURE; Value: TOBRAMYCIN <=1 S; Status: F Test: URINE CULTURE; Value: CEFTRIAXONE <=1 S; Status: F Test: URINE CULTURE; Value: CEFTAZIDIME <=1 S; Status: F Test: URINE CULTURE; Value: AMPICILLIN/SULBACTAM <=2 S; Status: F Test: URINE CULTURE; Value: PIPERACILLIN/TAZOBACTAM <=4 S; Status: F Test: URINE CULTURE; Value: AZTREONAM <=1 S; Status: F Test: URINE CULTURE; Value: ERTAPENEM <=0.5 S; Status: F Test: URINE CULTURE; Value: MEROPENEM <=0.25 S; Status: F Test: URINE CULTURE; Value: TIGECYCLINE <=0.5 S; Status: F Test: URINE CULTURE; Value: CEFEPIME <=1 S; Status: F Lab Order: Amylase; SPEC'M 07/27/16 14:53 Test: AMYLASE; Value: 25; Range: 25-115; Units: U/L; Status: F Lab Order: Basic Metabolic Profile; SPEC'M 07/27/16 14:53 Test: GLUCOSE, FASTING; Value: 92; Range: 70-105; Units: MG/DL; Status: F Test: BLOOD UREA NITROGEN; Value: 10; Range: 7-18; Units: MG/DL; Status: F Test: CREATININE FOR GFR; Value: 0.75; Range: 0.55-1.02; Units: MG/DL; Status: F Test: GLOMERULAR FILTRATION RATE; Value: > 60.0; Range: >58; Status: F Test: SODIUM LEVEL; Value: 139; Range: 136-145; Units: MEQ/L; Status: F Test: POTASSIUM SERUM; Value: 4.1; Range: 3.5-5.1; Units: MEQ/L; Status: F Test: CHLORIDE LEVEL; Value: 103; Range: 98-107; Units: MEQ/L; Status: F Test: CARBON DIOXIDE LEVEL; Value: 29; Range: 21-32; Units: MEQ/L; Status: F Test: ANION GAP; Value: 7; Range: 8-16; Abnormal: Below low normal; Units: MEQ/L; Status: F Test: CALCIUM LEVEL; Value: 9.0; Range: 8.5-10.1; Units: MG/DL; Status: F Test Note: ; Units are mL/min/1.73 m2 Chronic Kidney Disease Staging per NKF: Stage I & II GFR >=60 Normal to Mildly Decreased Stage III GFR 30-59 Moderately Decreased Stage IV GFR 15-29 Severely Decreased Stage V GFR <15 Very Little GFR Left ESRD GFR <15 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 Lab Order: CBC with Diff; SPEC'M 07/27/16 14:53 Test: WHITE BLOOD COUNT; Value: 15.1; Range: 4.0-10.0; Abnormal: Above high normal; Units: K/mm3; Status: F Test: RED BLOOD COUNT; Value: 4.87; Range: 4.00-5.40; Units: M/mm3; Status: F Test: HEMOGLOBIN; Value: 14.0; Range: 12.0-16.0; Units: g/dl; Status: F Test: HEMATOCRIT; Value: 42.7; Range: 36.0-47.0; Units: %; Status: F Test: MEAN CORPUSCULAR VOLUME; Value: 87.6; Range: 80.0-96.0; Units: fl; Status: F Test: MEAN CORPUSCULAR HEMOGLOBIN; Value: 28.7; Range: 27.0-33.0; Units: pg; Status: F Test: MEAN CORPUSCULAR HGB CONC; Value: 32.8; Range: 32.0-36.5; Units: g/dl; Status: F Test: RED CELL DISTRIBUTION WIDTH; Value: 13.4; Range: 11.5-14.5; Units: %; Status: F Test: PLATELET COUNT, AUTOMATED; Value: 314; Range: 150-450; Units: k/mm3; Status: F Test: NEUTROPHILS %; Value: 83.2; Range: 36.0-66.0; Abnormal: Above high normal; Units: %; Status: F Test: LYMPH %; Value: 11.0; Range: 24.0-44.0; Abnormal: Below low normal; Units: %; Status: F Test: MONO %; Value: 4.0; Range: 0.0-5.0; Units: %; Status: F Test: EOS %; Value: 0.7; Range: 0.0-3.0; Units: %; Status: F Test: BASO %; Value: 0.3; Range: 0.0-1.0; Units: %; Status: F Test: LARGE UNSTAINED CELL %; Value: 0.9; Range: 0.0-4.0; Units: %; Status: F Test: NEUTROPHILS #; Value: 12.5; Range: 1.8-7.7; Abnormal: Above high normal; Units: K/mm3; Status: F Test: LYMPH #; Value: 1.7; Range: 1.5-4.5; Units: K/mm3; Status: F Test: MONO #; Value: 0.6; Range: 0.0-0.8; Units: K/mm3; Status: F Test: EOS #; Value: 0.1; Range: 0.0-0.50; Units: K/mm3; Status: F Test: BASO #; Value: 0.0; Range: 0.0-0.2; Units: K/mm3; Status: F Test: LARGE UNSTAINED CELL #; Value: 0.1; Range: 0.0-0.4; Units: K/mm3; Status: F Lab Order: Lipase; SPEC'M 07/27/16 14:53 Test: LIPASE; Value: 76; Range: 73-393; Units: U/L; Status: F Lab Order: Liver Profile; SPEC'M 07/27/16 14:53 Test: AST/SGOT; Value: 14; Range: 15-37; Abnormal: Below low normal; Units: U/L; Status: F Test: ALT/SGPT; Value: 33; Range: 12-78; Units: U/L; Status: F Test: ALKALINE PHOSPHATASE; Value: 116; Range: 45-117; Units: U/L; Status: F Test: BILIRUBIN,TOTAL; Value: 0.3; Range: 0.2-1.0; Units: MG/DL; Status: F Test: BILIRUBIN,DIRECT; Value: < 0.1; Range: 0.0-0.2; Units: MG/DL; Status: F Test: TOTAL PROTEIN; Value: 7.9; Range: 6.4-8.2; Units: GM/DL; Status: F Test: ALBUMIN; Value: 3.6; Range: 3.2-5.2; Units: GM/DL; Status: F Test: ALBUMIN/GLOBULIN RATIO; Value: 0.84; Range: 1.00-1.93; Abnormal: Below low normal; Status: F Radiology Order: CT ABD & PELVIS: No Contrast Test: CT ABD & PELVIS: No Contrast REASON FOR EXAMINATION: Renal colic; Clinical: Renal colic.; ; Comparison: 07/10/2014; ; Findings:; Lung bases clear. Visualized heart and pericardium normal.; ; Fatty infiltration to the liver noted. Spleen, pancreas, gallbladder, bilateral; adrenal glands and kidneys are normal for noncontrast evaluation. The enteric; system is without obstruction or acute inflammatory process. Pelvis demonstrates; normal bladder and evidence for prior hysterectomy. Small left ovarian cyst is; likely physiologic. An epidural catheter at the level of the L3 extends through; the subcutaneous tissues into the abdomen. No pelvic fluid or ascites. No; obvious adenopathy. Abdominal aorta without aneurysm. Skeletal structures; without focal osseous abnormality.; ; Impression:; No acute intra-abdominal or pelvic pathology appreciated.; Fatty infiltration to the liver.; Chronic stable changes as described above.; ; ; Signed by; Tristan Christensen MD 07/27/2016 02:54 P; Outcome: 15:40 Discharge ordered by Provider. ef1 15:45 Discharge Assessment: Patient awake, alert and oriented x 3. No cognitive and/or jmb functional deficits noted. Patient verbalized understanding of disposition instructions. Patient awake and alert. obeys commands, Oriented to person, place and time. Patient verbalized understanding of disposition instructions. Patient has no functional deficits. patient administered narcotics - yes. Pt provided with safe discharge. The following High Risk Discharge criteria are identified: None. Discharged to home ambulatory, with significant other. Condition: stable. Discharge instructions given to patient, Instructed on discharge instructions, follow up and referral plans. medication usage, Demonstrated understanding of instructions, medications, Pt was receptive of discharge instructions/ teaching. No special radiology studies were completed. Property sent home with patient. 15:49 Patient left the ED. ina Addendum: 07/31/2016 15:07 Narrative: Urine culture results reviewed by MINA Umana and no changes made. [facility] Signatures: Dispatcher [employer] EDCT Bin HernandezRN Samanta Hernandez RN RN [facility] Rachelle Ferrari, PA-C PA-C ef1 Carmelita Pena RN RN hs1 Zeeshan Jo jml1 Jose Eduardo TeixeiraRN RN emilyb Brunilda FoxRN RN ms18 Teri Pérez, Letter Of Credit Document Examiner Unit sar1 Christophe Luevano rn1 Hollie Milner, Reg Reg hs2 MTDD
--- NOTE | 2016-07-31 15:09 | EDDOCDS ---
Physician Documentation [facility] Name: Mayra Tena Age: 46 yrs Sex: Female : 1970 Arrival Date: 07/27/2016 Time: 13:03 Bed I5 / M5 Private MD: Karen Montemayor Disposition: 07/27/16 15:40 Discharged to Home/Self Care. Impression: Urinary tract infection, site not specified, Fatty (change of) liver, not elsewhere classified. - Condition is Stable. - Discharge Instructions: Urinary Tract Infection, [id number]. - Prescriptions for Pyridium 200 mg Oral Tablet - take 1 tablet by ORAL route every 8 hours for 3 days; 9 tablet. Macrobid 100 mg Oral Capsule - take 100 milligram by ORAL route every 12 hours for 10 days; 20 capsule. Percocet 5- 325 mg Oral Tablet - take 1 tablet by ORAL route every 6 hours As needed MDD: 4 tabs; 10 tablet. - Medication Reconciliation, Local Pharmacy Hours form. - Follow up: Karen Montemayor; When: 1 - 2 days; Reason: Recheck today's complaints, Continuance of care. Follow up: Emergency Department; Reason: Worsening of conditions. - Problem is new. - Symptoms have improved. Historical: - Allergies: no known allergies; - Home Meds: 1. aspirin 81 mg Oral chew 1 tab once daily 2. metformin 500 mg Oral Tb24 2 tabs once daily 3. lisinopril 10 mg Oral tab 1 tab once daily - PMHx: CVA; psoriatic arthritis; TIA; Hypertension; Diabetes - NIDDM: controlled; - PSHx: LP shunt; Cervical Laminectomy; Appendectomy; Hysterectomy; Tubal ligation; ; - Social history: Smoking status: No barriers to communication noted, The patient speaks fluent Croatian. - Family history: Not pertinent. - : The pt / caregiver states he / she is not on anticoagulants. Home medication list is obtained from the patient. 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 3 in. (160.02 cm) (R); Pain 4/10; 15:34 BP 129 / 62; Pulse 75; Resp 20; Temp 97.3(O); Pulse Ox 100% on R/A; Pain 1/10; jml1 13:06 Body Mass Index 38.62 (98.88 kg, 160.02 cm) sar1 MDM: 13:31 UA Ordered. EDMS 13:31 Urine Culture Ordered. EDMS 14:24 UA Reviewed. ef1 14:32 NS 0.9% 1000 ml IV at bolus once ordered. ef1 14:32 ketorolac 30 mg IVP once ordered. ef1 14:32 IV Saline Lock ordered. ef1 14:32 Undress patient appropriately for examination ordered. ef1 14:32 morphine 4 mg IVP once ordered. ef1 14:34 Amylase Ordered. EDMS 14:34 Basic Metabolic Profile Ordered. EDMS 14:34 CBC with Diff Ordered. EDMS 14:34 Lipase Ordered. EDMS 14:34 Liver Profile Ordered. EDMS 14:34 CT ABD & PELVIS: No Contrast Ordered. EDMS 14:34 NOTHING BY MOUTH+DIET ordered. EDMS 15:33 Basic Metabolic Profile Reviewed. ef1 15:33 CBC with Diff Reviewed. ef1 15:33 Liver Profile Reviewed. ef1 15:33 Amylase Reviewed. ef1 15:33 Lipase Reviewed. ef1 15:33 CT ABD & PELVIS: No Contrast Reviewed. ef1 15:35 Nitrofurantoin 100 mg PO once ordered. ef1 15:35 Phenazopyridine 200 mg PO once ordered. ef1 07/28 05:49 T-Sheet-- Draft Copy was scanned into [employer] and attached to record. hs2 Administered Medications: 07/27 14:56 Drug: NS 0.9% 1000 ml [sodium chloride 0.9 % intravenous solution] Route: IV; Rate: hs1 bolus; Site: right antecubital; 14:56 Drug: ketorolac 30 mg [ketorolac 30 mg/mL (1 mL) injection solution (1 mL)] Route: IVP; hs1 Site: right antecubital; 14:56 Drug: morphine 4 mg [morphine 4 mg/mL intravenous cartridge (1 mL)] Route: IVP; Site: hs1 right antecubital; 15:44 Drug: Nitrofurantoin 100 mg [nitrofurantoin macrocrystal 50 mg capsule (2 caps)] Route: jmb PO; 15:44 Drug: Phenazopyridine 200 mg [phenazopyridine 100 mg tablet (2 tabs)] Route: PO; ina Signatures: Dispatcher [employer] Bin Pedro,RN RN po Rachelle Ferrari PA-C PA-C ef1 Jose Eduardo Teixeira RN RN jmb Hollie Milner, Reg Reg hs2 Carmelita Pena RN hs1 The chart was reviewed and I authenticate all verbal orders and agree with the evaluation and treatment provided.Attachments: 07/28 05:49 T-Sheet-- Draft Copy hs2 Chart Complete MTDD
--- NOTE | 2016-07-31 17:04 | EDDOCDS ---
Physician Documentation [facility] Name: Mayra Tena Age: 46 yrs Sex: Female : 1970 Arrival Date: 07/27/2016 Time: 13:03 Bed I5 / M5 Private MD: Karen Montemayor Disposition: 07/27/16 15:40 Discharged to Home/Self Care. Impression: Urinary tract infection, site not specified, Fatty (change of) liver, not elsewhere classified. - Condition is Stable. - Discharge Instructions: Urinary Tract Infection, Naim-fw-[id number]. - Prescriptions for Pyridium 200 mg Oral Tablet - take 1 tablet by ORAL route every 8 hours for 3 days; 9 tablet. Macrobid 100 mg Oral Capsule - take 100 milligram by ORAL route every 12 hours for 10 days; 20 capsule. Percocet 5- 325 mg Oral Tablet - take 1 tablet by ORAL route every 6 hours As needed MDD: 4 tabs; 10 tablet. - Medication Reconciliation, Local Pharmacy Hours form. - Follow up: Karen Montemayor; When: 1 - 2 days; Reason: Recheck today's complaints, Continuance of care. Follow up: Emergency Department; Reason: Worsening of conditions. - Problem is new. - Symptoms have improved. Historical: - Allergies: no known allergies; - Home Meds: 1. aspirin 81 mg Oral chew 1 tab once daily 2. metformin 500 mg Oral Tb24 2 tabs once daily 3. lisinopril 10 mg Oral tab 1 tab once daily - PMHx: CVA; psoriatic arthritis; TIA; Hypertension; Diabetes - NIDDM: controlled; - PSHx: LP shunt; Cervical Laminectomy; Appendectomy; Hysterectomy; Tubal ligation; ; - Social history: Smoking status: No barriers to communication noted, The patient speaks fluent Setswana. - Family history: Not pertinent. - : The pt / caregiver states he / she is not on anticoagulants. Home medication list is obtained from the patient. 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 3 in. (160.02 cm) (R); Pain 4/10; 15:34 BP 129 / 62; Pulse 75; Resp 20; Temp 97.3(O); Pulse Ox 100% on R/A; Pain 1/10; jml1 13:06 Body Mass Index 38.62 (98.88 kg, 160.02 cm) sar1 MDM: 13:31 UA Ordered. EDMS 13:31 Urine Culture Ordered. EDMS 14:24 UA Reviewed. ef1 14:32 NS 0.9% 1000 ml IV at bolus once ordered. ef1 14:32 ketorolac 30 mg IVP once ordered. ef1 14:32 IV Saline Lock ordered. ef1 14:32 Undress patient appropriately for examination ordered. ef1 14:32 morphine 4 mg IVP once ordered. ef1 14:34 Amylase Ordered. EDMS 14:34 Basic Metabolic Profile Ordered. EDMS 14:34 CBC with Diff Ordered. EDMS 14:34 Lipase Ordered. EDMS 14:34 Liver Profile Ordered. EDMS 14:34 CT ABD & PELVIS: No Contrast Ordered. EDMS 14:34 NOTHING BY MOUTH+DIET ordered. EDMS 15:33 Basic Metabolic Profile Reviewed. ef1 15:33 CBC with Diff Reviewed. ef1 15:33 Liver Profile Reviewed. ef1 15:33 Amylase Reviewed. ef1 15:33 Lipase Reviewed. ef1 15:33 CT ABD & PELVIS: No Contrast Reviewed. ef1 15:35 Nitrofurantoin 100 mg PO once ordered. ef1 15:35 Phenazopyridine 200 mg PO once ordered. ef1 07/28 05:49 T-Sheet-- Draft Copy was scanned into [employer] and attached to record. hs2 Administered Medications: 07/27 14:56 Drug: NS 0.9% 1000 ml [sodium chloride 0.9 % intravenous solution] Route: IV; Rate: hs1 bolus; Site: right antecubital; 14:56 Drug: ketorolac 30 mg [ketorolac 30 mg/mL (1 mL) injection solution (1 mL)] Route: IVP; hs1 Site: right antecubital; 14:56 Drug: morphine 4 mg [morphine 4 mg/mL intravenous cartridge (1 mL)] Route: IVP; Site: hs1 right antecubital; 15:44 Drug: Nitrofurantoin 100 mg [nitrofurantoin macrocrystal 50 mg capsule (2 caps)] Route: jmb PO; 15:44 Drug: Phenazopyridine 200 mg [phenazopyridine 100 mg tablet (2 tabs)] Route: PO; ina Signatures: Dispatcher [employer] Bin Pedro,RN RN po Rachelle Ferrari PA-C PA-C ef1 Jose Eduardo Teixeira RN RN jmb Hollie Milner, Reg Reg hs2 Carmelita Pnea RN hs1 The chart was reviewed and I authenticate all verbal orders and agree with the evaluation and treatment provided.Attachments: 07/28 05:49 T-Sheet-- Draft Copy hs2 Chart Complete MTDD
--- NOTE | 2016-07-31 17:04 | EDDOCDS ---
Physician Documentation [facility] Name: Mayra Tena Age: 46 yrs Sex: Female : 1970 Arrival Date: 07/27/2016 Time: 13:03 Bed I5 / M5 Private MD: Karen Montemayor Disposition: 07/27/16 15:40 Discharged to Home/Self Care. Impression: Urinary tract infection, site not specified, Fatty (change of) liver, not elsewhere classified. - Condition is Stable. - Discharge Instructions: Urinary Tract Infection, [id number]. - Prescriptions for Pyridium 200 mg Oral Tablet - take 1 tablet by ORAL route every 8 hours for 3 days; 9 tablet. Macrobid 100 mg Oral Capsule - take 100 milligram by ORAL route every 12 hours for 10 days; 20 capsule. Percocet 5- 325 mg Oral Tablet - take 1 tablet by ORAL route every 6 hours As needed MDD: 4 tabs; 10 tablet. - Medication Reconciliation, Local Pharmacy Hours form. - Follow up: Karen Montemayor; When: 1 - 2 days; Reason: Recheck today's complaints, Continuance of care. Follow up: Emergency Department; Reason: Worsening of conditions. - Problem is new. - Symptoms have improved. Historical: - Allergies: no known allergies; - Home Meds: 1. aspirin 81 mg Oral chew 1 tab once daily 2. metformin 500 mg Oral Tb24 2 tabs once daily 3. lisinopril 10 mg Oral tab 1 tab once daily - PMHx: CVA; psoriatic arthritis; TIA; Hypertension; Diabetes - NIDDM: controlled; - PSHx: LP shunt; Cervical Laminectomy; Appendectomy; Hysterectomy; Tubal ligation; ; - Social history: Smoking status: No barriers to communication noted, The patient speaks fluent Lao. - Family history: Not pertinent. - : The pt / caregiver states he / she is not on anticoagulants. Home medication list is obtained from the patient. 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 3 in. (160.02 cm) (R); Pain 4/10; 15:34 BP 129 / 62; Pulse 75; Resp 20; Temp 97.3(O); Pulse Ox 100% on R/A; Pain 1/10; jml1 13:06 Body Mass Index 38.62 (98.88 kg, 160.02 cm) sar1 MDM: 13:31 UA Ordered. EDMS 13:31 Urine Culture Ordered. EDMS 14:24 UA Reviewed. ef1 14:32 NS 0.9% 1000 ml IV at bolus once ordered. ef1 14:32 ketorolac 30 mg IVP once ordered. ef1 14:32 IV Saline Lock ordered. ef1 14:32 Undress patient appropriately for examination ordered. ef1 14:32 morphine 4 mg IVP once ordered. ef1 14:34 Amylase Ordered. EDMS 14:34 Basic Metabolic Profile Ordered. EDMS 14:34 CBC with Diff Ordered. EDMS 14:34 Lipase Ordered. EDMS 14:34 Liver Profile Ordered. EDMS 14:34 CT ABD & PELVIS: No Contrast Ordered. EDMS 14:34 NOTHING BY MOUTH+DIET ordered. EDMS 15:33 Basic Metabolic Profile Reviewed. ef1 15:33 CBC with Diff Reviewed. ef1 15:33 Liver Profile Reviewed. ef1 15:33 Amylase Reviewed. ef1 15:33 Lipase Reviewed. ef1 15:33 CT ABD & PELVIS: No Contrast Reviewed. ef1 15:35 Nitrofurantoin 100 mg PO once ordered. ef1 15:35 Phenazopyridine 200 mg PO once ordered. ef1 07/28 05:49 T-Sheet-- Draft Copy was scanned into [employer] and attached to record. hs2 Administered Medications: 07/27 14:56 Drug: NS 0.9% 1000 ml [sodium chloride 0.9 % intravenous solution] Route: IV; Rate: hs1 bolus; Site: right antecubital; 14:56 Drug: ketorolac 30 mg [ketorolac 30 mg/mL (1 mL) injection solution (1 mL)] Route: IVP; hs1 Site: right antecubital; 14:56 Drug: morphine 4 mg [morphine 4 mg/mL intravenous cartridge (1 mL)] Route: IVP; Site: hs1 right antecubital; 15:44 Drug: Nitrofurantoin 100 mg [nitrofurantoin macrocrystal 50 mg capsule (2 caps)] Route: jmb PO; 15:44 Drug: Phenazopyridine 200 mg [phenazopyridine 100 mg tablet (2 tabs)] Route: PO; ina Signatures: Dispatcher [employer] Bin Pedro,RN RN po Rachelle Ferrari PA-C PA-C ef1 Jose Eduardo Teixeira RN RN jmb Hollie Milner, Reg Reg hs2 Carmelita Pena RN hs1 The chart was reviewed and I authenticate all verbal orders and agree with the evaluation and treatment provided.Attachments: 07/28 05:49 T-Sheet-- Draft Copy hs2 Chart Complete MTDD
--- NOTE | 2016-07-31 17:04 | EDDOCDS ---
Nurse's Notes [facility] Name: Mayra Tena Age: 46 yrs Sex: Female : 1970 Arrival Date: 07/27/2016 Time: 13:03 Bed I5 / M5 Private MD: Karen Montemayor Diagnosis: Urinary tract infection, site not specified;Fatty (change of) liver, not elsewhere classified Presentation: 07/27 13:10 Presenting complaint: Patient states: burning with urination, frequency, cloudy urine, po pressure and lower back pain. Adult Sepsis Screening: The patient does not have new or worsening altered mentation. Patient's respiratory rate is less than 22. Systolic blood pressure is greater than 100. Patient has a qSOFA score of 0- Negative Sepsis Screen. Suicide/Homicide risk assessment- the patient denies having any suicidal and/or homicidal ideations and does not present with any other emotional, behavioral or mental health complaints. Status: Patient is not a customer service representative or dependent. Transition of care: patient was not received from another setting of care. 13:10 Acuity: TESSA Level 4 po 13:10 Method Of Arrival: Walkin/Carried/Asstd po Triage Assessment: 13:16 General: Appears in no apparent distress, Behavior is appropriate for age, cooperative. po Pain: Location: low back area and suprapubic area Pain currently is 4 out of 10 on a pain scale. Quality of pain is described as pressure, Is continuous. HIV screening NA for this visit Offered previously. Neurological: Level of Consciousness is awake, alert, Oriented to person, place, time. Respiratory: Airway is patent Respiratory effort is even, unlabored. : Reports burning with urination urinary frequency. Derm: Skin is pink, warm & dry. 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 aspirin 81 mg Oral chew 1 tab once daily 2. metformin 500 mg Oral Tb24 2 tabs once daily 3. lisinopril 10 mg Oral tab 1 tab once daily - PMHx: CVA; psoriatic arthritis; TIA; Hypertension; Diabetes - NIDDM: controlled; - PSHx: LP shunt; Cervical Laminectomy; Appendectomy; Hysterectomy; Tubal ligation; ; - Social history: Smoking status: No barriers to communication noted, The patient speaks fluent [place]. - Family history: Not pertinent. - : The pt / caregiver states he / she is not on anticoagulants. Home medication list is obtained from the patient. 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 Screenin:58 Screening information is obtained from the patient. Fall risk: No risks identified. hs1 Assistance ADL's: requires no assistance with activities of daily living. Abuse/DV Screen: The patient / caregiver reports he/she is: not in a situation that causes fear, pain or injury. Nutritional screening: No deficits noted. Advance Directives: There is no active DNR order. home support is adequate. Assessment: 14:58 General: Appears in no apparent distress, Behavior is appropriate for age, cooperative. hs1 Pain: Location: pelvis. Cardiovascular: No deficits noted. GI: Reports nausea. : Reports burning with urination urinary frequency. Derm: Skin is pink, warm & dry. normal. 15:24 Reassessment: Patient appears in no apparent distress at this time. Patient states hs1 feeling better. Patient states symptoms have improved. Pain: Location: pelvis Pain currently is 4 out of 10 on a pain scale. Quality of pain is described as burning. 15:45 General: Patient instructed on discharge instructions. Patient asked if there were any [facility] questions regarding discharge, patient stated no. IV discontinued per hospital policy. Patient signed discharge instructions. Patient discharged in stable condition. . Vital Signs: 13:06 BP 122 / 67; Pulse 85; Resp 18; Temp 97.4(O); Pulse Ox 99% on R/A; Weight 98.88 kg (R); sar1 Height 5 ft. 3 in. (160.02 cm) (R); Pain 4/10; 15:34 BP 129 / 62; Pulse 75; Resp 20; Temp 97.3(O); Pulse Ox 100% on R/A; Pain 1/10; jml1 13:06 Body Mass Index 38.62 (98.88 kg, 160.02 cm) [facility] [place] Vitals: 13:06 Log In Time: July 27, 2016 at 13:06. [facility] [place] ED Course: 13:04 Patient visited by Teri Pérez, Drying Machine Operator. sar1 13:04 Patient moved to Waiting sar 13:06 Karen Montemayor MD is Private Physician. sar1 13:07 Patient moved to Pre RCE sar1 13:12 Triage Initiated po 13:16 Arm band placed on right wrist. Patient placed in waiting room. po 13:18 Patient visited by Bin Hernandez RN. po 13:49 Patient moved to Triage 3 rn1 13:58 Urine Culture Sent. rn1 13:58 UA Sent. rn1 14:17 Rachelle Ferrari PA-C [facility] ef1 14:17 Miya Cruz MD is Attending Physician. ef1 14:19 Patient visited by Rachelle Ferrari PA-C. ef1 14:33 Mary Rodriguez, JAMAAL is Primary Nurse. ms18 14:33 Patient moved to I5 / M5 ms18 14:50 Inserted saline lock: 20 gauge in right antecubital area and blood collected. The hs1 patient tolerated the procedure well. 14:56 Amylase Sent. hs1 14:56 Basic Metabolic Profile Sent. hs1 14:56 CBC with Diff Sent. hs1 14:56 Lipase Sent. hs1 14:57 Liver Profile Sent. hs1 14:58 Patient visited by Carmelita Pena RN. hs1 15:31 CT ABD & PELVIS: No Contrast Returned. EDMS 15:33 Patient visited by Rachelle Ferrari PA-C. ef1 15:34 Patient visited by Zeeshan Jo. jml1 15:40 Karen Montemayor MD is Referral Physician. ef1 15:45 The patient / caregiver is instructed regarding the plan of care and ED course. jmb 15:45 Discontinued lock intact, bleeding controlled, pressure dressing applied, No jmb redness/swelling at site. No procedures done that require assistance. 07/28 05:49 T-Sheet-- Draft Copy was scanned into [employer] and attached to record. hs2 Administered Medications: 07/27 14:56 Drug: NS 0.9% 1000 ml [sodium chloride 0.9 % intravenous solution] Route: IV; Rate: hs1 bolus; Site: right antecubital; 14:56 Drug: ketorolac 30 mg [ketorolac 30 mg/mL (1 mL) injection solution (1 mL)] Route: IVP; hs1 Site: right antecubital; 14:56 Drug: morphine 4 mg [morphine 4 mg/mL intravenous cartridge (1 mL)] Route: IVP; Site: hs1 right antecubital; 15:44 Drug: Nitrofurantoin 100 mg [nitrofurantoin macrocrystal 50 mg capsule (2 caps)] Route: jmb PO; 15:44 Drug: Phenazopyridine 200 mg [phenazopyridine 100 mg tablet (2 tabs)] Route: PO; [facility] Order Results: Lab Order: UA; SPEC'M 07/27/16 13:55 Test: APPEARANCE, URINE; Value: CLEAR; Range: CLEAR; Status: F Test: COLOR, URINE; Value: COLORLESS; Range: YELLOW; Status: F Test: PH,URINE; Value: 6.0; Range: 5.0-9.0; Units: UNITS; Status: F Test: SPECIFIC GRAVITY URINE AUTO; Value: 1.000; Range: 1.002-1.035; Abnormal: Below low normal; Status: F Test: PROTEIN, URINE AUTO; Value: NEGATIVE; Range: NEGATIVE; Units: mg/dL; Status: F Test: GLUCOSE, URINE (UA) AUTO; Value: NEGATIVE; Range: NEGATIVE; Units: mg/dL; Status: F Test: KETONE, URINE AUTO; Value: NEGATIVE; Range: NEGATIVE; Units: mg/dL; Status: F Test: UROBILINOGEN, URINE AUTO; Value: 0.2; Range: 0.0-2.0; Units: mg/dL; Status: F Test: BILIRUBIN, URINE AUTO; Value: NEGATIVE; Range: NEGATIVE; Status: F Test: NITRITE, URINE AUTO; Value: NEGATIVE; Range: NEGATIVE; Status: F Test: LEUKOCYTE ESTERASE, URINE AUTO; Value: 3+; Range: NEGATIVE; Abnormal: Above high normal; Status: F Test: BLOOD, URINE BLOOD; Value: 3+; Range: NEGATIVE; Abnormal: Above high normal; Status: F Test: WBC, URINE AUTO; Value: 7; Range: 0-3; Abnormal: Above high normal; Units: /HPF; Status: F Test: RBC, URINE AUTO; Value: 0; Range: 0-3; Units: /HPF; Status: F Test: BACTERIA, URINE AUTO; Value: NEGATIVE; Range: NEGATIVE; Status: F Test: SQUAMOUS EPITHELIAL CELL UR AU; Value: 0; Range: 0-6; Units: /HPF; Status: F Test: HYALINE CAST, URINE AUTO; Value: 0; Range: 0-1; Units: /LPF; Status: F Lab Order: Urine Culture; SPEC'M 07/27/16 13:55 Test: URINE CULTURE; Value: ORGANISM 1: ESCHERICHIA COLI; Status: F Test: URINE CULTURE; Value: ESCHERICHIA COLI; Status: F Test: URINE CULTURE; Value: COLONY COUNT CFU/ml 50,000; Status: F Test: URINE CULTURE; Value: GRAM NEG SENSI - VITEK 80; Status: F Test: URINE CULTURE; Value: Method: VIT2; Status: F Test: URINE CULTURE; Value: EXTD BRD SPCTRM BETA LACTAMASE -; Status: F Test: URINE CULTURE; Value: TRIMETHOPRIM/SULFAMETHOXAZOLE <=20 S; Status: F Test: URINE CULTURE; Value: AMPICILLIN 4 S; Status: F Test: URINE CULTURE; Value: GENTAMICIN <=1 S; Status: F Test: URINE CULTURE; Value: NITROFURANTOIN <=16 S; Status: F Test: URINE CULTURE; Value: CEFAZOLIN <=4 S; Status: F Test: URINE CULTURE; Value: LEVOFLOXACIN <=0.12 S; Status: F Test: URINE CULTURE; Value: TOBRAMYCIN <=1 S; Status: F Test: URINE CULTURE; Value: CEFTRIAXONE <=1 S; Status: F Test: URINE CULTURE; Value: CEFTAZIDIME <=1 S; Status: F Test: URINE CULTURE; Value: AMPICILLIN/SULBACTAM <=2 S; Status: F Test: URINE CULTURE; Value: PIPERACILLIN/TAZOBACTAM <=4 S; Status: F Test: URINE CULTURE; Value: AZTREONAM <=1 S; Status: F Test: URINE CULTURE; Value: ERTAPENEM <=0.5 S; Status: F Test: URINE CULTURE; Value: MEROPENEM <=0.25 S; Status: F Test: URINE CULTURE; Value: TIGECYCLINE <=0.5 S; Status: F Test: URINE CULTURE; Value: CEFEPIME <=1 S; Status: F Lab Order: Amylase; SPEC'M 07/27/16 14:53 Test: AMYLASE; Value: 25; Range: 25-115; Units: U/L; Status: F Lab Order: Basic Metabolic Profile; SPEC'M 07/27/16 14:53 Test: GLUCOSE, FASTING; Value: 92; Range: 70-105; Units: MG/DL; Status: F Test: BLOOD UREA NITROGEN; Value: 10; Range: 7-18; Units: MG/DL; Status: F Test: CREATININE FOR GFR; Value: 0.75; Range: 0.55-1.02; Units: MG/DL; Status: F Test: GLOMERULAR FILTRATION RATE; Value: > 60.0; Range: >58; Status: F Test: SODIUM LEVEL; Value: 139; Range: 136-145; Units: MEQ/L; Status: F Test: POTASSIUM SERUM; Value: 4.1; Range: 3.5-5.1; Units: MEQ/L; Status: F Test: CHLORIDE LEVEL; Value: 103; Range: 98-107; Units: MEQ/L; Status: F Test: CARBON DIOXIDE LEVEL; Value: 29; Range: 21-32; Units: MEQ/L; Status: F Test: ANION GAP; Value: 7; Range: 8-16; Abnormal: Below low normal; Units: MEQ/L; Status: F Test: CALCIUM LEVEL; Value: 9.0; Range: 8.5-10.1; Units: MG/DL; Status: F Test Note: ; Units are mL/min/1.73 m2 Chronic Kidney Disease Staging per NKF: Stage I & II GFR >=60 Normal to Mildly Decreased Stage III GFR 30-59 Moderately Decreased Stage IV GFR 15-29 Severely Decreased Stage V GFR <15 Very Little GFR Left ESRD GFR <15 on GREENHOUSE ASSISTANT Lab Order: CBC with Diff; SPEC'M 07/27/16 14:53 Test: WHITE BLOOD COUNT; Value: 15.1; Range: 4.0-10.0; Abnormal: Above high normal; Units: K/mm3; Status: F Test: RED BLOOD COUNT; Value: 4.87; Range: 4.00-5.40; Units: M/mm3; Status: F Test: HEMOGLOBIN; Value: 14.0; Range: 12.0-16.0; Units: g/dl; Status: F Test: HEMATOCRIT; Value: 42.7; Range: 36.0-47.0; Units: %; Status: F Test: MEAN CORPUSCULAR VOLUME; Value: 87.6; Range: 80.0-96.0; Units: fl; Status: F Test: MEAN CORPUSCULAR HEMOGLOBIN; Value: 28.7; Range: 27.0-33.0; Units: pg; Status: F Test: MEAN CORPUSCULAR HGB CONC; Value: 32.8; Range: 32.0-36.5; Units: g/dl; Status: F Test: RED CELL DISTRIBUTION WIDTH; Value: 13.4; Range: 11.5-14.5; Units: %; Status: F Test: PLATELET COUNT, AUTOMATED; Value: 314; Range: 150-450; Units: k/mm3; Status: F Test: NEUTROPHILS %; Value: 83.2; Range: 36.0-66.0; Abnormal: Above high normal; Units: %; Status: F Test: LYMPH %; Value: 11.0; Range: 24.0-44.0; Abnormal: Below low normal; Units: %; Status: F Test: MONO %; Value: 4.0; Range: 0.0-5.0; Units: %; Status: F Test: EOS %; Value: 0.7; Range: 0.0-3.0; Units: %; Status: F Test: BASO %; Value: 0.3; Range: 0.0-1.0; Units: %; Status: F Test: LARGE UNSTAINED CELL %; Value: 0.9; Range: 0.0-4.0; Units: %; Status: F Test: NEUTROPHILS #; Value: 12.5; Range: 1.8-7.7; Abnormal: Above high normal; Units: K/mm3; Status: F Test: LYMPH #; Value: 1.7; Range: 1.5-4.5; Units: K/mm3; Status: F Test: MONO #; Value: 0.6; Range: 0.0-0.8; Units: K/mm3; Status: F Test: EOS #; Value: 0.1; Range: 0.0-0.50; Units: K/mm3; Status: F Test: BASO #; Value: 0.0; Range: 0.0-0.2; Units: K/mm3; Status: F Test: LARGE UNSTAINED CELL #; Value: 0.1; Range: 0.0-0.4; Units: K/mm3; Status: F Lab Order: Lipase; SPEC'M 07/27/16 14:53 Test: LIPASE; Value: 76; Range: 73-393; Units: U/L; Status: F Lab Order: Liver Profile; SPEC'M 07/27/16 14:53 Test: AST/SGOT; Value: 14; Range: 15-37; Abnormal: Below low normal; Units: U/L; Status: F Test: ALT/SGPT; Value: 33; Range: 12-78; Units: U/L; Status: F Test: ALKALINE PHOSPHATASE; Value: 116; Range: 45-117; Units: U/L; Status: F Test: BILIRUBIN,TOTAL; Value: 0.3; Range: 0.2-1.0; Units: MG/DL; Status: F Test: BILIRUBIN,DIRECT; Value: < 0.1; Range: 0.0-0.2; Units: MG/DL; Status: F Test: TOTAL PROTEIN; Value: 7.9; Range: 6.4-8.2; Units: GM/DL; Status: F Test: ALBUMIN; Value: 3.6; Range: 3.2-5.2; Units: GM/DL; Status: F Test: ALBUMIN/GLOBULIN RATIO; Value: 0.84; Range: 1.00-1.93; Abnormal: Below low normal; Status: F Radiology Order: CT ABD & PELVIS: No Contrast Test: CT ABD & PELVIS: No Contrast REASON FOR EXAMINATION: Renal colic; Clinical: Renal colic.; ; Comparison: 07/10/2014; ; Findings:; Lung bases clear. Visualized heart and pericardium normal.; ; Fatty infiltration to the liver noted. Spleen, pancreas, gallbladder, bilateral; adrenal glands and kidneys are normal for noncontrast evaluation. The enteric; system is without obstruction or acute inflammatory process. Pelvis demonstrates; normal bladder and evidence for prior hysterectomy. Small left ovarian cyst is; likely physiologic. An epidural catheter at the level of the L3 extends through; the subcutaneous tissues into the abdomen. No pelvic fluid or ascites. No; obvious adenopathy. Abdominal aorta without aneurysm. Skeletal structures; without focal osseous abnormality.; ; Impression:; No acute intra-abdominal or pelvic pathology appreciated.; Fatty infiltration to the liver.; Chronic stable changes as described above.; ; ; Signed by; Tristan Christensen MD 07/27/2016 02:54 P; Outcome: 15:40 Discharge ordered by Provider. ef1 15:45 Discharge Assessment: Patient awake, alert and oriented x 3. No cognitive and/or jmb functional deficits noted. Patient verbalized understanding of disposition instructions. Patient awake and alert. obeys commands, Oriented to person, place and time. Patient verbalized understanding of disposition instructions. Patient has no functional deficits. patient administered narcotics - yes. Pt provided with safe discharge. The following High Risk Discharge criteria are identified: None. Discharged to home ambulatory, with significant other. Condition: stable. Discharge instructions given to patient, Instructed on discharge instructions, follow up and referral plans. medication usage, Demonstrated understanding of instructions, medications, Pt was receptive of discharge instructions/ teaching. No special radiology studies were completed. Property sent home with patient. 15:49 Patient left the ED. ina Addendum: 07/31/2016 15:07 Narrative: Urine culture results reviewed by MINA Umana and no changes made. [facility] Signatures: Dispatcher [employer] EDID Bin HernandezRN Samanta Hernandez RN RN [facility] Rachelle Ferrari, PA-C PA-C ef1 Carmelita Pena RN RN hs1 Zeeshan Jo jml1 Jose Eduardo TeixeiraRN RN emilyb Brunilda FoxRN RN ms18 Teri Pérez, Drying Machine Operator Unit sar1 Christophe Luevano rn1 Hollie Milner, Reg Reg hs2 Chart Complete MTDD
== END 2016-07-27 15:49 | disposition home or self-care (01) ==
LOC: M ED 13:03
DX: N39.0 Urinary tract infection, site not specified (principal); K76.0 Fatty (change of) liver, not elsewhere classified; G45.9 Transient cerebral ischemic attack, unspecified; L40.50 Arthropathic psoriasis, unspecified; I10 Essential (primary) hypertension; E11.9 Type 2 diabetes mellitus without complications; Z98.2 Presence of cerebrospinal fluid drainage device; Z79.82 Long term (current) use of aspirin; Z79.899 Other long term (current) drug therapy
CPT/HCPCS: 36415; 74176; 80048; 80076; 81001; 82150; 83690; 85025; 87088; 87186; 96374; 96375; 99284; J1885

== ENCOUNTER → 2016-09-22 | Outpatient (CLI) | payer BC ==
[~2016-09-22] MED LIST changes: +LOPR1TAB6 PO; -LOPR50TA PO
[2016-09-22 16:55] LABS: BASO % 0.4 % (0.0-1.0); EOS # 0.1 K/mm3 (0.0-0.50); EOS % 0.9 % (0.0-3.0); LARGE UNSTAINED CELL # 0.1 K/mm3 (0.0-0.4); LARGE UNSTAINED CELL % 1.1 % (0.0-4.0); LYMPH # 2.5 K/mm3 (1.5-4.5); LYMPH % 27.2 % (24.0-44.0); MEAN CORPUSCULAR HEMOGLOBIN 29.3 pg (27.0-33.0); MEAN CORPUSCULAR HGB CONC 33.4 g/dl (32.0-36.5); MEAN CORPUSCULAR VOLUME 87.9 fl (80.0-96.0); MONO # 0.5 K/mm3 (0.0-0.8); NEUTROPHILS # 5.6 K/mm3 (1.8-7.7); NEUTROPHILS % 64.4 % (36.0-66.0); PLATELET COUNT, AUTOMATED 341 k/mm3 (150-450); RED CELL DISTRIBUTION WIDTH 12.7 % (11.5-14.5); WHITE BLOOD COUNT 8.7 K/mm3 (4.0-10.0)
[2016-09-22 17:53] LABS: ALBUMIN 3.6 GM/DL (3.2-5.2); ALBUMIN/GLOBULIN RATIO 0.97 (1.00-1.93); ALKALINE PHOSPHATASE 120 U/L (45-117); ALT/SGPT 31 U/L (12-78); ANION GAP 10 MEQ/L (8-16); AST/SGOT 17 U/L (15-37); BILIRUBIN,TOTAL 0.2 MG/DL (0.2-1.0); BLOOD UREA NITROGEN 14 MG/DL (7-18); CALCIUM LEVEL 9.2 MG/DL (8.5-10.1); CARBON DIOXIDE LEVEL 26 MEQ/L (21-32); CHLORIDE LEVEL 104 MEQ/L (98-107); CREATININE FOR GFR 0.73 MG/DL (0.55-1.02); GLOMERULAR FILTRATION RATE > 60.0 (>58); GLUCOSE, FASTING 122 MG/DL (70-105); POTASSIUM SERUM 4.3 MEQ/L (3.5-5.1); SODIUM LEVEL 140 MEQ/L (136-145); TOTAL PROTEIN 7.3 GM/DL (6.4-8.2)
== END ==
LOC: M WUC 15:31
PROVIDERS: ATTEND Family Medicine
DX: E11.65 Type 2 diabetes mellitus with hyperglycemia (principal)

== ENCOUNTER → 2016-11-12 | Outpatient (REF) | payer BC | LOC: M LAB REF 16:57 | PROVIDERS: ATTEND Physician Assistant Medical | DX: R31.9 Hematuria, unspecified (principal) ==

== ENCOUNTER → 2017-02-03 | Outpatient (CLI) | payer BC ==
[~2017-02-03] MED LIST changes: -SENO8.6T2 PO; +SENO8.6T5 PO
[2017-02-03 09:48] LABS: ALBUMIN 3.7 GM/DL (3.2-5.2); ALBUMIN/GLOBULIN RATIO 1.06 (1.00-1.93); ALKALINE PHOSPHATASE 101 U/L (45-117); ALT/SGPT 22 U/L (12-78); ANION GAP 9 MEQ/L (8-16); AST/SGOT 12 U/L (15-37); BILIRUBIN,TOTAL 0.4 MG/DL (0.2-1.0); BLOOD UREA NITROGEN 13 MG/DL (7-18); CALCIUM LEVEL 9.3 MG/DL (8.5-10.1); CARBON DIOXIDE LEVEL 25 MEQ/L (21-32); CHLORIDE LEVEL 104 MEQ/L (98-107); CREATININE FOR GFR 0.75 MG/DL (0.55-1.02); GLOMERULAR FILTRATION RATE > 60.0 (>58); GLUCOSE, FASTING 138 MG/DL (70-105); POTASSIUM SERUM 4.2 MEQ/L (3.5-5.1); SODIUM LEVEL 138 MEQ/L (136-145); TOTAL PROTEIN 7.2 GM/DL (6.4-8.2)
== END ==
LOC: M WUC 08:08
PROVIDERS: ATTEND Family Medicine
DX: E11.9 Type 2 diabetes mellitus without complications (principal)

== ENCOUNTER → 2017-02-10 | Outpatient (CLI) | payer BC ==
[2017-02-10 19:55] LABS: VITAMIN B12 LEVEL 311 PG/ML (247-911)
[2017-02-10 19:57] LABS: ALBUMIN 3.3 GM/DL (3.2-5.2); ALKALINE PHOSPHATASE 93 U/L (45-117); ALT/SGPT 19 U/L (12-78); ANION GAP 9 MEQ/L (8-16); AST/SGOT 12 U/L (15-37); BILIRUBIN,TOTAL 0.2 MG/DL (0.2-1.0); BLOOD UREA NITROGEN 15 MG/DL (7-18); CALCIUM LEVEL 8.5 MG/DL (8.5-10.1); CARBON DIOXIDE LEVEL 25 MEQ/L (21-32); CHLORIDE LEVEL 105 MEQ/L (98-107); CREATININE FOR GFR 0.72 MG/DL (0.55-1.02); FREE T4 1.02 NG/DL (0.76-1.46); GLOMERULAR FILTRATION RATE > 60.0 (>58); GLUCOSE, FASTING 107 MG/DL (70-105); POTASSIUM SERUM 3.9 MEQ/L (3.5-5.1); SODIUM LEVEL 139 MEQ/L (136-145); TOTAL PROTEIN 6.3 GM/DL (6.4-8.2)
[2017-02-10 20:06] LABS: BASO % 0.4 % (0.0-1.0); EOS # 0.1 K/mm3 (0.0-0.50); EOS % 0.8 % (0.0-3.0); LARGE UNSTAINED CELL # 0.1 K/mm3 (0.0-0.4); LARGE UNSTAINED CELL % 0.8 % (0.0-4.0); LYMPH # 2.3 K/mm3 (1.5-4.5); LYMPH % 19.4 % (24.0-44.0); MEAN CORPUSCULAR HEMOGLOBIN 29.6 pg (27.0-33.0); MEAN CORPUSCULAR HGB CONC 33.1 g/dl (32.0-36.5); MEAN CORPUSCULAR VOLUME 89.4 fl (80.0-96.0); MONO # 0.6 K/mm3 (0.0-0.8); MONO % 5.5 % (0.0-5.0); NEUTROPHILS # 8.2 K/mm3 (1.8-7.7); NEUTROPHILS % 73.1 % (36.0-66.0); PLATELET COUNT, AUTOMATED 292 k/mm3 (150-450); RED CELL DISTRIBUTION WIDTH 13.2 % (11.5-14.5); WHITE BLOOD COUNT 11.2 K/mm3 (4.0-10.0)
[2017-02-10 20:40] LABS: ERYTHROCYTE SEDIMENTATION RATE 12 mm/hr (0-20)
== END ==
LOC: M WUC 16:07
PROVIDERS: ATTEND Psychiatry & Neurology Neurology
DX: R20.2 Paresthesia of skin (principal); Z13.29 Encounter for screening for other suspected endocrine disorder

== ENCOUNTER → 2017-02-26 | Outpatient (CLI) | payer BC ==
--- NOTE | 2017-02-26 16:58 | REP ---
CT LUMBAR SPINE WITHOUT CONTRAST: HISTORY: Hypotension. There is no disc bulge or herniation at the L1-2 and L2-3 levels. The nerves exit the neural foramina without compression. A diffuse bulge is present at the L3-4 level. There is minimal compression of the thecal sac. The L3 nerves exit the neural foramina without compression. A diffuse disc bulge is present at the L4-5 level. There is hypertrophy of the ligamenta flava and posterior articulating facets. There are 2 mm of grade 1 spondylolisthesis of L4 on 5. These findings produce mild central canal stenosis. The L4 nerves exit the neural foramina without compression. A diffuse disc bulge is present at the L5-S1 level. There is minimal compression of the thecal sac. There is hypertrophy of the posterior articulating facets. The L5 nerves exit the neural foraminal without compression. The L4-5 and L5-S1 intervertebral discs are decreased in height consistent with disc degeneration. A catheter is present in the spinal canal. The catheter extends from the level of L3-4 intervertebral disc inferior to the S1-2 level. The catheter appears to enter the spinal canal at the L3-4 level. The catheter appears broken between the L3 and L4 spinous processes. . IMPRESSION: 1. Diffuse disc bulges at the L3-4 and L5-S1 levels with minimal thecal sac compression. 2. Mild central canal stenosis at the L4-5 level secondary to disc bulge, ligamentous and facet hypertrophy and grade 1 spondylolisthesis. 3. There is a catheter in the spinal canal extending from the level of the L3-4 level inferior to the S1-2 level. The catheter appears broken between the L3 and L4 spinous processes. Signed by Matthew Avina MD 02/26/2017 05:01 P
--- NOTE | 2017-02-27 08:11 | REP ---
Clinical: Abdominal pain and hypotension. Comparison: 07/27/2016. Findings: Lung bases are clear. Visualized heart and pericardium normal. Liver, spleen, pancreas, gallbladder, bilateral adrenal glands and kidneys are normal. The enteric system is without obstruction or acute inflammatory process. Pelvis demonstrates normal bladder and evidence for prior hysterectomy. No pelvic fluid or ascites. No adenopathy. No mass lesion. No free air. A catheter is identified extending from the lumbar epidural space via the right subcutaneous tissues into the abdomen. Abdominal aorta and vasculature without aneurysm. Surrounding musculoskeletal structures are intact. Impression: No acute abdominopelvic pathology appreciated. Signed by Tristan Christensen MD 02/27/2017 04:02 A
== END ==
LOC: M RAD 15:45
PROVIDERS: ATTEND Neurological Surgery
DX: I95.9 Hypotension, unspecified (principal)

== ENCOUNTER → 2017-04-16 | Outpatient (REF) | payer BC | LOC: M LAB REF 20:38 | PROVIDERS: ATTEND Physician Assistant | DX: R30.0 Dysuria (principal) ==

== ENCOUNTER → 2017-07-28 | Outpatient (CLI) | payer BC | LOC: M EKG 15:19 | DX: E66.01 Morbid (severe) obesity due to excess calories (principal) | CPT/HCPCS: 71046 ==

== ENCOUNTER → 2017-08-03 | Outpatient (CLI) | payer BC ==
[2017-08-03 09:48] LABS: HEMATOCRIT 43.2 % (36.0-47.0); MEAN CORPUSCULAR HEMOGLOBIN 28.7 pg (27.0-33.0); MEAN CORPUSCULAR HGB CONC 32.4 g/dl (32.0-36.5); MEAN CORPUSCULAR VOLUME 88.5 fl (80.0-96.0); PLATELET COUNT, AUTOMATED 289 10^3/uL (150-450); RED BLOOD COUNT 4.88 10^6/uL (4.00-5.40); RED CELL DISTRIBUTION WIDTH 13.1 % (11.5-14.5); WHITE BLOOD COUNT 8.6 10^3/uL (4.0-10.0)
[2017-08-03 10:13] LABS: ALBUMIN 3.6 GM/DL (3.2-5.2); ALBUMIN/GLOBULIN RATIO 1.09 (1.00-1.93); ALKALINE PHOSPHATASE 102 U/L (45-117); ALT/SGPT 20 U/L (12-78); ANION GAP 7 MEQ/L (8-16); AST/SGOT 11 U/L (7-37); BILIRUBIN,TOTAL 0.3 MG/DL (0.2-1.0); BLOOD UREA NITROGEN 14 MG/DL (7-18); CALCIUM LEVEL 8.3 MG/DL (8.5-10.1); CARBON DIOXIDE LEVEL 25 MEQ/L (21-32); CHLORIDE LEVEL 109 MEQ/L (98-107); CHOLESTEROL LEVEL 198 MG/DL (<200); CREATININE FOR GFR 0.75 MG/DL (0.55-1.02); FREE T4 0.93 NG/DL (0.76-1.46); GLOMERULAR FILTRATION RATE > 60.0 (>58); GLUCOSE, FASTING 125 MG/DL (70-105); HDL CHOLESTEROL 55 MG/DL (>40); IRON (FE) 63 UG/DL (50-170); LDL CHOLESTEROL 114.8 MG/DL (<100); NON-HDL-C 143 MG/DL; PERCENT SATURATION 21.6 % (13.2-45.0); SODIUM LEVEL 141 MEQ/L (136-145); TOTAL IRON BINDING CAPACITY 291 UG/DL (250-450); TOTAL PROTEIN 6.9 GM/DL (6.4-8.2); TRIGLYCERIDES LEVEL 141 MG/DL (<150)
[2017-08-03 10:15] LABS: ESTIMATED AVERAGE GLUCOSE 146 MG/DL (60-110); HEMOGLOBIN A1c 6.7 %
[2017-08-03 10:29] LABS: FOLATE 11.2 NG/ML (>5.4); TOTAL 25(OH) VITAMIN D 25.1 NG/ML (30.0-100.0); VITAMIN B12 LEVEL 264 PG/ML (247-911)
== END ==
LOC: M WUC 08:25
DX: E66.01 Morbid (severe) obesity due to excess calories (principal)

== ENCOUNTER → 2017-09-01 | Outpatient (CLI) | payer BC ==
[2017-09-01 18:12] LABS: ERYTHROCYTE SEDIMENTATION RATE 8 mm/hr (0-20)
[2017-09-01 18:14] LABS: ALBUMIN 3.6 GM/DL (3.2-5.2); ALBUMIN/GLOBULIN RATIO 1.09 (1.00-1.93); ALKALINE PHOSPHATASE 100 U/L (45-117); ALT/SGPT 19 U/L (12-78); ANION GAP 8 MEQ/L (8-16); AST/SGOT 11 U/L (7-37); BILIRUBIN,TOTAL 0.3 MG/DL (0.2-1.0); BLOOD UREA NITROGEN 14 MG/DL (7-18); C REACTIVE PROTEIN QUANTITATIV 0.98 MG/DL (0.00-0.30); CALCIUM LEVEL 8.7 MG/DL (8.5-10.1); CARBON DIOXIDE LEVEL 28 MEQ/L (21-32); CHLORIDE LEVEL 103 MEQ/L (98-107); CREATININE FOR GFR 0.62 MG/DL (0.55-1.30); GLOMERULAR FILTRATION RATE > 60.0 (>58); GLUCOSE, FASTING 114 MG/DL (70-100); POTASSIUM SERUM 4.1 MEQ/L (3.5-5.1); SODIUM LEVEL 139 MEQ/L (136-145); TOTAL PROTEIN 6.9 GM/DL (6.4-8.2)
== END ==
LOC: M LAB 16:01
DX: L40.50 Arthropathic psoriasis, unspecified (principal); K76.0 Fatty (change of) liver, not elsewhere classified; E66.9 Obesity, unspecified
CPT/HCPCS: 80053

== ENCOUNTER → 2017-11-09 | Outpatient (CLI) | payer BC ==
[2017-11-09 16:22] LABS: BASO % 0.4 % (0.0-1.0); EOS # 0.3 10^3/uL (0.0-0.50); EOS % 3.6 % (0.0-3.0); HEMATOCRIT 40.7 % (36.0-47.0); HEMOGLOBIN 12.7 g/dl (12.0-15.5); IMMATURE GRANULOCYTE % 0.3 % (0-3.0); LYMPH # 1.9 10^3/uL (1.5-4.5); MEAN CORPUSCULAR HEMOGLOBIN 27.9 pg (27.0-33.0); MEAN CORPUSCULAR HGB CONC 31.2 g/dl (32.0-36.5); MEAN CORPUSCULAR VOLUME 89.3 fl (80.0-96.0); MONO # 0.7 10^3/uL (0.0-0.8); NEUTROPHILS # 4.3 10^3/uL (1.8-7.7); NEUTROPHILS % 59.7 % (36.0-66.0); PLATELET COUNT, AUTOMATED 270 10^3/uL (150-450); RED BLOOD COUNT 4.56 10^6/uL (4.00-5.40); RED CELL DISTRIBUTION WIDTH 14.1 % (11.5-14.5); WHITE BLOOD COUNT 7.2 10^3/uL (4.0-10.0)
[2017-11-09 17:03] LABS: ALBUMIN 3.6 GM/DL (3.2-5.2); ALBUMIN/GLOBULIN RATIO 1.03 (1.00-1.93); ALKALINE PHOSPHATASE 98 U/L (45-117); ALT/SGPT 25 U/L (12-78); AMYLASE 24 U/L (25-115); ANION GAP 7 MEQ/L (8-16); AST/SGOT 14 U/L (7-37); BILIRUBIN,TOTAL 0.3 MG/DL (0.2-1.0); BLOOD UREA NITROGEN 16 MG/DL (7-18); CARBON DIOXIDE LEVEL 27 MEQ/L (21-32); CHLORIDE LEVEL 109 MEQ/L (98-107); CREATININE FOR GFR 0.62 MG/DL (0.55-1.30); GLOMERULAR FILTRATION RATE > 60.0 (>58); GLUCOSE, FASTING 90 MG/DL (70-100); LIPASE 65 U/L (73-393); SODIUM LEVEL 143 MEQ/L (136-145); TOTAL PROTEIN 7.1 GM/DL (6.4-8.2)
== END ==
LOC: M WUC 15:19
DX: E66.01 Morbid (severe) obesity due to excess calories (principal)
CPT/HCPCS: 82150

== ENCOUNTER → 2017-11-17 | Outpatient (CLI) | payer BC | LOC: M WHC 16:01 | DX: Z12.31 Encounter for screening mammogram for malignant neoplasm of breast (principal) | CPT/HCPCS: 77067 ==

== ENCOUNTER → 2018-01-12 | Outpatient (CLI) | payer BC ==
[2018-01-12 15:15] LABS: BASO % 0.4 % (0.0-1.0); EOS # 0.2 10^3/uL (0.0-0.50); EOS % 2.2 % (0.0-3.0); HEMATOCRIT 40.6 % (36.0-47.0); HEMOGLOBIN 12.9 g/dl (12.0-15.5); IMMATURE GRANULOCYTE % 0.1 % (0-3.0); LYMPH % 27.3 % (24.0-44.0); MEAN CORPUSCULAR HEMOGLOBIN 27.7 pg (27.0-33.0); MEAN CORPUSCULAR HGB CONC 31.8 g/dl (32.0-36.5); MEAN CORPUSCULAR VOLUME 87.1 fl (80.0-96.0); MONO # 0.6 10^3/uL (0.0-0.8); MONO % 8.3 % (0.0-5.0); NEUTROPHILS # 4.6 10^3/uL (1.8-7.7); NEUTROPHILS % 61.7 % (36.0-66.0); PLATELET COUNT, AUTOMATED 253 10^3/uL (150-450); RED BLOOD COUNT 4.66 10^6/uL (4.00-5.40); RED CELL DISTRIBUTION WIDTH 13.7 % (11.5-14.5); WHITE BLOOD COUNT 7.4 10^3/uL (4.0-10.0)
[2018-01-12 15:27] LABS: INR 0.95; PROTHROMBIN TIME 12.8 SECONDS (12.4-14.5)
[2018-01-12 15:28] LABS: PARTIAL THROMBOPLASTIN TIME 31.5 SECONDS (26.8-37.9)
[2018-01-12 15:48] LABS: TOTAL 25(OH) VITAMIN D 57.3 NG/ML (30.0-100.0)
[2018-01-12 15:49] LABS: VITAMIN B12 LEVEL 891 PG/ML (247-911)
[2018-01-12 16:26] LABS: ALBUMIN 3.6 GM/DL (3.2-5.2); ALBUMIN/GLOBULIN RATIO 1.03 (1.00-1.93); ALKALINE PHOSPHATASE 103 U/L (45-117); ALT/SGPT 29 U/L (12-78); ANION GAP 10 MEQ/L (8-16); AST/SGOT 14 U/L (7-37); BILIRUBIN,TOTAL 0.2 MG/DL (0.2-1.0); BLOOD UREA NITROGEN 17 MG/DL (7-18); CALCIUM LEVEL 8.9 MG/DL (8.5-10.1); CARBON DIOXIDE LEVEL 28 MEQ/L (21-32); CHLORIDE LEVEL 107 MEQ/L (98-107); CHOLESTEROL LEVEL 158 MG/DL (<200); CHOLESTEROL RISK RATIO 3.038 (<5); CREATININE FOR GFR 0.85 MG/DL (0.55-1.30); FERRITIN 40 NG/ML (8-252); FREE T4 0.91 NG/DL (0.76-1.46); GLOMERULAR FILTRATION RATE > 60.0 (>58); GLUCOSE, FASTING 91 MG/DL (70-100); HDL CHOLESTEROL 52 MG/DL (>40); IRON (FE) 43 UG/DL (50-170); NON-HDL-C 106 MG/DL; PERCENT SATURATION 15.6 % (13.2-45.0); POTASSIUM SERUM 4.3 MEQ/L (3.5-5.1); SODIUM LEVEL 145 MEQ/L (136-145); TOTAL IRON BINDING CAPACITY 275 UG/DL (250-450); TOTAL PROTEIN 7.1 GM/DL (6.4-8.2); TRIGLYCERIDES LEVEL 165 MG/DL (<150)
[2018-01-12 19:11] LABS: ESTIMATED AVERAGE GLUCOSE 117 MG/DL (60-110); HEMOGLOBIN A1c 5.7 %
[2018-01-16 10:24] LABS: VITAMIN B1 LEVEL WHOLE BLOOD 127.6 nmol/L (66.5-200.0)
== END ==
LOC: M LAB 14:08
DX: E66.01 Morbid (severe) obesity due to excess calories (principal); K91.2 Postsurgical malabsorption, not elsewhere classified
CPT/HCPCS: 83550

== ENCOUNTER → 2018-04-26 | Outpatient (CLI) | payer BC ==
[2018-04-26 16:06] LABS: FERRITIN 38 NG/ML (8-252); IRON (FE) 54 UG/DL (50-170); PERCENT SATURATION 18.1 % (13.2-45.0); TOTAL IRON BINDING CAPACITY 298 UG/DL (250-450)
== END ==
LOC: M LAB 15:14
DX: K91.2 Postsurgical malabsorption, not elsewhere classified (principal)
CPT/HCPCS: 83550

== ENCOUNTER → 2018-08-13 | Outpatient (CLI) | payer BC ==
[~2018-08-13] MED LIST changes: +LIDOCAINE 1% SDV INJ 30 ML VIAL As Ordered ONE; +MIDAZOLAM INJ 2 MG/2 ML VIAL (J2250) As Ordered ONE; +fentaNYL 100 MCG/2 ML INJECTION (J3010) As Ordered ONE
[2018-08-13 16:10] LABS: CSF TUBE# GLU TUBE 1; CSF TUBE# TP TUBE 1; GLUCOSE CSF 45 MG/DL (40-75); TOTAL PROTEIN,CSF 38 MG/DL (15-45)
[2018-08-13 16:21] LABS: APPEARANCE, CSF CLEAR (CLEAR); COLOR, CSF COLORLESS (COLORLESS); CSF TUBE# CELL CNT TUBE 3
--- NOTE | 2018-08-16 08:28 | REP ---
Partial lumbar spine series: 12 views . History: Injection procedure for pain. 70 seconds of fluoroscopy time is reported. Findings: A sequence of 12 fluoroscopically obtained last image hold procedural spot radiographs of the lumbar spine document needle position and contrast injection associated with injection procedure. Electronically Signed by Greg Carver MD 08/16/2018 08:19 A
--- NOTE | 2018-08-30 00:06 | ECWPNPC ---
PATIENT NAME: JOMAR CRISOSTOMO : 1970 GENDER: FEMALE VISIT DATE: 08/13/2018 DISCHARGE DATE: 08/13/18 1559 VISIT LOCKED DATE TIME: PHYSICIAN: LINDSEY DELUCA MD RESOURCE: LINDSEY DELUCA MD REASON FOR APPOINTMENT 1. SPINAL TAP HISTORY OF PRESENT ILLNESS HISTORY OF PRESENT ILLNESS: PAIN THE PATIENT DESCRIBES THE PAIN... FALL RISK SCREENING: SCREENING :NO FALLS IN THE PAST YEAR CURRENT MEDICATIONS TAKING VITAMIN B12 1000 TABLET 1 TABLET ORALLY ONCE A DAY, NOTES: 08/11/18 0800 TAKING ASPIRIN 81 MG TABLET CHEWABLE 1 TABLET ORALLY ONCE A DAY, NOTES: 08/11/18 08 TAKING FUROSEMIDE 20 MG TABLET 1 TABLET ORALLY ONCE A DAY, NOTES: 08/12/18 08 TAKING OMEPRAZOLE 40 MG CAPSULE DELAYED RELEASE 1 CAPSULE ORALLY ONCE A DAY, NOTES: 08/12/18 0800 TAKING MULTIVITAMIN ADULT - TABLET ORALLY , NOTES: 08/11/18 0800 NOT-TAKING CYCLOBENZAPRINE HCL 10 MG TABLET 1 TABLET ORALLY QHS PRN PAIN (FARIDA) NOT-TAKING PREDNISONE 5 MG TABLET 1 TABLET TAKE WITH FOOD ORALLY ONCE A DAY NOT-TAKING LIPITOR 40 MG TABLET 1 TABLET ORALLY ONCE A DAY NOT-TAKING METOPROLOL TARTRATE 50 MG TABLET 1 TABLET ORALLY TWICE A DAY NOT-TAKING ACETAZOLAMIDE ER 500 MG CAPSULE EXTENDED RELEASE 12 HOUR 1 CAPSULE ORALLY ONCE A DAY NOT-TAKING ASPIRIN EC 81 MG TABLET DELAYED RELEASE 1 TABLET ORALLY ONCE A DAY MEDICATION LIST REVIEWED AND RECONCILED WITH THE PATIENT PAST MEDICAL HISTORY THORACIC/LUMBAR DJD PSORIATIC ARTHRITIS BY 04/[address] PROCTOR /03/2014 MRI PELVIS/SACRUM NO SACRAL/COCCYGEAL LESION NOR EVIDENCE OF SACROILITIS OBESITY IMPAIRED FASTING GLUCOSE R FRONTAL CORTEX PUNCTATE FOCUS BY MRI BRAIN 06/23/14 C/W CVA ([facility], [place], [place]) FELT 2 HYPETENSIVE CRISIS C SECONDARY L FACIAL/LUE WEAKNESS REOSLVED <24H/06/2014 B CAROTID US C MINIMAL B ICA STENOSIS/ - PT GENE VARIANT, - LA/ACL AB, - FVL/ NORMAL PROTEIN C/S FUNCTION, ATIII FUNCTION, - ACL AB, -ANCA PROFILE, NORMAL B1, B6, VIT E, NORMAL SPEP//6/15/15 NORMAL CAROLYN (NO PFO/ASD)-ANTECOL "INFECTIOUS COLITIS" DX BY DR. 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 GARCIA/RAEANN B12 DEFICIENCY-07/2014 - IF AB PALPITATIONS-11/2014 30D EM S SYMPTOMS-LEBRON ALLERGIES N.K.D.A. SURGICAL HISTORY HYSTERECTOMY (HX DUB) PARTIAL-1 OVARY LEFT 03/20/2011 CERVICAL SPINE SURGERY-FUSION 04/06/2013 LP SHUNT 08/2014 LP SHUNT REMOVED 08/2017 GASTRIC BYPASS 08/2017 FAMILY HISTORY FATHER: ALIVE 71 YRS, RA, ULCERATIVE COLITIS DX 38, TOTAL COLECTOMY AT 40, PROSTATE CANCER MOTHER: ALIVE 68 YRS, BREAST CANCER - DX EARLY 60S SIBLINGS: ALIVE, BROTHER 1975 - HTN, UC SISTER JANEEN 1970 - RA, SISTER DEB 1974 - HEALTHY SON(S): ALIVE 22 YRS, NO KNOWN MEDICAL PROBLEMS DAUGHTER(S): ALIVE 31 YRS, EPILEPSY DX AT 6 YO PATERNAL GRAND FATHER: COLON CANCER DX IN 70 PATERNAL GRAND MOTHER: CVA, DM-2 PATERNAL AUNT: DM-2 1 BROTHER(S) , 2 SISTER(S) . 1 SON(S) , 1 DAUGHTER(S) - HEALTHY. GREAT GRAND FATHER HAD COLON CANCER. NO KNOWN H/O BREAST/OVARIAN CANCER. SOCIAL HISTORY GENERAL: TOBACCO USE ARE YOU A:: NEVER SMOKER . CAFFEINE 1 CUP COFFEE IN MORNING. MU-ISM NO MOSQUE BELIEFS THAT WOULD IMPACT HEALTH CARE. 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 DOMESTIC VIOLENCE NONE. OCCUPATION: WORKS AT [employer] DIET: REGULAR. EXERCISE: NO REGULAR EXERCISE. OTHERS AT HOME: SPOUSE,, CHILDREN. PAIN CLINIC PFS, CLERGY, PUBLIC HEALTH REFERRALS HAS THE PATIENT BEEN EDUCATED REGARDING HIS/HER PLAN OF CARE?YES HAS THE PATIENT BEEN EDUCATED REGARDING PAIN, THE RISK FOR PAIN, THE IMPORTANCE OF EFFECTIVE PAIN MANAGEMENT, AND THE PAIN ASSESSMENT PROCESS?YES HOUSING: OWNS HOME. ADVANCE DIRECTIVE ADVANCE DIRECTIVE DISCUSSED WITH PATIENT:YES DECLINED HOSPITALIZATION/MAJOR DIAGNOSTIC PROCEDURE CHILDBIRTH HYSTERECTOMY WITH POST OP ANEMIA/ REC BLOOD TRANSFUSIONS 03/20/2011 CERVIAL SPINE SURGERY 04/06-06/2013 L HEMISPHERIC TIA/CVA FELT 2 HYPERTENSIVE CRISIS RXED C HYDRALAZINE/LABETALOL PRN AND D/MARTITA ON LOPRESSOR 50 BID, ADMITTING HBPS 200/100, CTA CHEST S ANEURYSM/DISSECTION, L OVARIAN SOFT TISSUE DENSITY, 05/22- PSEDOTUMOR CEREBRI- S/P LP SHUNT 09/12/14-JOSE, NORMAL MRI BRAIN, MRA BRAIN C PROXIMAL L TRANSVERSE SINUS, B DISTAL TRANSVERSE AND B PROXIMAL SIGMOID SINUS STENOSES BUT NORMAL CSF FLOW STUDY 09/06- REVIEW OF SYSTEMS REVIEWED BY: PROVIDER: . CONSTITUTIONAL: ANY CHANGE IN YOUR MEDICAL CONDITION? YES, INTERCRANIAL HTN, PAPILEDEMA . CHILLS NO . FEVER NO . INFECTION: DO YOU HAVE NEW INFECTIONS? NO . DO YOU HAVE HISTORY OF MRSA? NO . MUSCULOSKELETAL: ANY NEW PATTERNS OF PAIN OR NUMBNESS? YES, HEADACHE ORBITAL PAIN SHOULDER PAIN . GASTROENTEROLOGY: ANY NEW CHANGE IN BOWEL CONTROL? NO . GENITOURINARY: ANY NEW CHANGE IN BLADDER CONTROL? NO . IS THERE A CHANCE YOU COULD BE ? NO . HEMATOLOGY/LYMPH: DO YOU TAKE ANY BLOOD THINNERS? (FOR EXAMPLE- COUMADIN, PLAVIX, AGGRENOX, PLATEL, PRADAXA, OR XARELTO) NO . WHEN WAS YOUR LAST DOSE? DATE: TIME: . NEUROLOGY: HAVE YOU FALLEN IN THE PAST 12 MONTHS? NO . ANY NEW EXTREMITY NUMBNESS OR WEAKNESS? NO . CARDIOLOGY: DO YOU HAVE A PACEMAKER OR DEFIBRILLATOR? NO . RESPIRATORY: HAVE YOU BEEN SICK IN THE PAST WEEK? NO . FEVER NO . FLU LIKE SYMPTOMS? NO . COUGH NO . INTEGUMENTARY: DO YOU HAVE ANY RASHES OR OPEN SORES? YES, PSORIASIS LIMBS . ALLERGIC/IMMUNO: ARE YOU ALLERGIC TO IV DYE? NO . ANY NEW ALLERGIES? NO . PSYCHIATRIC: DO YOU HAVE THOUGHTS OF HURTING YOURSELF OR SOMEONE ELSE? NO . ARE YOU ABUSED, NEGLECTED, OR IN AN UNSAFE ENVIRONMENT? NO . ENDOCRINOLOGY: ARE YOU DIABETIC? NO . OTHER: DO YOU NEED ANY PRESCRIPTIONS? NO . IF YES, PLEASE LIST: ____ . ANY NEW PROBLEMS WITH YOUR MEDICATIONS? NO . WHEN DID YOU LAST EAT? 08/12/18 1900 . WHEN DID YOU LAST DRINK? 08/13/18 1030 . WHAT DID YOU LAST DRINK? WATER . NAME OF PERSON DRIVING YOU HOME? SARINA . DO YOU HAVE ANY OTHER QUESTIONS OR CONCERNS NO . VITAL SIGNS WT 155.0 LBS, HT 63 IN, BMI 27.45 INDEX, BP 147/77 MM HG, HR 68 /MIN, RR 18 /MIN, TEMP 98.0 F, OXYGEN SAT % 99%, NA INITIALS AW 1254, REVIEWED BY: EM. ASSESSMENTS PSEUDOTUMOR CEREBRI - G93.2 (PRIMARY) TREATMENT PSEUDOTUMOR CEREBRI CLINICAL NOTES: SPINAL TAP WITH IV SEDATION- PLEASE SEE MEDITECH. PROCEDURE CODES 79310 MOD SED SAME PHYS/QHP 5/>YRS 58842 MOD SED SAME PHYS/QHP EA, UNITS: 2.00 55683 SPINAL FLUID TAP DIAGNOSTIC DISPOSITION & COMMUNICATION FOLLOW UP REASON: F/UP WITH NEUROLOGIST ELECTRONICALLY SIGNED BY LINDSEY DELUCA MD, MD ON 08/29/2018 AT 06:05 PM EST DISCLAIMER : THIS IS A VISIT SUMMARY EXTRACTED FROM THE [employer] CHART. IT IS NOT A COPY OF THE [employer] PROGRESS NOTE. RONIT
== END ==
LOC: M PAIN 13:00
PROVIDERS: ATTEND Anesthesiology
DX: G93.2 Benign intracranial hypertension (principal); I12.9 Hypertensive chronic kidney disease with stage 1 through stage 4 chronic kidney disease, or unspecified chronic kidney disease; N18.3 Chronic kidney disease, stage 3 (moderate); L40.52 Psoriatic arthritis mutilans; R73.01 Impaired fasting glucose; Z79.82 Long term (current) use of aspirin; Z79.899 Other long term (current) drug therapy; Z87.19 Personal history of other diseases of the digestive system; Z98.84 Bariatric surgery status
CPT/HCPCS: 36415; 62270; 77003; 82784; 82945; 83916; 84157; 87070; 87102; 87205; 87252; 87483; 88108; 88313; 89050; 99152; 99153; J2250; J3010

== ENCOUNTER → 2018-08-16 | Outpatient (CLI) | payer BC ==
[~2018-08-16] MED LIST changes: -LIDOCAINE 1% SDV INJ 30 ML VIAL As Ordered ONE; -MIDAZOLAM INJ 2 MG/2 ML VIAL (J2250) As Ordered ONE; -fentaNYL 100 MCG/2 ML INJECTION (J3010) As Ordered ONE
[2018-08-16 19:28] LABS: ALBUMIN 4.3 GM/DL (3.2-5.2); ALT/SGPT 33 U/L (12-78); BILIRUBIN,TOTAL 0.3 MG/DL (0.2-1.0); BLOOD UREA NITROGEN 21 MG/DL (7-18); CARBON DIOXIDE LEVEL 31 MEQ/L (21-32); CHLORIDE LEVEL 100 MEQ/L (98-107); CREATININE FOR GFR 0.71 MG/DL (0.55-1.30); GLOMERULAR FILTRATION RATE > 60.0 (>51); GLUCOSE, FASTING 81 MG/DL (70-100); POTASSIUM SERUM 4.3 MEQ/L (3.5-5.1); SODIUM LEVEL 138 MEQ/L (136-145); TOTAL PROTEIN 7.6 GM/DL (6.4-8.2)
== END ==
LOC: M SMT 15:27
PROVIDERS: ATTEND Psychiatry & Neurology Neurology
DX: R51 Headache (principal)

== ENCOUNTER → 2018-09-28 | Outpatient (REF) | payer BC ==
[2018-09-28 17:23] LABS: FOLATE 22.9 NG/ML; VITAMIN B12 LEVEL > 2000 PG/ML
[2018-10-02 14:09] LABS: VITAMIN B1 LEVEL WHOLE BLOOD 123.1 nmol/L (66.5-200.0); VITAMIN E(ALPHA TOCOPHEROL) 12.2 mg/L (7.0-25.1); VITAMIN E(GAMMA TOCOPHEROL) 0.9 mg/L (0.5-5.5)
== END ==
LOC: M LABNEURO 14:14
PROVIDERS: ATTEND Psychiatry & Neurology Neurology
DX: E53.8 Deficiency of other specified B group vitamins (principal); R41.3 Other amnesia

== ENCOUNTER → 2018-11-16 | Outpatient (CLI) | payer BC ==
[~2018-11-16] MED LIST changes: +METO1TAB63 PO; -METO25TAB PO; +VITA500T17 PO; -VITA500T53 PO
[2018-11-16 13:41] LABS: BASO % 0.5 % (0.0-1.0); EOS % 0.4 % (0.0-3.0); HEMATOCRIT 45.5 % (36.0-47.0); HEMOGLOBIN 14.7 g/dl (12.0-15.5); LYMPH # 3.1 10^3/uL (1.5-4.5); LYMPH % 36.3 % (24.0-44.0); MEAN CORPUSCULAR HGB CONC 32.3 g/dl (32.0-36.5); MEAN CORPUSCULAR VOLUME 92.9 fl (80.0-96.0); MONO # 0.8 10^3/uL (0.0-0.8); MONO % 9.3 % (0.0-5.0); NEUTROPHILS # 4.5 10^3/uL (1.8-7.7); NEUTROPHILS % 53.3 % (36.0-66.0); PLATELET COUNT, AUTOMATED 280 10^3/uL (150-450); WHITE BLOOD COUNT 8.5 10^3/uL (4.0-10.0)
[2018-11-16 13:59] LABS: ALBUMIN 3.9 GM/DL (3.2-5.2); ALT/SGPT 66 U/L (12-78); BILIRUBIN,TOTAL 0.3 MG/DL (0.2-1.0); BLOOD UREA NITROGEN 16 MG/DL (7-18); CALCIUM LEVEL 9.3 MG/DL (8.5-10.1); CARBON DIOXIDE LEVEL 31 MEQ/L (21-32); CHLORIDE LEVEL 107 MEQ/L (98-107); CHOLESTEROL LEVEL 207 MG/DL (<200); CREATININE FOR GFR 0.77 MG/DL (0.55-1.30); GLOMERULAR FILTRATION RATE > 60.0 (>51); GLUCOSE, FASTING 95 MG/DL (70-100); HDL CHOLESTEROL 79 MG/DL (>40); LDL CHOLESTEROL 105 MG/DL (<100); NON-HDL-C 128 MG/DL; POTASSIUM SERUM 3.8 MEQ/L (3.5-5.1); SODIUM LEVEL 143 MEQ/L (136-145); TOTAL PROTEIN 7.2 GM/DL (6.4-8.2); TRIGLYCERIDES LEVEL 116 MG/DL (<150)
[2018-11-16 14:03] LABS: MALB URINE SIEMENS 11.1 MG/L; MAU/CREAT RATIO 4.7 MCG/MG (0.0-30.0)
[2018-11-16 14:32] LABS: HEMOGLOBIN A1c 5.7 %
== END ==
LOC: M WUC 08:39
PROVIDERS: ATTEND Family Medicine
DX: E11.9 Type 2 diabetes mellitus without complications (principal)

== ENCOUNTER → 2018-11-16 | Outpatient (REF) | payer BC | LOC: M SFHCPLAZ 10:58 | PROVIDERS: ATTEND Internal Medicine Rheumatology | DX: L40.50 Arthropathic psoriasis, unspecified (principal) ==

== ENCOUNTER → 2018-11-16 | Outpatient (CLI) | payer BC ==
[2018-11-16 13:42] LABS: BASO % 0.5 % (0.0-1.0); EOS % 0.3 % (0.0-3.0); HEMOGLOBIN 13.9 g/dl (12.0-15.5); LYMPH # 3.3 10^3/uL (1.5-4.5); LYMPH % 37.6 % (24.0-44.0); MEAN CORPUSCULAR HEMOGLOBIN 29.7 pg (27.0-33.0); MEAN CORPUSCULAR HGB CONC 32.3 g/dl (32.0-36.5); MEAN CORPUSCULAR VOLUME 91.9 fl (80.0-96.0); MONO # 0.8 10^3/uL (0.0-0.8); MONO % 8.8 % (0.0-5.0); NEUTROPHILS # 4.6 10^3/uL (1.8-7.7); NEUTROPHILS % 52.6 % (36.0-66.0); PLATELET COUNT, AUTOMATED 270 10^3/uL (150-450); RED BLOOD COUNT 4.68 10^6/uL (4.00-5.40); WHITE BLOOD COUNT 8.7 10^3/uL (4.0-10.0)
[2018-11-16 13:56] LABS: ALBUMIN 3.5 GM/DL (3.2-5.2); ALT/SGPT 63 U/L (12-78); BILIRUBIN,TOTAL 0.3 MG/DL (0.2-1.0); BLOOD UREA NITROGEN 16 MG/DL (7-18); C REACTIVE PROTEIN QUANTITATIV < 0.30 MG/DL (0.00-0.30); CALCIUM LEVEL 8.8 MG/DL (8.5-10.1); CARBON DIOXIDE LEVEL 30 MEQ/L (21-32); CHLORIDE LEVEL 106 MEQ/L (98-107); CHOLESTEROL LEVEL 182 MG/DL (< 200); CPK CREATINE PHOSPHOKINASE 44 U/L (26-192); CREATININE FOR GFR 0.74 MG/DL (0.55-1.30); GLOMERULAR FILTRATION RATE > 60.0 (>51); GLUCOSE, FASTING 130 MG/DL (70-100); LDH LACTATE DEHYDROGENASE 131 U/L (84-246); PHOSPHORUS LEVEL 3.5 MG/DL (2.5-4.9); POTASSIUM SERUM 3.6 MEQ/L (3.5-5.1); RHEUMATOID FACTOR QUANT < 10.0 IU/ML (<15.0); SODIUM LEVEL 143 MEQ/L (136-145); TRIGLYCERIDES LEVEL 122 MG/DL (<150)
--- NOTE | 2018-11-16 14:05 | REP ---
BILATERAL HAND SERIES: HISTORY: Psoriatic arthritis. No comparison study. FINDINGS: Four views of each hand are obtained. Overall mineralization pattern is normal. Soft tissues are unremarkable on the right. There is minimal spurring at the IP joint of the thumb and the DIP joint of the long finger on the right. Joint spaces are preserved. No erosive changes seen. No soft tissue calcification is observed. On the left, there is a subcortical cyst in the capitate bone at the wrist. No erosive changes seen. Minimal spurring is seen at the DIP joints of the long and small finger and ring finger. IMPRESSION: No erosive changes seen. Subcortical cyst noted in the capitate incidentally on the left side. Minimal osteoarthritic spurring. Electronically Signed by Greg Carver MD 11/16/2018 08:41 P
[2018-11-16 14:44] LABS: ERYTHROCYTE SEDIMENTATION RATE 3 mm/hr (0-30)
== END ==
LOC: M WUC 11:29
PROVIDERS: ATTEND Internal Medicine Rheumatology
DX: L40.50 Arthropathic psoriasis, unspecified (principal); M25.741 Osteophyte, right hand; M25.742 Osteophyte, left hand; M85.442 Solitary bone cyst, left hand

== ENCOUNTER → 2018-11-16 | Outpatient (CLI) | payer BC ==
[2018-11-16 13:41] LABS: HEMATOCRIT 45.1 % (36.0-47.0); HEMOGLOBIN 14.4 g/dl (12.0-15.5); MEAN CORPUSCULAR HEMOGLOBIN 29.3 pg (27.0-33.0); MEAN CORPUSCULAR HGB CONC 31.9 g/dl (32.0-36.5); MEAN CORPUSCULAR VOLUME 91.9 fl (80.0-96.0); PLATELET COUNT, AUTOMATED 280 10^3/uL (150-450); RED BLOOD COUNT 4.91 10^6/uL (4.00-5.40); WHITE BLOOD COUNT 8.6 10^3/uL (4.0-10.0)
[2018-11-16 14:00] LABS: ALBUMIN 3.6 GM/DL (3.2-5.2); ALT/SGPT 64 U/L (12-78); BILIRUBIN,TOTAL 0.4 MG/DL (0.2-1.0); BLOOD UREA NITROGEN 16 MG/DL (7-18); CALCIUM LEVEL 9.2 MG/DL (8.5-10.1); CARBON DIOXIDE LEVEL 31 MEQ/L (21-32); CHLORIDE LEVEL 107 MEQ/L (98-107); CREATININE FOR GFR 0.74 MG/DL (0.55-1.30); FERRITIN 61 NG/ML (8-252); GLOMERULAR FILTRATION RATE > 60.0 (>51); GLUCOSE, FASTING 93 MG/DL (70-100); IRON (FE) 121 UG/DL (50-170); PERCENT SATURATION 45.7 % (13.2-45.0); SODIUM LEVEL 144 MEQ/L (136-145); TOTAL IRON BINDING CAPACITY 265 UG/DL (250-450); TOTAL PROTEIN 7.2 GM/DL (6.4-8.2)
== END ==
LOC: M WUC 08:42
PROVIDERS: ATTEND Registered Nurse
DX: K91.2 Postsurgical malabsorption, not elsewhere classified (principal)

== ENCOUNTER → 2019-04-04 | Outpatient (CLI) | payer BC ==
[2019-04-04 17:10] LABS: ALBUMIN 3.7 GM/DL (3.2-5.2); ALT/SGPT 24 U/L (12-78); BILIRUBIN,TOTAL 0.3 MG/DL (0.2-1.0); BLOOD UREA NITROGEN 18 MG/DL (7-18); CALCIUM LEVEL 8.8 MG/DL (8.5-10.1); CARBON DIOXIDE LEVEL 30 MEQ/L (21-32); CHLORIDE LEVEL 107 MEQ/L (98-107); CREATININE FOR GFR 0.83 MG/DL (0.55-1.30); FERRITIN 20 NG/ML (8-252); GLOMERULAR FILTRATION RATE > 60.0 (>51); GLUCOSE, FASTING 150 MG/DL (70-100); IRON (FE) 90 UG/DL (50-170); POTASSIUM SERUM 4.4 MEQ/L (3.5-5.1); SODIUM LEVEL 142 MEQ/L (136-145); TOTAL IRON BINDING CAPACITY 346 UG/DL (250-450); TOTAL PROTEIN 7.2 GM/DL (6.4-8.2)
[2019-04-04 17:18] LABS: TOTAL 25(OH) VITAMIN D 24.9 NG/ML (30.0-100.0); VITAMIN B12 LEVEL 1140 PG/ML (247-911)
[2019-04-04 17:22] LABS: HEMATOCRIT 42.9 % (36.0-47.0); HEMOGLOBIN 13.7 g/dl (12.0-15.5); MEAN CORPUSCULAR HEMOGLOBIN 29.6 pg (27.0-33.0); MEAN CORPUSCULAR HGB CONC 31.9 g/dl (32.0-36.5); MEAN CORPUSCULAR VOLUME 92.7 fl (80.0-96.0); PLATELET COUNT, AUTOMATED 262 10^3/uL (150-450); RED BLOOD COUNT 4.63 10^6/uL (4.00-5.40); WHITE BLOOD COUNT 7.2 10^3/uL (4.0-10.0)
== END ==
LOC: M WUC 12:33
PROVIDERS: ATTEND Registered Nurse
DX: K91.2 Postsurgical malabsorption, not elsewhere classified (principal)

== ENCOUNTER → 2019-08-23 | Outpatient (CLI) | payer BC ==
[2019-08-23 13:53] LABS: BLOOD UREA NITROGEN 14 MG/DL (7-18); CALCIUM LEVEL 8.9 MG/DL (8.5-10.1); CARBON DIOXIDE LEVEL 25 MEQ/L (21-32); CHLORIDE LEVEL 113 MEQ/L (98-107); CREATININE FOR GFR 0.73 MG/DL (0.55-1.30); GLOMERULAR FILTRATION RATE > 60.0 (>51); GLUCOSE, FASTING 86 MG/DL (70-100); POTASSIUM SERUM 4.3 MEQ/L (3.5-5.1); SODIUM LEVEL 144 MEQ/L (136-145)
== END ==
LOC: M WUC 09:59
DX: I10 Essential (primary) hypertension (principal); I49.3 Ventricular premature depolarization

== ENCOUNTER → 2019-10-14 | Outpatient (CLI) | payer BC ==
[2019-10-14 12:46] LABS: HEMATOCRIT 44.5 % (36.0-47.0); HEMOGLOBIN 13.9 g/dl (12.0-15.5); MEAN CORPUSCULAR HEMOGLOBIN 29.3 pg (27.0-33.0); MEAN CORPUSCULAR HGB CONC 31.2 g/dl (32.0-36.5); MEAN CORPUSCULAR VOLUME 93.7 fl (80.0-96.0); PLATELET COUNT, AUTOMATED 272 10^3/uL (150-450); RED BLOOD COUNT 4.75 10^6/uL (4.00-5.40); WHITE BLOOD COUNT 6.1 10^3/uL (4.0-10.0)
[2019-10-14 12:57] LABS: ALBUMIN 3.7 GM/DL (3.2-5.2); ALT/SGPT 22 U/L (12-78); BILIRUBIN,TOTAL 0.4 MG/DL (0.2-1.0); BLOOD UREA NITROGEN 19 MG/DL (7-18); CALCIUM LEVEL 9.1 MG/DL (8.5-10.1); CARBON DIOXIDE LEVEL 26 MEQ/L (21-32); CHLORIDE LEVEL 111 MEQ/L (98-107); CHOLESTEROL LEVEL 195 MG/DL (<200); CHOLESTEROL RISK RATIO 2.671 (<5); CREATININE FOR GFR 0.77 MG/DL (0.55-1.30); FERRITIN 24 NG/ML (8-252); FREE T4 0.94 NG/DL (0.76-1.46); GLOMERULAR FILTRATION RATE > 60.0 (>51); GLUCOSE, FASTING 86 MG/DL (70-100); HDL CHOLESTEROL 73 MG/DL (>40); IRON (FE) 88 UG/DL (50-170); LDL CHOLESTEROL 100 MG/DL (<100); NON-HDL-C 122 MG/DL; PERCENT SATURATION 25.8 % (13.2-45.0); SODIUM LEVEL 140 MEQ/L (136-145); TOTAL 25(OH) VITAMIN D 35.9 NG/ML (30.0-100.0); TOTAL IRON BINDING CAPACITY 341 UG/DL (250-450); TRIGLYCERIDES LEVEL 111 MG/DL (<150); VITAMIN B12 LEVEL 1519 PG/ML (247-911)
[2019-10-14 13:25] LABS: HEMOGLOBIN A1c 5.3 %
== END ==
LOC: M WUC 08:54
PROVIDERS: ATTEND Surgery
DX: K91.2 Postsurgical malabsorption, not elsewhere classified (principal)

== ENCOUNTER → 2019-10-14 | Outpatient (CLI) | payer BC ==
[2019-10-14 12:46] LABS: BASO % 0.5 % (0.0-1.0); EOS # 0.1 10^3/uL (0.0-0.5); EOS % 1.8 % (0.0-3.0); HEMATOCRIT 45.3 % (36.0-47.0); HEMOGLOBIN 14.3 g/dl (12.0-15.5); LYMPH % 33.4 % (24.0-44.0); MEAN CORPUSCULAR HEMOGLOBIN 29.6 pg (27.0-33.0); MEAN CORPUSCULAR HGB CONC 31.6 g/dl (32.0-36.5); MEAN CORPUSCULAR VOLUME 93.8 fl (80.0-96.0); MONO # 0.6 10^3/uL (0.0-0.8); MONO % 9.1 % (0.0-5.0); NEUTROPHILS # 3.3 10^3/uL (1.5-8.5); NEUTROPHILS % 54.9 % (36.0-66.0); PLATELET COUNT, AUTOMATED 291 10^3/uL (150-450); RED BLOOD COUNT 4.83 10^6/uL (4.00-5.40); WHITE BLOOD COUNT 6.1 10^3/uL (4.0-10.0)
[2019-10-14 12:53] LABS: ALBUMIN 3.8 GM/DL (3.2-5.2); ALT/SGPT 22 U/L (12-78); BILIRUBIN,TOTAL 0.4 MG/DL (0.2-1.0); BLOOD UREA NITROGEN 18 MG/DL (7-18); CALCIUM LEVEL 8.9 MG/DL (8.5-10.1); CARBON DIOXIDE LEVEL 26 MEQ/L (21-32); CHLORIDE LEVEL 112 MEQ/L (98-107); CHOLESTEROL LEVEL 202 MG/DL (<200); CHOLESTEROL RISK RATIO 2.693 (<5); CREATININE FOR GFR 0.79 MG/DL (0.55-1.30); GLOMERULAR FILTRATION RATE > 60.0 (>51); GLUCOSE, FASTING 85 MG/DL (70-100); HDL CHOLESTEROL 75 MG/DL (>40); LDL CHOLESTEROL 104 MG/DL (<100); NON-HDL-C 127 MG/DL; SODIUM LEVEL 141 MEQ/L (136-145); TOTAL PROTEIN 7.2 GM/DL (6.4-8.2); TRIGLYCERIDES LEVEL 113 MG/DL (<150)
[2019-10-14 13:25] LABS: HEMOGLOBIN A1c 5.3 %; MALB URINE SIEMENS 7.5 MG/L; MAU/CREAT RATIO 4.4 MCG/MG (0.0-30.0)
== END ==
LOC: M WUC 08:59
PROVIDERS: ATTEND Family Medicine
DX: E11.9 Type 2 diabetes mellitus without complications (principal)

== ENCOUNTER → 2019-12-13 | Outpatient (CLI) | payer BC ==
--- NOTE | 2019-12-13 13:24 | REPMRS ---
Patient History The patient states she has not had a clinical breast exam in over a year. Family history of colorectal cancer at age 50 or over in paternal aunt, breast cancer at age 60 in mother, breast cancer under age 50 in maternal grandmother, colorectal cancer at age 50 or over in paternal grandfather, breast cancer at age 50 or over in maternal aunt. 3D TOMOSYNTHESIS WAS PERFORMED. The [facility] lifetime risk for breast cancer is 19.6%. VOLPARA DENSITY SCORE B. Digital Woman Screen Mammo: December 13, 2019 - Exam #: [id number] Bilateral CC and MLO view(s) were taken. Technologist: Mary Mohamud, Technologist Prior study comparison: November 17, 2017, digital woman screen mammo performed at [facility]. June 16, 2016, digital woman screen mammo performed at [facility]. FINDINGS: The breast tissue is heterogeneously dense. This may lower the sensitivity of mammography. There has been no change in the appearance of the mammogram from the prior studies. There is a moderate amount of residual fibroglandular tissue which is fairly symmetric. There is no interval development of dominant mass, areas of architectural distortion, or clustered microcalcification typical of malignancy. Assessment: BI-RADS/ACR category 1 mammogram. Negative Mammogram. Recommendation Routine screening mammogram in 1 year (for women over age 40). This mammogram was interpreted with the aid of an FDA-approved computer-aided dectection system. Electronically Signed By: Luisito Dong MD 12/13/19 8035
== END ==
LOC: M WHC 12:23
PROVIDERS: ATTEND Family Medicine
DX: Z12.31 Encounter for screening mammogram for malignant neoplasm of breast (principal); Z80.0 Family history of malignant neoplasm of digestive organs; Z80.3 Family history of malignant neoplasm of breast

== ENCOUNTER → 2020-04-04 | Outpatient (CLI) | payer BC ==
[2020-04-06 18:09] LABS: Lyme Disease IgG/IgM Antibodie <0.91 ISR (0.00-0.90); Lyme Disease IgM Ab Quantitati <0.80 index (0.00-0.79)
== END ==
LOC: M WUC 12:29
PROVIDERS: ATTEND Family Medicine
DX: R21 Rash and other nonspecific skin eruption (principal)

== ENCOUNTER → 2020-07-02 | Outpatient (CLI) | payer BC | LOC: M LABSMTC 08:29 | PROVIDERS: ATTEND Pediatrics | DX: Z20.828 Contact with and (suspected) exposure to other viral communicable diseases (principal) ==

== ENCOUNTER → 2020-07-31 | Outpatient (CLI) | payer SELFPAY | LOC: M LABSMTC 13:50 | PROVIDERS: ATTEND Pediatrics | DX: Z20.822 Contact with and (suspected) exposure to COVID-19 (principal) ==

== ENCOUNTER → 2020-08-06 | Outpatient (CLI) | payer BC | LOC: M LABSMTC 10:24 | PROVIDERS: ATTEND Family Medicine | DX: Z20.822 Contact with and (suspected) exposure to COVID-19 (principal) ==

== ENCOUNTER → 2020-08-30 | Outpatient (REF) | payer BC ==
[2020-08-30 12:57] LABS: BASO % 0.4 % (0.0-1.0); EOS # 0.2 10^3/uL (0.0-0.5); EOS % 1.8 % (0.0-3.0); HEMATOCRIT 42.7 % (36.0-47.0); HEMOGLOBIN 13.3 g/dl (12.0-15.5); LYMPH # 1.7 10^3/uL (1.5-5.0); LYMPH % 20.6 % (24.0-44.0); MEAN CORPUSCULAR HEMOGLOBIN 28.7 pg (27.0-33.0); MEAN CORPUSCULAR HGB CONC 31.1 g/dl (32.0-36.5); MONO # 0.7 10^3/uL (0.0-0.8); MONO % 8.4 % (0.0-5.0); NEUTROPHILS # 5.7 10^3/uL (1.5-8.5); NEUTROPHILS % 68.3 % (36.0-66.0); PLATELET COUNT, AUTOMATED 281 10^3/uL (150-450); RED BLOOD COUNT 4.64 10^6/uL (4.00-5.40); WHITE BLOOD COUNT 8.3 10^3/uL (4.0-10.0)
[2020-08-30 13:25] LABS: ALT/SGPT 28 U/L (12-78); BILIRUBIN,TOTAL 0.2 MG/DL (0.2-1.0); BLOOD UREA NITROGEN 19 MG/DL (7-18); C REACTIVE PROTEIN QUANTITATIV 0.41 MG/DL (0.00-0.30); CALCIUM LEVEL 9.6 MG/DL (8.5-10.1); CARBON DIOXIDE LEVEL 24 MEQ/L (21-32); CHLORIDE LEVEL 110 MEQ/L (98-107); CREATININE FOR GFR 0.66 MG/DL (0.55-1.30); GLOMERULAR FILTRATION RATE > 60.0 (>51); GLUCOSE, FASTING 112 MG/DL (70-100); SODIUM LEVEL 142 MEQ/L (136-145); TOTAL PROTEIN 7.4 GM/DL (6.4-8.2)
[2020-08-30 14:09] LABS: ERYTHROCYTE SEDIMENTATION RATE 9 mm/hr (0-30)
== END ==
LOC: M SFHCRHEU 10:06
PROVIDERS: ATTEND Internal Medicine
DX: L40.50 Arthropathic psoriasis, unspecified (principal)

== ENCOUNTER → 2020-09-21 | Outpatient (REF) | payer BC ==
[2020-09-21 13:56] LABS: HEPATITIS B SURFACE ANTIGEN NEGATIVE (NEGATIVE); HEPATITIS C VIRUS ABY INDEX < 0.0 INDEX (<0.8)
== END ==
LOC: M SFHCRHEU 09:44
PROVIDERS: ATTEND Internal Medicine
DX: L40.50 Arthropathic psoriasis, unspecified (principal)

== ENCOUNTER → 2022-08-19 | Outpatient (REF) | payer OTHER, BC ==
[2022-08-19 10:07] LABS: BASO # 0.1 10^3/uL (0.0-0.2); BASO % 0.6 % (0.0-1.0); EOS # 0.3 10^3/uL (0.0-0.5); EOS % 3.8 % (0.0-3.0); HEMATOCRIT 45.1 % (36.0-47.0); HEMOGLOBIN 14.1 g/dl (12.0-15.5); LYMPH # 2.8 10^3/uL (1.5-5.0); LYMPH % 33.7 % (24.0-44.0); MEAN CORPUSCULAR HEMOGLOBIN 29.9 pg (27.0-33.0); MEAN CORPUSCULAR HGB CONC 31.3 g/dl (32.0-36.5); MEAN CORPUSCULAR VOLUME 95.6 fl (80.0-96.0); MONO # 0.8 10^3/uL (0.0-0.8); MONO % 9.3 % (2.0-8.0); NEUTROPHILS # 4.3 10^3/uL (1.5-8.5); NEUTROPHILS % 52.2 % (36.0-66.0); PLATELET COUNT, AUTOMATED 346 10^3/uL (150-450); RED BLOOD COUNT 4.72 10^6/uL (4.00-5.40); WHITE BLOOD COUNT 8.2 10^3/uL (4.0-10.0)
[2022-08-19 10:21] LABS: HEMOGLOBIN A1c 5.1 % (4.0-6.0)
[2022-08-19 10:41] LABS: IRON (FE) 95 UG/DL (50-170); TOTAL 25(OH) VITAMIN D 34.3 NG/ML (20.0-100.0); VITAMIN B12 LEVEL 1951 PG/ML (211-911)
[2022-08-19 10:42] LABS: FOLATE > 24.0 NG/ML (>5.4); PERCENT SATURATION 24.4 % (13.2-45.0); TOTAL IRON BINDING CAPACITY 389 UG/DL (250-425)
[2022-08-19 10:43] LABS: ALBUMIN 3.9 G/DL (3.2-5.2); ALKALINE PHOSPHATASE 106 U/L (46-116); ALT/SGPT 24 U/L (7.0-40); AST/SGOT 23 U/L (<34); BILIRUBIN,TOTAL 0.5 MG/DL (0.3-1.2); BLOOD UREA NITROGEN 20 MG/DL (9-23); CALCIUM LEVEL 9.6 MG/DL (8.5-10.1); CARBON DIOXIDE LEVEL 28 MMOL/L (20-31); CHLORIDE LEVEL 103 MMOL/L (98-107); CHOLESTEROL LEVEL 210 MG/DL (<200); CHOLESTEROL RISK RATIO 2.33 (<5); CREATININE FOR GFR 0.74 MG/DL (0.55-1.30); GLOMERULAR FILTRATION RATE > 60.0 (>51); GLUCOSE, FASTING 119 MG/DL (60-100); LDL CHOLESTEROL 90.2 MG/DL (<100); NON-HDL-C 120 MG/DL; POTASSIUM SERUM 4.2 MMOL/L (3.5-5.1); SODIUM LEVEL 139 MMOL/L (136-145); TOTAL PROTEIN 7.3 G/DL (5.7-8.2); TRIGLYCERIDES LEVEL 149 MG/DL (<150)
== END ==
LOC: M LABWUC 09:33
PROVIDERS: ATTEND Family Medicine
DX: I10 Essential (primary) hypertension (principal); Z98.84 Bariatric surgery status

== ENCOUNTER → 2023-08-04 | Outpatient (CLI) | payer BC, OTHER ==
[2023-08-04 12:51] LABS: BASO % 0.6 % (0.0-1.0); EOS # 0.2 10^3/uL (0.0-0.5); EOS % 2.2 % (0.0-3.0); HEMATOCRIT 42.7 % (36.0-47.0); HEMOGLOBIN 13.3 g/dl (12.0-15.5); LYMPH # 2.5 10^3/uL (1.5-5.0); LYMPH % 36.2 % (24.0-44.0); MEAN CORPUSCULAR HEMOGLOBIN 28.9 pg (27.0-33.0); MEAN CORPUSCULAR HGB CONC 31.1 g/dl (32.0-36.5); MEAN CORPUSCULAR VOLUME 92.6 fl (80.0-96.0); MONO # 0.7 10^3/uL (0.0-0.8); MONO % 9.9 % (2.0-8.0); NEUTROPHILS # 3.4 10^3/uL (1.5-8.5); PLATELET COUNT, AUTOMATED 350 10^3/uL (150-450); RED BLOOD COUNT 4.61 10^6/uL (4.00-5.40); WHITE BLOOD COUNT 6.8 10^3/uL (4.0-10.0)
[2023-08-04 13:18] LABS: ALBUMIN 3.5 G/DL (3.2-5.2); ALKALINE PHOSPHATASE 111 U/L (46-116); ALT/SGPT 66 U/L (7.0-40); AST/SGOT 56 U/L (<34); BILIRUBIN,TOTAL 0.3 MG/DL (0.3-1.2); BLOOD UREA NITROGEN 19 MG/DL (9-23); CARBON DIOXIDE LEVEL 31 MMOL/L (20-31); CHLORIDE LEVEL 103 MMOL/L (98-107); CHOLESTEROL LEVEL 200 MG/DL (<200); CHOLESTEROL RISK RATIO 2.95 (<5); CREATININE FOR GFR 0.62 MG/DL (0.55-1.30); GLOMERULAR FILTRATION RATE > 60.0 (>51); GLUCOSE, FASTING 127 MG/DL (60-100); HDL CHOLESTEROL 67.7 MG/DL (>40); LDL CHOLESTEROL 101.5 MG/DL (<100); NON-HDL-C 132.3 MG/DL; POTASSIUM SERUM 4.3 MMOL/L (3.5-5.1); SODIUM LEVEL 139 MMOL/L (136-145); TOTAL PROTEIN 6.8 G/DL (5.7-8.2); TRIGLYCERIDES LEVEL 154 MG/DL (<150)
== END ==
LOC: M WUC 08:50
PROVIDERS: ATTEND Family Medicine
DX: I10 Essential (primary) hypertension (principal)

== ENCOUNTER → 2023-12-29 | Outpatient (CLI) | payer OTHER ==
[2023-12-29 11:00] LABS: HEMOGLOBIN A1c 5.8 % (4.0-6.0)
== END ==
LOC: M WUC 08:38
PROVIDERS: ATTEND Family Medicine
DX: R73.01 Impaired fasting glucose (principal)

== ENCOUNTER → 2024-09-22 | Outpatient (CLI) | payer OTHER ==
[2024-09-22 12:40] LABS: BASO % 0.3 % (0.0-1.0); EOS # 0.2 10^3/uL (0.0-0.5); EOS % 1.5 % (0.0-3.0); HEMATOCRIT 44.2 % (36.0-47.0); HEMOGLOBIN 14.2 g/dl (12.0-15.5); LYMPH # 2.8 10^3/uL (1.5-5.0); LYMPH % 25.9 % (24.0-44.0); MEAN CORPUSCULAR HGB CONC 32.1 g/dl (32.0-36.5); MEAN CORPUSCULAR VOLUME 90.2 fl (80.0-96.0); MONO # 0.9 10^3/uL (0.0-0.8); NEUTROPHILS # 6.8 10^3/uL (1.5-8.5); NEUTROPHILS % 63.8 % (36.0-66.0); PLATELET COUNT, AUTOMATED 482 10^3/uL (150-450); WHITE BLOOD COUNT 10.6 10^3/uL (4.0-10.0)
[2024-09-22 12:42] LABS: IRON (FE) 103 UG/DL (50-170)
[2024-09-22 12:43] LABS: ALBUMIN 3.6 G/DL (3.2-5.2); ALKALINE PHOSPHATASE 116 U/L (35-104); ALT/SGPT 29 U/L (7.0-40); AST/SGOT 15 U/L (<34); BILIRUBIN,TOTAL 0.5 MG/DL (0.3-1.2); BLOOD UREA NITROGEN 15 MG/DL (9-23); CALCIUM LEVEL 9.5 MG/DL (8.5-10.1); CARBON DIOXIDE LEVEL 30 MMOL/L (20-31); CHLORIDE LEVEL 102 MMOL/L (98-107); CHOLESTEROL LEVEL 253 MG/DL (<200); CHOLESTEROL RISK RATIO 3.09 (<5); GLOMERULAR FILTRATION RATE > 60.0 (>51); GLUCOSE, FASTING 142 MG/DL (60-100); HDL CHOLESTEROL 81.8 MG/DL (>40); LDL CHOLESTEROL 107.4 MG/DL (<100); NON-HDL-C 171.2 MG/DL; POTASSIUM SERUM 4.4 MMOL/L (3.5-5.1); SODIUM LEVEL 140 MMOL/L (136-145); TOTAL IRON BINDING CAPACITY 332 UG/DL (250-425); TOTAL PROTEIN 7.2 G/DL (5.7-8.2); TRIGLYCERIDES LEVEL 319 MG/DL (<150)
[2024-09-22 12:47] LABS: FOLATE > 24.0 NG/ML (>5.4)
[2024-09-22 12:48] LABS: TOTAL 25(OH) VITAMIN D 29.2 NG/ML (20.0-100.0)
[2024-09-22 12:56] LABS: VITAMIN B12 LEVEL > 2000 PG/ML (211-911)
== END ==
LOC: M WUC 09:33
PROVIDERS: ATTEND Family Medicine
DX: I10 Essential (primary) hypertension (principal); E55.9 Vitamin D deficiency, unspecified; Z98.84 Bariatric surgery status

== ENCOUNTER → 2024-09-28 | Outpatient (REF) | payer OTHER ==
[2024-09-28 15:09] LABS: HEMOGLOBIN A1c 6.2 % (4.0-6.0)
== END ==
LOC: M LAB REF 13:03
PROVIDERS: ATTEND Family Medicine
DX: R73.01 Impaired fasting glucose (principal)

== ENCOUNTER 2024-10-11 06:54 | Observation (INO) | payer OTHER ==
[2024-10-11] VITALS (7 sets, daily range): BP systolic 117–139; BP diastolic 65–79; TEMP 97.2–97.9; O2SAT 90–94
[~2024-10-11] VITALS: Ht 154.9 cm; Wt 83.8 kg
[~2024-10-11 06:54] MED LIST changes: +AMLO1TAB25 PO; +APRE30TA3 PO; +ASPI81TA26 PO; +HYDR-3490 PO; +LIDOCAINE 2% 100MG/5ML SDV (FOR ANES.) As Ordered ONE; +LOSA100T46 PO; +NORT10CA2 PO; +OMEP1CAP73 PO; +ONDANSETRON 4MG 2ML VIAL As Ordered ONE; +ROCURONIUM BROMIDE 50MG/5ML VIAL As Ordered ONE; +SUGAMMADEX SODIUM 500 MG/5 ML VIAL (BRIDION) As Ordered ONE; +dexmedeTOMIDine (4MCG/ML)200MCG/50ML BTL (PRECEDEX) As Ordered ONE; +propofoL 200 MG/20 ML VIAL As Ordered ONE
[2024-10-11] MEDS: LR 1,000 ML IV SCH ×3 (07:48→14:25)
[2024-10-11] MEDS ORDERED: MIDAZOLAM INJ 2MG/2ML VIAL As Ordered ONE (08:09)
[2024-10-11] MEDS ORDERED: fentaNYL 250 MCG/5 ML INJECTION As Ordered ONE (08:09)
[2024-10-11] MEDS: ceFAZolin SOD 2 GM IV ONCE IV ONE (08:50)
[2024-10-11] MEDS: HEPARIN SOD (PORCINE) 5000UNITS/ML 1ML VIAL/SYRINGE SQ ONE (09:10)
[2024-10-11] MEDS ORDERED: ACETAMINOPHEN 1000MG/100ML IV BAG As Ordered ONE (09:11)
[2024-10-11] MEDS ORDERED: HYDROmorphone HCL 2MG/ML 1ML VIAL As Ordered ONE (09:27)
[2024-10-11] MEDS: BUPivacaine LIPOSOME/PF 266MG 20ML VIAL (13.3MG/ML)(EXPAREL) As Ordered ONE (10:01)
[2024-10-11] MEDS: GENTAMICIN SULF 80MG/2ML VIAL As Ordered ONE (10:01)
[2024-10-11] MEDS ORDERED: fentaNYL 100 MCG/2 ML INJECTION IV PRN (12:10)
[2024-10-11] MEDS ORDERED: ACETAMINOPHEN 325 MG TAB PO PRN (12:50)
[2024-10-11] MEDS ORDERED: ONDANSETRON 4MG 2ML VIAL IV PRN (12:50)
[2024-10-11] MEDS: oxyCODONE 5MG TAB PO PRN (13:26)
[2024-10-11] MEDS: ONDANSETRON 4MG 2ML VIAL IV PRN (13:27)
[2024-10-11] MEDS: HYDROMORPHONE HCL 0.5 MG/ 0.5 ML SYRINGE IV PRN (13:46)
[2024-10-11] MEDS ORDERED: UBRO100T PO (14:28)
[2024-10-11] MEDS ORDERED: PROC10TA5 PO (14:28)
[2024-10-11] MEDS ORDERED: HOME MED LIST COMPLETE! XX SCH (14:30)
[2024-10-11] MEDS: ceFAZolin SODIUM 2 GM in DEXTROSE 5% (D5W) ADV/MINI-BAG 50 ML IV SCH (16:39)
[2024-10-11] MEDS: traMADol 50 MG TAB PO PRN (16:39)
[2024-10-11] MEDS: PERCOCET 5MG/325MG TAB PO PRN (18:36)
[2024-10-12 03:09] VITALS: BP 108/68; TEMP 97.7; O2SAT 95
[2024-10-12 06:42] VITALS: BP 112/74; TEMP 97.9; O2SAT 94
[2024-10-12] MEDS: OMEPRAZOLE 20MG CAP PO SCH (08:31)
[2024-10-12 08:32] VITALS: BP 128/71
[2024-10-12] MEDS: LOSARTAN 50MG TABLET PO SCH (08:32)
[2024-10-12] MEDS ORDERED: PERCOCET PO (10:11)
== END 2024-10-12 10:50 | disposition home or self-care (01) ==
LOC: M SDC 06:54 → M RR INP 06:55 → M MS5PR 14:05
PROVIDERS: ADMIT Plastic Surgery Surgery of the Hand; ATTEND Plastic Surgery Surgery of the Hand
DX: N62 Hypertrophy of breast (principal); M54.2 Cervicalgia; M54.6 Pain in thoracic spine; M95.4 Acquired deformity of chest and rib; L30.4 Erythema intertrigo; Z86.73 Personal history of transient ischemic attack (TIA), and cerebral infarction without residual deficits; Z79.899 Other long term (current) drug therapy
CPT/HCPCS: 19318; 88305; 96374; 96376; J0131; J0665; J0666; J0690; J1100; J1171; J1580; J2250; J2405; J3010

== ENCOUNTER → 2025-03-10 | Outpatient (CLI) | payer OTHER ==
[~2025-03-10] MED LIST changes: -LIDOCAINE 2% 100MG/5ML SDV (FOR ANES.) As Ordered ONE; -ONDANSETRON 4MG 2ML VIAL As Ordered ONE; +PERCOCET PO; +PROC10TA5 PO; -ROCURONIUM BROMIDE 50MG/5ML VIAL As Ordered ONE; +SENN-225 PO; -SENO8.6T5 PO; -SUGAMMADEX SODIUM 500 MG/5 ML VIAL (BRIDION) As Ordered ONE; +UBRO100T PO; -dexmedeTOMIDine (4MCG/ML)200MCG/50ML BTL (PRECEDEX) As Ordered ONE; -propofoL 200 MG/20 ML VIAL As Ordered ONE
== END ==
LOC: M WUC 08:36
PROVIDERS: ATTEND Family Medicine
DX: Z01.818 Encounter for other preprocedural examination (principal); Z98.1 Arthrodesis status

== ENCOUNTER → 2025-03-15 | Outpatient (CLI) | payer OTHER | LOC: M RAD 08:52 | PROVIDERS: ATTEND Nurse Practitioner Family | DX: M51.16 Intervertebral disc disorders with radiculopathy, lumbar region (principal); Z96.89 Presence of other specified functional implants ==

== ENCOUNTER → 2025-05-23 | Outpatient (CLI) | payer OTHER ==
[~2025-05-23] MED LIST changes: -VITA500T17 PO; +VITA500T8 PO
== END ==
LOC: M WUC 14:54
DX: R05.1 Acute cough (principal); J06.9 Acute upper respiratory infection, unspecified